=== PATIENT | male | born 1955 | race American Indian/Alaskan Native ===

== ENCOUNTER 2016-07-28 06:54 | Inpatient (IN) | payer OTHER ==
--- NOTE | 2016-07-28 07:51 | PDOC ---
*Physical Exam - Vital Signs Last Vital Signs Temp Pulse Resp BP Pulse Ox 98.5 F 102 H 18 164/105 97 07/28/16 07:16 07/28/16 07:16 07/28/16 07:16 07/28/16 07:16 07/28/16 07:16 ED Treatment Course - LABORATORY CBC & Chemistry Diagram: 07/28/16 08:30 07/28/16 08:00 Medical Decision Making - Critical Care Time Total Critical Care Time (minutes): 35 Critical Care Statement: The care of this patient involved high complexity decision making to prevent further life threatening deterioration of the patient 's condition and/or to evalute & treat vital organ system(s) failure or risk of failure. - Medical Decision Making 07/28/16 07:51 Pt seen by the Advanced Practice Provider under my direct supervision Ancillary studies reviewed I agree with plan as outlined by the Advanced Practice Provider ANA Abad 07/28/16 14:54 Code esposito activated in Nuclear stress lab. Prior to going to the stress lab at 13:48, the patient has had no neuro deficits. Ambulatory, and speaking. At 2:20 pm, code esposito initiated. Pt was noted to have slurred speech, aphasia, R sided facial droop and neglect, RUE and RLE weakness compared to left. Does not follow commands. Clinically, patient appears to have a stroke. CT scan of head demonstrates: acute vs. subacute right sided cerebellum stroke. However, this right sided stroke symptoms do not match up to the patient's CT finding. I suspect that the patient has had a previous subacute stroke (possible blood clot source from heart, as patient is likely with cardiomyopathy). This is likely a new stroke (likely left MCA). Pt is within TPA window. NIHSS: 17. Case discussed with Dr. Ortiz, who is coming in hospital now to evaluate patient. TPA on standby. alerted and will be coming into ED. 07/28/16 15:42 Dr. Ortiz evaluated patient and evaluated scans. Agrees for IV TPA for patient. at bedside consented for TPA. TPA ordered. The plan is to perform CTA of head and neck for large vessel occlusion after completion of TPA. If CTA demonstrates findings for large vessel occlusion, patient needs to be considered for transfer for endovascular therapy. Dr. Ortiz agrees with plan. in agreement with plan. *DC/Admit/Observation/Transfer Diagnosis at time of Disposition: Dyspnea on exertion, Elevated blood pressure reading Lower extremity edema Qualifiers: Laterality: bilateral Qualified Code(s): R60.0 - Localized edema
--- NOTE | 2016-07-28 08:02 | PDOC ---
History of Present Illness - General Chief Complaint: Shortness of Breath Stated Complaint: DIZZINESS/BLOOD PRESSURE PROBLEM Time Seen by Provider: 07/28/16 07:21 History Source: Patient Exam Limitations: No Limitations - History of Present Illness Initial Comments: 07/28/16 07:56 60-year-old male with history of diabetes, hypertension, dyslipidemia and CAD presents with increasing shortness of breath since May associated with continual elevated blood pressure. Patient states went to see his PCP Dr. Cisneros in May where he added Lasix to the patient's regimen and has a follow -up appointment with him on August 17. Patient states was seen by Dr. Bradley 3 years ago where he had an angioplasty but has not followed up with him since and is looking for a new education specialist since he is unhappy with the staff/office of Dr. Bradley's. Patient denies chest pain, headache, dizziness nausea, diaphoresis, orthopnea, or recent illness. Patient does complain of shortness of breath with minimal exertion, lower extremity edema, and a blood pressure ranging anywhere from 150s-106s over 90 -100. Presenting Symptoms: Short of Breath Timing/Duration: reports: intermittent Severity/Quality: reports: mild Prior Chest Pain/Cardiac Workup: reports: Other Aspirin Received prior to arrival (Core Measure): Yes: no aspirin today Associated Symptoms: Yes: Shortness of Breath Past History - Past Medical History Allergies/Adverse Reactions: Allergies Allergy/AdvReac Type Severity Reaction Status Date / Time No Known Allergies Allergy Verified 07/28/16 07:19 Home Medications: Ambulatory Orders Aspirin [ASA -] 81 mg PO DAILY 07/28/16 Furosemide 20 mg PO DAILY 07/28/16 Glipizide 4 mg PO BID 07/28/16 Metformin HCl 500 mg BID 07/28/16 Metoprolol Succinate [Toprol Xl -] 25 mg PO DAILY 07/28/16 Piroxicam 20 mg PO DAILY 07/28/16 Valsartan [Diovan] 160 mg PO DAILY 07/28/16 Cardiac Disorders: Yes Diabetes: Yes HTN: Yes Hypercholesterolemia: Yes - Surgical History Cardiac Surgery: (ANGIOPLASTY) - Psycho/Social/Smoking Cessation Hx Suicidal Ideation: No Smoking History: Never smoked Information on smoking cessation initiated: No Patient Lives Alone: No Lives with/in: spouse/SO Review of Systems - Review of Systems Able to Perform ROS?: Yes Constitutional: No: Symptoms Reported HEENTM: No: Symptoms Reported Respiratory: Yes: SOB with Exertion Cardiac (ROS): No: Symptoms Reported ABD/GI: No: Symptoms Reported : No: Symptoms Reported Musculoskeletal: No: Symptoms Reported Integumentary: No: Symptoms Reported Neurological: No: Symptoms reported Endocrine: No: Symptoms Reported Hematologic/Lymphatic: No: Symptoms Reported *Physical Exam - Vital Signs Last Vital Signs Temp Pulse Resp BP Pulse Ox 98 F 75 16 142/65 96 07/28/16 16:05 07/28/16 18:07 07/28/16 18:07 07/28/16 18:07 07/28/16 18:07 - Physical Exam General Appearance: Yes: Nourished, Appropriately Dressed. No: Apparent Distress HEENT: positive: EOMI, THANH. negative: Pale Conjunctivae Neck: positive: Supple Respiratory/Chest: positive: Lungs Clear, Normal Breath Sounds. negative: Respiratory Distress, Accessory Muscle Use Cardiovascular: positive: Regular Rhythm, Regular Rate (96 on monitor). negative: Murmur Gastrointestinal/Abdominal: positive: Normal Bowel Sounds, Soft, Distended. negative: Tenderness Extremity: positive: Normal Capillary Refill, Pedal Edema (2+ pitting) Integumentary: positive: Normal Color, Warm, Moist Neurologic: positive: Motor Strength 5/5 (ambulatory) Heart Score/ECG Review - ECG Intrepretation Rhythm: Regular Rhythm (sinus rhythm with left atrial enlargement rate 94.) ED Treatment Course - LABORATORY CBC & Chemistry Diagram: 07/28/16 08:30 07/28/16 08:00 - ADDITIONAL ORDERS Additional order review: Laboratory Results 07/28/16 07/28/16 08:00 08:00 Sodium 136 Potassium 4.3 Chloride 100 Carbon Dioxide 26 Anion Gap 10 BUN 17 D Creatinine 1.2 D Creat Clearance w eGFR > 60 Random Glucose 236 H D Calcium 8.5 Total Bilirubin 0.7 D AST 22 D ALT 44 D Alkaline Phosphatase 82 Creatine Kinase 287 Creatine Kinase Index 2.1 CK-MB (CK-2) 6.018 H CK-MB (CK-2) Rel Index Cancelled Troponin I < 0.02 B-Natriuretic Peptide 3390.58 H Total Protein 6.3 L Albumin 3.7 07/28/16 08:30 RBC 4.13 MCV 90.8 MCHC 33.3 RDW 14.6 MPV 7.9 Neutrophils % 74.0 D Lymphocytes % 18.4 D Monocytes % 6.1 Eosinophils % 0.8 Basophils % 0.7 - RADIOLOGY Radiology Studies Ordered: Category Date Time Status CHEST X-RAY PORTABLE* [RAD] Stat Radiology 07/28/16 07:25 Completed - Medications Given in the ED: ED Medications Discontinued Medications Generic Name Dose Route Start Last Admin Trade Name Freq PRN Reason Stop Dose Admin Furosemide 40 mg 07/28/16 12:28 07/28/16 13:01 Lasix Injection - IVPUSH 07/28/16 12:29 40 mg ONCE ONE Administration Labetalol HCl 10 mg 07/28/16 14:48 07/28/16 16:06 Normodyne Injection - IVPUSH 07/28/16 14:49 10 mg ONCE ONE Administration Labetalol HCl 10 mg 07/28/16 15:55 07/28/16 16:06 Normodyne Injection - IVPUSH 07/28/16 15:56 10 mg ONCE ONE Administration Labetalol HCl 10 mg 07/28/16 15:56 07/28/16 16:06 Normodyne Injection - IVPUSH 07/28/16 15:57 10 mg ONCE ONE Administration Lorazepam 1 mg 07/28/16 18:08 07/28/16 18:22 Ativan Injection - IVPUSH 07/28/16 18:09 1 mg ONCE ONE Administration Medical Decision Making - Critical Care Time Total Critical Care Time (minutes): 50 Critical Care Statement: The care of this patient involved high complexity decision making to prevent further life threatening deterioration of the patient 's condition and/or to evalute & treat vital organ system(s) failure or risk of failure. - Medical Decision Making 07/28/16 08:06 Patient with complaints of worsening shortness of breath on exertion, continual elevated blood pressure, and lower extremity edema for the past 2 months. Patient states was placed on Lasix [address] Cisneros which has not seemed to alleviate his symptoms. Patient denies history of CHF and has not seen a education specialist in approximately 3-1/2 years. patient on exam had 2+ pitting edema with no crackles or rales auscultated on exam. Patient ordered for cardiac workup including a BNP. Will contact patient's PCP Dr. Cisneros shortly 07/28/16 10:15 . Chest x-ray negative for acute findings. Case discussed with Dr. Cisneros and would like patient to be admitted to telemetry and have consultation with education specialist, Dr. Barker. Call placed to . 07/28/16 14:52 Patient was seen by education specialist who recommended that he have a stress test and a code esposito was activated while patient with a stress test since he was found to be mumbling and not following commands. Found patient to be aphasic with a left lateral gaze unable to follow commands with decreased right-sided sensation. CT of the head shows 07/28/16 14:55 Laboratory Tests 07/28/16 07/28/16 08:00 08:30 WBC 7.4 Hgb 12.5 Hct 37.5 Neutrophils % 74.0 D Sodium 136 Potassium 4.3 Chloride 100 Carbon Dioxide 26 Anion Gap 10 BUN 17 D Creatinine 1.2 D Random Glucose 236 H D Total Bilirubin 0.7 D AST 22 D ALT 44 D CK-MB (CK-2) 6.018 H Troponin I < 0.02 B-Natriuretic Peptide 3390.58 H 07/28/16 14:55 CT shows a well-developed demarcated had presents nonhemorrhagic acute or subacute infarct seen in the right posterior cerebellar hemisphere measuring up to 21 mm x 15 mm x 19 mm. Case discussed with Dr. Dale here in the ER shortly. also notified and is coming back to the emergency room. Dr. Cisneros also updated on case. Patient is to receive labetalol 10 secondary to elevated BP of 182/112 with a heart rate of 106. Will repeat if BP and pulse remained elevated at 10 mg. 07/28/16 15:17 Dr. Faith neurologist here at bedside. Patient reexamined and CT compared to one from 2014 patient is a candidate for TPA. Patient is still aphasic unable to follow commands. BP 171/90 with a heart rate of 97. Patient will receive second dose of labetalol 10 mg. made aware and consent given over the phone. 07/28/16 16:13 at bedside. Patient has a CTA of the head and neck scheduled in one hour after completion of the TPA. Patient given third dose of labetalol and will start a Cardene drip since pharmacy states we do not have enough medication to start a labetalol drip. 07/28/16 17:44 CTA of the neck shows short segment stenosis is seen involving the postbulbar segment of the right internal carotid artery which is probably 70% allowing for motion artifact. Note however is made of an apparent mild to moderate diffuse luminal narrowing involving the remainder of the right internal carotid artery which may be on the adaptive basis due to the previous described stenosis. There is approximately 30% stenosis at the origin of the left internal carotid artery. Case discussed with Dr. Ortiz neurologist and states wants patient to go for an MRI of the brain. Called MRI and they can take the patient now. Check list will be performed by the nurse at bedside and brought over by him. Dr. Ortiz does not feel that this CTA requires endovascular service since all the major arteries (MCA/RCA) to the brain are open despite the stenosis. 07/28/16 18:51 Case discussed with a neurologist Dr. Ortiz and feels patient may go upstairs and will review the MRI. Case also discussed with consumer analyst Dr. Lang who accepted patient to the floor. Patient's blood pressure 142/86 heart rate 84. Patient hasn't been assigned to room 16. 07/28/16 19:[address] Bright who states the right infarct is again noted but also all left frontal cortical infarct is seen. Attempting to call Dr. Ortiz to discuss findings although she stated patient is not a candidate for transfer and she'll be admitted to the ICU here at [facility]. *DC/Admit/Observation/Transfer Diagnosis at time of Disposition: Dyspnea on exertion, Elevated blood pressure reading Lower extremity edema Qualifiers: Laterality: bilateral Qualified Code(s): R60.0 - Localized edema - Discharge Dispostion Admit: Yes
[2016-07-28 08:52] LABS: ALBUMIN 3.7 g/dl (3.4-5.0); ANION GAP 10 (8-16); CALCIUM 8.5 mg/dL (8.5-10.1); CO2 26 mmol/L (21-32); CREATININE 1.2 mg/dL (0.7-1.3); GLUCOSE,RANDOM 236 mg/dL (74-106); SGPT/ALT 44 U/L (12-78)
[2016-07-28 08:57] LABS: ALK PHOS 82 U/L (45-117); BILIRUBIN,TOTAL 0.7 mg/dL (0.2-1.0); SGOT/AST 22 U/L (15-37); TOT PROT 6.3 g/dl (6.4-8.2); TROPONIN I < 0.02 ng/ml (0.00-0.05)
[2016-07-28 09:18] LABS: WHITE BLOOD COUNT 7.4 K/mm3 (4.0-10.0)
[2016-07-28 09:19] LABS: MCH 30.2 pg (25.7-33.7); MCHC 33.3 g/dl (32.0-35.9); MEAN CELL VOLUME 90.8 fl (80-96); MEAN PLT VOLUME 7.9 fl (7.5-11.1); PLATELET COUNT 205 K/MM3 (134-434); RDW 14.6 % (11.9-15.9)
[2016-07-28 09:20] LABS: BASOPHIL 0.7 % (0-2.0); EOSINOPHIL 0.8 % (0-4.5)
--- NOTE | 2016-07-28 12:27 | CON.CARD ---
Consult Consult Specialty:: Cardiology Referred by:: Dr. Cisneros Reason for Consultation:: Exertional dyspnea - History of Present Illness Chief Complaint: Exertional dyspnea History of Present Illness: 60 yo male with DM type 2, HTN, hyperlipidemia, and reported mild CAD, who presents to ED with ~ 1 month history of exertional dyspnea. Patient reports that he gets SOB walking only down the hallway. He reports undergoing a cardiac catheterization ~ 3 years ago at [facility] and reports only having mild non- obstructive disease at that time. No PCI was performed. He also reports that his BP has not been well controlled with reported SBP 150-160s on his valsartan 160 mg po daily. Patient was previously under the care of Dr. Bradley but due to office personnel reasons he no longer wants to follow with that practice and is requesting care under a new tire fabric impregnating range tender. Denies melena, hematochezia, or hematemesis. He reports having an "normal" echocardiogram at his PMD's office in February 2016. - History Source History Provided By: Patient Limitations to Obtaining History: No Limitations - Past Medical History Cardio/Vascular: Yes: CAD (Mild non-obstructive CAD per reported cath 3 years ago), HTN, Hyperlipdemia Endocrine: Yes: Diabetes Mellitus - Alcohol/Substance Use Hx Alcohol Use: No History of Substance Use: reports: None - Smoking History Smoking history: Never smoked Home Medications - Allergies Allergies/Adverse Reactions: Allergies Allergy/AdvReac Type Severity Reaction Status Date / Time No Known Allergies Allergy Verified 07/28/16 07:19 - Home Medications Home Medications: Ambulatory Orders Aspirin [ASA -] 81 mg PO DAILY 07/28/16 Furosemide 20 mg PO 07/28/16 Glipizide 4 mg PO BID 07/28/16 Metformin HCl 500 mg BID 07/28/16 Metoprolol Succinate/Hctz [Dutoprol 25-12.5 mg Tablet] 25 mg PO 07/28/16 Valsartan [Diovan] 160 mg PO DAILY 07/28/16 Family Disease History - Family Disease History Family History: Denies (premature CAD or sudden cardiac ) Review of Systems - Review of Systems Constitutional: reports: No Symptoms Eyes: reports: No Symptoms HENT: reports: No Symptoms Neck: reports: No Symptoms Cardiovascular: reports: Edema, Shortness of Breath Respiratory: reports: SOB, SOB on Exertion Gastrointestinal: reports: No Symptoms Genitourinary: reports: No Symptoms Musculoskeletal: reports: No Symptoms Neurological: reports: No Symptoms Endocrine: reports: No Symptoms Hematology/Lymphatic: reports: No Symptoms Psychiatric: reports: No Symptoms Vital Signs: Vital Signs Temperature 98.5 F 07/28/16 07:16 Pulse Rate 88 07/28/16 12:06 Respiratory Rate 14 07/28/16 12:06 Blood Pressure 151/81 07/28/16 12:06 O2 Sat by Pulse Oximetry (%) 98 07/28/16 12:06 Constitutional: Yes: Well Nourished, No Distress, Obese Eyes: Yes: Conjunctiva Clear, EOM Intact HENT: Yes: Atraumatic, Normocephalic Respiratory: Yes: CTA Bilaterally Gastrointestinal: Yes: Normal Bowel Sounds, Soft. No: Tenderness Cardiovascular: Yes: Regular Rate and Rhythm JVD: No Carotid Bruit: No Heart Sounds: Yes: S1, S2 Murmur: No: Systolic Murmur Musculoskeletal: Yes: WNL Edema: Yes Edema: LLE: 1+, RLE: 1+ Neurological: Yes: Alert, Oriented, Cran Nerves II-XII Intact ...Motor Strength: WNL Psychiatric: Yes: WNL - Other Data 07/28/16 ECG: Sinus, LVH, LAD, left atrial enlargement, non-specific ST-T abnormalities Imaging - Results Chest X-ray: Image Reviewed (07/28/16: Mild pulmonary vascular congestion) Assessment/Plan 60 yo male with DM type 2, HTN, hyperlipidemia, and reported mild CAD (per cardiac cath ~ 3 months ago), who presents to ED with ~ 1 month history of exertional dyspnea. CXR demonstrates mild vascular congestion per my review. BNP elevated at 3390. Suspicion for CHF either due to underlying ischemic heart disease versus long standing uncontrolled HTN. 1st troponin negative. No ischemic ECG changes, but does demonstrate LVH. RECS: Admit to telemetry. Will perform echocardiogram to assess LV function and structural heart disease. Treadmill nuclear stress test for ischemic evaluation/risk stratification. Hold metoprolol in preparation for stress test. Will increase valsartan as needed for optimal BP control. Will follow. Call with questions.
[2016-07-28] MEDS ORDERED: FUROSEMIDE 40 MG/4 ML INJECTABLE VIAL IVPUSH ONE (12:28)
[2016-07-28] MEDS ORDERED: FUROSEMIDE 40 MG/4 ML INJECTABLE VIAL ONE (12:58)
[2016-07-28] MEDS ORDERED: LABETALOL HCL 5 MG/1 ML (100MG/20 ML VIAL) IVPUSH ONE ×3 (14:48→15:56)
--- NOTE | 2016-07-28 14:51 | PDOC ---
NIH Stroke Scale - Last Known Well Date/Time & Onset Date Last Known Well: 07/28/16 Time Last Known Well: 13:48 - Initial Evaluation Level of consciousness: Not alert, but arousable with minimal stimulation Ask patient the month and their age: Both incorrect Ask patient to open & close eyes; make fist and let go: Both incorrect Best gaze (horizontal eye movement): Partial gaze palsy Visual field testing: No visual field loss Facial paresis (Show teeth/raise eyebrows/close eyes tight): Minor paralysis ( flattened nasolabial fold, asymmetry on smiling) Motor Function: Left Arm: Normal Motor Function: Right Arm: Drift Motor Function: Left Leg: Normal (extends leg 30 degrees for 5 seconds without drift) Motor Function: Right Leg: Drift Limb Ataxia: No ataxia Sensory(Use pinprick test arms,legs,trunk,face/side to side): Severe to total sensory loss Best language (Describe picture, name items, read sentences): Severe aphasia Dysarthria (read several words): Near unintelligible or unable to speak Extinction and Inattention: Profound jesus-inattention or extinction to more than one modality - Total Score NIH Stroke Scale Score: 17
[2016-07-28] MEDS ORDERED: LABETALOL HCL 5 MG/1 ML (200MG/40ML VIAL) IVPB ONE (14:52)
[2016-07-28] MEDS ORDERED: ALTEPLASE 100MG 100 MG IVPB ONE (14:56)
[2016-07-28 15:06] LABS: INR 1.06 (0.82-1.09); PROTHROMBIN TIME (PATIENT) 11.7 SEC (9.98-11.88)
[2016-07-28] MEDS: ALTEPLASE 50 MG VIAL IVPB ONE ×2 (15:20)
--- NOTE | 2016-07-28 15:35 | RAPID ---
Physical Examination Vital Signs: Vital Signs Temperature 98.5 F 07/28/16 07:16 Pulse Rate 88 07/28/16 12:06 Respiratory Rate 14 07/28/16 12:06 Blood Pressure 191/121 07/28/16 14:30 O2 Sat by Pulse Oximetry (%) 98 07/28/16 12:06 Findings/Remarks: Code Qureshi initiated in nuclear cardiology As per tech, pt received radioactive isotope and was placed in the machine and became aphasic and not responding to commands on my arrival pt is mumbling and unable to respond to simple questioning. + facial droop, pronator drift on the R. does not follow commands. spontaneous movement of the LUE and LLE noted but not moving R side. vitals stable. Fingerstick 107. NIHSS 14 pt emergently pushed to CT for head CT and transferred to ER. neurology contacted about initiation of TPA.
[2016-07-28] MEDS ORDERED: LABETALOL HCL INJECTION 1,000 MG in SODIUM CHLORIDE 800 ML IV SCH (16:00)
[2016-07-28 16:19] VITALS: BMI 79.4
[2016-07-28] MEDS: NICARDIPINE 25 MG in DEXTROSE 5%-WATER - 240 ML IVPB SCH (16:45)
--- NOTE | 2016-07-28 17:03 | EKG ---
Test Reason : Blood Pressure : / mmHG Vent. Rate : 094 BPM Atrial Rate : 094 BPM P-R Int : 138 ms QRS Dur : 122 ms QT Int : 390 ms P-R-T Axes : 068 -58 070 degrees QTc Int : 487 ms NORMAL SINUS RHYTHM POSSIBLE LEFT ATRIAL ENLARGEMENT LEFT ANTERIOR FASCICULAR BLOCK LEFT VENTRICULAR HYPERTROPHY WITH QRS WIDENING ABNORMAL ECG NO PREVIOUS ECGS AVAILABLE Confirmed by FRANCA HERRING, VIRIDIANA ([id number]) on 07/28/2016 5:03:33 PM Referred By: Confirmed By:VIRIDIANA SCHULTE MD
--- NOTE | 2016-07-28 17:22 | CON.NEURO ---
Consult Consult Specialty:: NEUROLOGY Reason for Consultation:: sudden right side weakness, aphasia - History of Present Illness History of Present Illness: 60 yo male with pmh.of DM type 2, HTN, hyperlipidemia, CAD, on ASA daily, presented to ED for one month exertional dyspnea. He was talking and walking in ED this morning till 1.38pm. He was admitted for cardiac work up and sent to the stress cardiac lab. In the lab.stress test at 2.20pm. it was noticed then he is not talking anymore and he has right facial droop and righs side weakness. Code esposito- stroke code was activated at 2.20pm. in the cardiac stress lab. LSN at 1.38pm. in ED. Examined the patient in ED at 3.00pm. CT head done , was negative for intracranial bleed. The was consulted over the phone and obtain consent for ivtpa. bolus iv.tpa at 3.21pm. NIHS was 20 points: 2p.not answers questions, 2p. not following commands, 1p left gaze deviation, 1p.RCFP, 3p. RUE, 2p RLE, 1p right sensory loss, 2p. severe aphasia, 2p . severe dysarthria, 1p. extinction - right side neglect. - Past Medical History Cardio/Vascular: Yes: CAD (Mild non-obstructive CAD per reported cath 3 years ago), HTN, Hyperlipdemia Endocrine: Yes: Diabetes Mellitus - Alcohol/Substance Use Hx Alcohol Use: No History of Substance Use: reports: None - Smoking History Smoking history: Never smoked Home Medications - Allergies Allergies/Adverse Reactions: Allergies Allergy/AdvReac Type Severity Reaction Status Date / Time No Known Allergies Allergy Verified 07/28/16 07:19 - Home Medications Home Medications: Ambulatory Orders Aspirin [ASA -] 81 mg PO DAILY 07/28/16 Furosemide 20 mg PO DAILY 07/28/16 Glipizide 4 mg PO BID 07/28/16 Metformin HCl 500 mg BID 07/28/16 Metoprolol Succinate [Toprol Xl -] 25 mg PO DAILY 07/28/16 Piroxicam 20 mg PO DAILY 07/28/16 Valsartan [Diovan] 160 mg PO DAILY 07/28/16 Review of Systems - Review of Systems Constitutional: reports: No Symptoms Eyes: reports: No Symptoms HENT: reports: No Symptoms Neck: reports: No Symptoms Cardiovascular: reports: Edema, Shortness of Breath Respiratory: reports: SOB, SOB on Exertion Gastrointestinal: reports: No Symptoms Genitourinary: reports: No Symptoms Breasts: reports: No Symptoms Reported Musculoskeletal: reports: No Symptoms Integumentary: reports: No Symptoms Neurological: reports: No Symptoms Endocrine: reports: No Symptoms Hematology/Lymphatic: reports: No Symptoms Psychiatric: reports: No Symptoms Physical Exam-Neuro Vital Signs: Vital Signs Temperature 98 F 07/28/16 16:05 Pulse Rate 83 07/28/16 16:05 Respiratory Rate 18 07/28/16 16:05 Blood Pressure 156/88 07/28/16 16:05 O2 Sat by Pulse Oximetry (%) 98 07/28/16 16:05 Constitutional: Yes: Anxious Neck: Yes: Supple, Trachea Midline Cardiovascular: Yes: Regular Rate and Rhythm, S1, S2 Respiratory: Yes: Regular, CTA Bilaterally Gastrointestinal: Yes: Normal Bowel Sounds, Soft Musculoskeletal: Yes: WNL Edema: Yes Edema: LLE: Trace, RLE: Trace Psychiatric: Yes: Alert Labs: INR, PTT INR 1.06 (0.82-1.09) 07/28/16 14:50 - Neuro Exam Eyes: Yes: PERRLA Speech: Global Aphasia Dominant Hand: Right Cranial Nerves II-XII Intact: No Gag: Present DTR's: 1+ Left Bicep, 1+ Right Bicep, 1+ Left Tricep, 1+ Right Tricep, 1+ Left Brachioradialis, 1+ Right Brachioradialis, 1+ Left Achilles, 1+ Right Achilles Babinski: Absent Response to light touch: Abnormal NIH Stroke Scale - Last Known Well Date/Time & Onset Symptom Onset Date: 07/28/16 Symptom Onset Time: 14:20 Date Last Known Well: 07/28/16 Time Last Known Well: 13:40 - Initial Evaluation Level of consciousness: Alert Ask patient the month & their age: Both Incorrect Ask Patient to open & close eyes; make fist and let go.: Both Incorrect Best gaze (horizontal eye movement): Partial Gaze Palsy Visual Field Testing: No Visual Loss Facial Palsy(Show teeth or raise eyebrows & close eyes: Minor Paralysis ( Flattened nasolabial fold, asymmetry on smiling). Motor Function - Right Arm: No effort against gravity Motor Function - Left Leg: No Drift; leg holds 30 degree position for full 5 seconds. Motor Function - Right Leg: Some Effort against gravity Limb Ataxia: Absent (also used for the pt who does not understand or paralyzed) Sensory (arms, legs, trunk, face): Severe to total sensory loss; pt not aware of being touched Best Language: Severe aphasia;all communication is through fragmentary expression Dysarthria/Articulation: speech so slurred as to be unintelligible; or is mute/ anarthric Extinction and Inattention: Inattention or Extinction bilaterally one of the sensory modalities - Total Score NIH Stroke Scale Score: 16 Imaging - Results Cat Scan: Report Reviewed, Image Reviewed Problem List - Problems (1) Acute ischemic left middle cerebral artery (MCA) stroke Code(s): I63.512 - CEREB INFRC D/T UNSP OCCLS OR STENOS OF LEFT MID CEREB ART (2) Aphasia complicating stroke Code(s): I63.9 - CEREBRAL INFARCTION, UNSPECIFIED R47.01 - APHASIA (3) Hemiplegia affecting dominant side Code(s): G81.90 - HEMIPLEGIA, UNSPECIFIED AFFECTING UNSPECIFIED SIDE Assessment/Plan 60 yo male with pmh.of DM type 2, HTN, hyperlipidemia, CAD, on ASA daily, presented to ED for one month exertional dyspnea. He was talking and walking in ED this morning till 1.38pm. He was admitted for cardiac work up and sent to the stress cardiac lab. In the lab.stress test at 2.20pm. it was noticed then he is not talking anymore and he has right facial droop and righs side weakness. Code esposito- stroke code was activated at 2.20pm. in the cardiac stress lab. LSN at 1.38pm. in ED. Examined the patient in ED at 3.00pm. CT head done , was negative for intracranial bleed. The was consulted over the phone and obtain consent for ivtpa. bolus iv.tpa at 3.21pm. NIHS was 20 points: 2p.not answers questions, 2p. not following commands, 1p left gaze deviation, 1p.RCFP, 3p. RUE, 2p RLE, 1p right sensory loss, 2p. severe aphasia, 2p . severe dysarthria, 1p. extinction - right side neglect. Impression: acute ischemic stroke . Plan: - patient was a candidate for ivtpa. he received ivtpa in the hospital. - maintain SBP 100-130mmHG. - labetolol ip. - NPO for now. - admit to ICU. neurocheck q 1h. - check for CTA head and neck if there is a major vessel occlusion . The patient should be transferred to an endovascular center if any intracranial MCA or ICA occlusion. However the patient started to move the RUE after ivtpa infusion. Still aphasic global. - to check with CT head tomorrow at 4pm. if no bleed to be started on ASA and Plavix tomorrow - PT/ST/OT - DVT prophylaxis. - stroke work up : MRI brain, echocardiogram, doppler carotids, lipids profile, HbA1C thank you for this consult. Will follow Critical Care Time Spent in ED 50min.
[2016-07-28] MEDS ORDERED: LORAZEPAM CARPU-JECT 2 MG/ML DISP.SYRIN IVPUSH ONE (18:08)
[2016-07-28] MEDS ORDERED: LORAZEPAM CARPU-JECT 2 MG/ML DISP.SYRIN ONE (18:10)
--- NOTE | 2016-07-28 18:14 | HP ---
Admitting History and Physical - Admission History of Present Illness: 60 yo male with pmh.of DM type 2, HTN, hyperlipidemia, CAD, on ASA daily, presented to ED for one month exertional dyspnea. He was talking and walking in ED this morning till 1.38pm. He was admitted for cardiac work up and sent to the stress cardiac lab. In the lab.stress test at 2.20pm. it was noticed then he is not talking anymore and he has right facial droop and righs side weakness. Code esposito- stroke code was activated at 2.20pm. in the cardiac stress lab. Pt evaluated in er moving extremities awake can say a few words - Past Medical History Cardiovascular: Yes: CAD (Mild non-obstructive CAD per reported cath 3 years ago ), HTN, Hyperlipdemia Endocrine: Yes: Diabetes Mellitus - Smoking History Smoking history: Never smoked - Alcohol/Substance Use Hx Alcohol Use: No History of Substance Use: reports: None Home Medications - Allergies Allergies/Adverse Reactions: Allergies Allergy/AdvReac Type Severity Reaction Status Date / Time No Known Allergies Allergy Verified 07/28/16 07:19 - Home Medications Home Medications: Ambulatory Orders Aspirin [ASA -] 81 mg PO DAILY 07/28/16 Furosemide 20 mg PO DAILY 07/28/16 Glipizide 4 mg PO BID 07/28/16 Metformin HCl 500 mg BID 07/28/16 Metoprolol Succinate [Toprol Xl -] 25 mg PO DAILY 07/28/16 Piroxicam 20 mg PO DAILY 07/28/16 Valsartan [Diovan] 160 mg PO DAILY 07/28/16 Review of Systems - Review of Systems Cardiovascular: reports: Chest Pain, Shortness of Breath. denies: Palpitations Respiratory: reports: SOB, SOB on Exertion Neurological: reports: Change in LOC, Change in Speech, Weakness (rt side) Physical Examination Vital Signs: Vital Signs Temperature 98 F 07/28/16 16:05 Pulse Rate 75 07/28/16 18:07 Respiratory Rate 16 07/28/16 18:07 Blood Pressure 142/65 07/28/16 18:07 O2 Sat by Pulse Oximetry (%) 96 07/28/16 18:07 Cardiovascular: Yes: Murmur, S1, S2 Respiratory: Yes: Regular, CTA Bilaterally Gastrointestinal: Yes: Normal Bowel Sounds, Soft Neurological: Yes: Alert, Aphasia, Weakness (rt side) Problem List - Problems (1) Acute ischemic left middle cerebral artery (MCA) stroke Assessment/Plan: S/P TPA ASA PER NEURO STATIN BP CONTROL Code(s): I63.512 - CEREB INFRC D/T UNSP OCCLS OR STENOS OF LEFT MID CEREB ART (2) Aphasia complicating stroke Assessment/Plan: ABOVE Code(s): I63.9 - CEREBRAL INFARCTION, UNSPECIFIED R47.01 - APHASIA (3) Dyspnea on exertion Assessment/Plan: S/P LASIX MONITOR ECHO NOTED--LV DYSFUNCTION Code(s): R06.09 - OTHER FORMS OF DYSPNEA (4) CAD (coronary artery disease) Assessment/Plan: FOLLOW CE Code(s): I25.10 - ATHSCL HEART DISEASE OF [place] CORONARY ARTERY W/O ANG PCTRS
[2016-07-28 18:54] LABS: TROPONIN I 0.02 ng/ml (0.00-0.05)
--- NOTE | 2016-07-28 20:39 | CONSULT ---
Consult Consult Specialty:: PULM / CCM Referred by:: Dr. Smooth Cisneros Reason for Consultation:: CVA - History of Present Illness Chief Complaint: CVA History of Present Illness: Mr. De Oliveira is a 60 y/o man w/ a Hx/o HTN, DMII, HL, and CAD who presents to the ED today c/o worsening exertional dyspnea X past 3 mos. Pt reports SOB w/ minimal walking. A/p pt report, pt underwent cardiac catheterization ~ 3 years ago at [facility] and reports having only mild non-obstructive disease w/ NO PCI performed @ that time. The pt also reports that his BP has not been well controlled w/ reported SBP 150-160s despite full med compliance (including valsartan X 160 mg PO QD). A/p report, the Pt denied any: prodrome, CP, orthopnea, diaphoresis, DRAPER, Dizzy, or N/V/D. The pt did endorse lower extremity edema. Pt was seen by CARDS in ED and it was decided to perform a nuclear stress test this afternoon. @ 1440Hrs this PM the Pt was noted to have sudden slurred speech, aphasia, stopped following commands, R sided facial droop and neglect, w/ RUE and RLE weakness. A [facility] Code Qureshi - stroke code was activated @ 1440Hrs in the cardiac stress lab. (Pt last seen normal @ 1338Hrs in ED). NIHS = 20: 2p.not answers questions, 2p. not following commands, 1p left gaze deviation, 1p.RCFP, 3p. RUE, 2p RLE, 1p right sensory loss, 2p. severe aphasia, 2p . severe dysarthria, 1p. extinction - right side neglect. NCHCT negative for intracranial bleed. IV TPA Adm @ 1521Hrs w/ marked improvememt in all Signs & symptoms. Pt Transferred to the ICU for close observation, frequent Neuro checks, & tight BP control w/ vasoactive IV medication gtts. MRI Nikita shows acute non-hemorrhagic L frontal cortical infarction. - History Source History Provided By: Significant Other, Medical Record Limitations to Obtaining History: Clinical Condition - Past Medical History Cardio/Vascular: Yes: CAD (Mild non-obstructive CAD per reported cath 3 years ago), HTN, Hyperlipdemia Endocrine: Yes: Diabetes Mellitus - Alcohol/Substance Use Hx Alcohol Use: No History of Substance Use: reports: None - Smoking History Smoking history: Never smoked - Social History Usual Living Arrangement: With Spouse ADL: Independent Occupation: [employer] History of Recent Travel: No Home Medications - Allergies Allergies/Adverse Reactions: Allergies Allergy/AdvReac Type Severity Reaction Status Date / Time No Known Allergies Allergy Verified 07/28/16 07:19 - Home Medications Home Medications: Ambulatory Orders Aspirin [ASA -] 81 mg PO DAILY 07/28/16 Furosemide 20 mg PO DAILY 07/28/16 Glipizide 4 mg PO BID 07/28/16 Metformin HCl 500 mg BID 07/28/16 Metoprolol Succinate [Toprol Xl -] 25 mg PO DAILY 07/28/16 Piroxicam 20 mg PO DAILY 07/28/16 Valsartan [Diovan] 160 mg PO DAILY 07/28/16 Family Disease History - Family Disease History Family History: Unable to Obtain (Aphasic) Review of Systems Unable to obtain ROS, reason: Aphasic Physical Exam Vital Signs: Vital Signs Temperature 98 F 07/28/16 16:05 Pulse Rate 75 07/28/16 18:07 Respiratory Rate 16 07/28/16 18:07 Blood Pressure 142/65 07/28/16 18:07 O2 Sat by Pulse Oximetry (%) 96 07/28/16 18:07 Constitutional: Yes: Well Nourished, No Distress, Calm Eyes: Yes: WNL, Conjunctiva Clear, EOM Intact HENT: Yes: WNL, Atraumatic, Normocephalic Neck: Yes: WNL, Supple, Trachea Midline Cardiovascular: Yes: WNL, Regular Rate and Rhythm, Murmur Respiratory: Yes: WNL, Regular, CTA Bilaterally Gastrointestinal: Yes: WNL, Normal Bowel Sounds, Soft, Abdomen, Obese ...Rectal Exam: Yes: Deferred Renal/: Yes: WNL Breast(s): Yes: WNL Musculoskeletal: Yes: WNL Extremities: Yes: WNL Edema: No Peripheral Pulses WNL: Yes ...Motor Strength: WNL Psychiatric: Yes: WNL, Alert Labs: CBC, BMP 07/28/16 08:30 07/28/16 08:00 Troponin, BNP 07/28/16 07/28/16 08:00 17:00 Troponin I < 0.02 0.02 B-Natriuretic Peptide 3390.58 H Imaging - Results Chest X-ray: Image Reviewed (07/28: Cardiomegaly. Mild vascular congestion otherwise clear (My Read).) Cat Scan: Report Reviewed (CTA HEAD & NECK 07/28: A short segment stenosis ( estimated @ ~ 70%) is identified involving the proximal R internal carotid artery and there is also associated adaptive luminal narrowing of the more distal R internal carotid artery.), Image Reviewed (NCHCT 07/28: NO ACUTE INTRACRANIAL HEMORRHAGE) MRI: Report Reviewed (07/28: Acute L Frontal Cortical infarction.) EKG: Image Reviewed (07/28: RSR in the 90's w/o ect, LVH w/ no ischemic changes, QTc = 487ms (My Read).) Problem List - Problems (1) Acute ischemic left middle cerebral artery (MCA) stroke Code(s): I63.512 - CEREB INFRC D/T UNSP OCCLS OR STENOS OF LEFT MID CEREB ART (2) Aphasia complicating stroke Code(s): I63.9 - CEREBRAL INFARCTION, UNSPECIFIED R47.01 - APHASIA (3) CAD (coronary artery disease) Code(s): I25.10 - ATHSCL HEART DISEASE OF [place] CORONARY ARTERY W/O ANG PCTRS (4) Elevated blood pressure reading Code(s): R03.0 - ELEVATED BLOOD-PRESSURE READING, W/O DIAGNOSIS OF HTN (5) Hyperlipidemia Code(s): E78.5 - HYPERLIPIDEMIA, UNSPECIFIED (6) Diabetes Code(s): E11.9 - TYPE 2 DIABETES MELLITUS WITHOUT COMPLICATIONS Assessment/Plan ASSESS: This is a 60 y/o man w/ HTN, DMII, HL, & CAD who presents to ED c/o SOB , developed an acute non-hemorrhagic CVA while in ED (m/l 2/2 major cardiomyopathy), now s/p TPA recovering well. PLAN: -NPO -HOB > 30 -Asp Precautions -FiO2 for an SpO2 > 92% -Neuro checks q 1hr -No Valsartan in the ICU -Nicardipine gtt for BP conrol Goal SBP 100 - 130 -LE Duplex -Carotid Dopplers -Lipid Profile -NEURO Consult -TTE -Troponin X 3 -check urine VMAs -check serum aldosterone -Check TSH / FreeT4 -am/pm cortisol level -CARDS Consult --> NEW CHF (BNP > 3,000) -FSs -Insulin prn -HgbA1C -SCDs -SQH a/p TPA protocol -PT/OT -Consider transfering this pt to an endovascular center for R internal carotid artery stenosis -Transfer pt to [address] [place] [address] Stroke Unit in the AM. This patient has multiple comorbidities including but NOT limited to HTN, HL, DMII, & CAD. From a clinical and treatment plan perspective, considering this pt s comorbidities as well as his new CVA, this pt has a high mortality rate and satisfies the definition of critical condition. Thus, this pt requires inpatient admit to the ICU and based on these facts I do certify that this pt is expected to receive hospital services for at least 2 midnights.
[2016-07-28 21:23] LABS: TROPONIN I 0.02 ng/ml (0.00-0.05)
[2016-07-28] MEDS: CHLORHEXIDINE GLUCONATE 4% CLEANSER FOR DECOLONIZATION TP SCH (21:30)
[2016-07-28] MEDS ORDERED: MUPIROCIN 2% TOPICAL OINTMENT FOR DECOLONIZATION NS SCH ×2 (22:00)
[2016-07-28] MEDS ORDERED: CHLORHEXIDINE GLUCONATE 4% CLEANSER FOR DECOLONIZATION TP SCH ×2 (22:00)
[2016-07-28] MEDS: ATORVASTATIN CA 80 MG TABLET (FP) PO SCH (22:32)
[2016-07-28] MEDS: MUPIROCIN 2% TOPICAL OINTMENT FOR DECOLONIZATION NS SCH (22:40)
[2016-07-28] MEDS ORDERED: niCARdipine HCL 25 MG/10 ML AMPUL IVPB ONE (23:38)
[2016-07-28] MEDS: INSULIN SLIDING SCALE (NOVOLOG) 1 VIAL SQ SCH (23:41)
--- NOTE | 2016-07-29 01:34 | CONSULT ---
Consult Consult Specialty:: endocrine Referred by:: dr.annabi lopez Reason for Consultation:: hypertensive crisis - History of Present Illness Chief Complaint: weakness and facial droop History of Present Illness: 60yo male with pmh.of DM type 2, HTN, hyperlipidemia, CAD, on ASA daily, presented to ED for one month exertional dyspnea. He was talking and walking in ED t61his morning till 1.38pm. He was admitted for cardiac work up and sent to the stress cardiac lab. In the lab.stress test at 2.20pm. it was noticed then he is not talking anymore and he has right facial droop and righs side weakness.his dad had a stroke.he denies history of thyroid disease. - History Source History Provided By: Patient - Past Medical History Cardio/Vascular: Yes: CAD (Mild non-obstructive CAD per reported cath 3 years ago), HTN, Hyperlipdemia Endocrine: Yes: Diabetes Mellitus - Alcohol/Substance Use Hx Alcohol Use: No History of Substance Use: reports: None - Smoking History Smoking history: Never smoked - Social History Usual Living Arrangement: With Spouse ADL: Independent Occupation: [employer] History of Recent Travel: No Home Medications - Allergies Allergies/Adverse Reactions: Allergies Allergy/AdvReac Type Severity Reaction Status Date / Time No Known Allergies Allergy Verified 07/28/16 07:19 - Home Medications Home Medications: Ambulatory Orders Aspirin [ASA -] 81 mg PO DAILY 07/28/16 Furosemide 20 mg PO DAILY 07/28/16 Glipizide 4 mg PO BID 07/28/16 Metformin HCl 500 mg BID 07/28/16 Metoprolol Succinate [Toprol Xl -] 25 mg PO DAILY 07/28/16 Piroxicam 20 mg PO DAILY 07/28/16 Valsartan [Diovan] 160 mg PO DAILY 07/28/16 Review of Systems Unable to obtain ROS, reason: slurred speech Physical Exam Vital Signs: Vital Signs Temperature 97.1 F L 07/28/16 22:00 Pulse Rate 78 07/29/16 00:00 Respiratory Rate 26 H 07/29/16 00:00 Blood Pressure 123/69 07/29/16 00:00 O2 Sat by Pulse Oximetry (%) 97 07/28/16 19:30 Constitutional: Yes: Calm Eyes: Yes: EOM Intact HENT: Yes: Normocephalic Neck: Yes: Trachea Midline Cardiovascular: Yes: Regular Rate and Rhythm Respiratory: Yes: CTA Bilaterally Gastrointestinal: Yes: Normal Bowel Sounds ...Rectal Exam: Yes: Deferred Renal/: Yes: WNL Breast(s): Yes: WNL Musculoskeletal: Yes: WNL Extremities: Yes: Other (r upper and lower extremity weakness) Edema: No Peripheral Pulses WNL: Yes Neurological: Yes: Alert, Babinski positive, Numbness, Weakness Psychiatric: Yes: Alert Problem List - Problems (1) Acute ischemic left middle cerebral artery (MCA) stroke Code(s): I63.512 - CEREB INFRC D/T UNSP OCCLS OR STENOS OF LEFT MID CEREB ART (2) Aphasia complicating stroke Code(s): I63.9 - CEREBRAL INFARCTION, UNSPECIFIED R47.01 - APHASIA (3) Elevated blood pressure reading Code(s): R03.0 - ELEVATED BLOOD-PRESSURE READING, W/O DIAGNOSIS OF HTN (4) Hemiplegia affecting dominant side Code(s): G81.90 - HEMIPLEGIA, UNSPECIFIED AFFECTING UNSPECIFIED SIDE Assessment/Plan Current Active Problems Acute ischemic left middle cerebral artery (MCA) stroke (Acute) Aphasia complicating stroke (Acute) CAD (coronary artery disease) (Acute) Dyspnea on exertion (Acute) Elevated blood pressure reading (Acute) Hemiplegia affecting dominant side (Acute) Lower extremity edema (Acute) niddm insulin resistant/morbid obesity Abnormal Lab Results 07/28/16 08:00 Random Glucose 236 H D CK-MB (CK-2) 6.018 H B-Natriuretic Peptide 3390.58 H Total Protein 6.3 L Laboratory Results - last 24 hr 07/28/16 07/28/16 07/28/16 08:00 08:00 08:30 WBC 7.4 RBC 4.13 Hgb 12.5 Hct 37.5 MCV 90.8 MCHC 33.3 RDW 14.6 Plt Count 205 MPV 7.9 Neutrophils % 74.0 D Lymphocytes % 18.4 D Monocytes % 6.1 Eosinophils % 0.8 Basophils % 0.7 INR Sodium 136 Potassium 4.3 Chloride 100 Carbon Dioxide 26 Anion Gap 10 BUN 17 D Creatinine 1.2 D Creat Clearance w eGFR > 60 POC Glucometer Random Glucose 236 H D Calcium 8.5 Total Bilirubin 0.7 D AST 22 D ALT 44 D Alkaline Phosphatase 82 Creatine Kinase 287 Creatine Kinase Index 2.1 CK-MB (CK-2) 6.018 H CK-MB (CK-2) Rel Index Cancelled Troponin I < 0.02 B-Natriuretic Peptide 3390.58 H Total Protein 6.3 L Albumin 3.7 07/28/16 07/28/16 07/28/16 14:21 14:50 17:00 WBC RBC Hgb Hct MCV MCHC RDW Plt Count MPV Neutrophils % Lymphocytes % Monocytes % Eosinophils % Basophils % INR 1.06 Sodium Potassium Chloride Carbon Dioxide Anion Gap BUN Creatinine Creat Clearance w eGFR POC Glucometer 107 Random Glucose Calcium Total Bilirubin AST ALT Alkaline Phosphatase Creatine Kinase 229 D Creatine Kinase Index CK-MB (CK-2) CK-MB (CK-2) Rel Index Troponin I 0.02 B-Natriuretic Peptide Total Protein Albumin 07/28/16 07/28/16 07/28/16 17:00 20:30 20:30 WBC RBC Hgb Hct MCV MCHC RDW Plt Count MPV Neutrophils % Lymphocytes % Monocytes % Eosinophils % Basophils % INR Sodium Potassium Chloride Carbon Dioxide Anion Gap BUN Creatinine Creat Clearance w eGFR POC Glucometer Random Glucose Calcium Total Bilirubin AST ALT Alkaline Phosphatase Creatine Kinase 204 Creatine Kinase Index CK-MB (CK-2) CK-MB (CK-2) Rel Index Cancelled Cancelled Troponin I 0.02 B-Natriuretic Peptide Total Protein Albumin plan: check vma urine check serum aldosterone \tsh free t4 am/pm cortisol level
[2016-07-29] MEDS ORDERED: FUROSEMIDE INJECTION 100 MG in SODIUM CHLORIDE 90 ML IVPB SCH (03:00)
[2016-07-29] MEDS ORDERED: FUROSEMIDE 100 MG/10 ML INJECTABLE VIAL ONE (03:17)
[2016-07-29] MEDS ORDERED: HEMOQUE TEST 1 EACH EACH ONE (05:16)
[2016-07-29 05:48] LABS: BASOPHIL 0.6 % (0-2.0); EOSINOPHIL 0.4 % (0-4.5); MCH 29.8 pg (25.7-33.7); MCHC 33.4 g/dl (32.0-35.9); MEAN CELL VOLUME 89.4 fl (80-96); MEAN PLT VOLUME 7.9 fl (7.5-11.1); NEUTROPHILS 75.4 % (42.8-82.8); PLATELET COUNT 232 K/MM3 (134-434); RDW 15.1 % (11.9-15.9); WHITE BLOOD COUNT 8.8 K/mm3 (4.0-10.0)
[2016-07-29 06:00] LABS: INR 1.18 (0.82-1.09)
[2016-07-29 06:03] LABS: ACTIVATED PTT 25.9 SECONDS (26.9-34.4)
[2016-07-29 06:29] LABS: ALBUMIN 3.6 g/dl (3.4-5.0); ANION GAP 10 (8-16); CALCIUM 8.5 mg/dL (8.5-10.1); CO2 28 mmol/L (21-32); GLUCOSE,RANDOM 122 mg/dL (74-106); MAGNESIUM 2.2 mg/dL (1.8-2.4)
[2016-07-29 06:32] LABS: TROPONIN I 0.02 ng/ml (0.00-0.05)
[2016-07-29 06:34] LABS: ALK PHOS 65 U/L (45-117); BILIRUBIN,TOTAL 1.1 mg/dL (0.2-1.0); PHOSPHOROUS 3.1 mg/dL (2.5-4.9); SGOT/AST 16 U/L (15-37); SGPT/ALT 34 U/L (12-78); TOT PROT 6.2 g/dl (6.4-8.2)
[2016-07-29] MEDS: INSULIN SLIDING SCALE (NOVOLOG) 1 VIAL SQ SCH ×4 (07:10→21:28)
--- NOTE | 2016-07-29 07:58 | PN ---
Progress Note, Physician History of Present Illness: PT FEELS BETTER MOVING ALL EXTREMITIES FOLLOWING COMMAND EXPRESSIVE APHASIA - Current Medication List Current Medications: Active Medications Atorvastatin Calcium (Lipitor -) 80 mg PO HS BASIL Last Admin: 07/28/16 22:32 Dose: Not Given Chlorhexidine Gluconate (Hibiclens For Decolonization -) 1 applic TP HS BASIL Last Admin: 07/28/16 21:30 Dose: 1 applic Nicardipine HCl 25 mg/ (Dextrose) 250 mls @ 25 mls/hr IVPB TITR BASIL; 2.5 MG/HR PRN Reason: Protocol Last Admin: 07/28/16 16:45 Dose: 25 mls/hr Insulin Aspart (Novolog Vial Sliding Scale -) 1 vial SQ ACHS BASIL PRN Reason: Protocol Last Admin: 07/29/16 07:10 Dose: Not Given Mupirocin (Bactroban Ointment (For Decolonization) -) 1 applic NS BID BASIL Stop: 08/02/16 21:59 Last Admin: 07/28/16 22:40 Dose: 1 applic - Objective Vital Signs: Vital Signs Temperature 97.2 F L 07/29/16 02:00 Pulse Rate 86 07/29/16 07:20 Respiratory Rate 22 07/29/16 07:20 Blood Pressure 135/70 07/29/16 07:20 O2 Sat by Pulse Oximetry (%) 100 07/29/16 07:23 Cardiovascular: Yes: Regular Rate and Rhythm, Murmur Respiratory: Yes: Regular, CTA Bilaterally Gastrointestinal: Yes: Normal Bowel Sounds, Soft Edema: No Neurological: Yes: Alert, Aphasia (EXPRESSIVE) Labs: CBC, BMP 07/29/16 05:10 07/29/16 05:10 INR, PTT INR 1.18 (0.82-1.09) H 07/29/16 05:10 - ....Imaging Cat Scan: Report Reviewed MRI: Report Reviewed Problem List - Problems (1) Acute ischemic left middle cerebral artery (MCA) stroke Assessment/Plan: S/P TPA F/U CT Code(s): I63.512 - CEREB INFRC D/T UNSP OCCLS OR STENOS OF LEFT MID CEREB ART (2) Aphasia complicating stroke Assessment/Plan: ABOVE Code(s): I63.9 - CEREBRAL INFARCTION, UNSPECIFIED R47.01 - APHASIA (3) Dyspnea on exertion Assessment/Plan: S/P LASIX MONITOR ECHO NOTED--LV DYSFUNCTION Code(s): R06.09 - OTHER FORMS OF DYSPNEA (4) CAD (coronary artery disease) Assessment/Plan: FOLLOW CE Code(s): I25.10 - ATHSCL HEART DISEASE OF [place] CORONARY ARTERY W/O ANG PCTRS
--- NOTE | 2016-07-29 08:49 | PN ---
Physical Exam: SUBJECTIVE: Patient seen and examined in ICU. significant improvement in Right side strength 5/5, follows commands, answers questions with yes and no, answers when asked how you doing says "doing good", difficulty finding words. global aphasia improved to expressive aphasia able to hold pen with Right hand write name , location, but not year. AAox2. His of resent syncope episode 1 to 2 day ago, possible the sub acute occipital CVA, no clear history of visual symptoms. denies sob, cp,fevers, chills, DRAPER, neck stiffness, dizziness ,no blurred or double vision vision, N/V/D, no signs of bleeding. OBJECTIVE: Vital Signs Period Temp Pulse Resp BP Sys/Candelario Pulse Ox Last 24 Hr 97.1 F-98.9 F 75-86 16-26 120-142/47-70 96-100 GENERAL: The patient is awake, alert, and oriented to name and place not time, in no acute distress. Calm HEAD: Normal with no signs of trauma. EYES: PERRL, extraocular movements intact, sclera anicteric, conjunctiva clear. No ptosis. ENT: Ears normal, nares patent, oropharynx clear without exudates, moist mucous membranes. NECK: Trachea midline, full range of motion, supple. LUNGS: Breath sounds equal, clear to auscultation bilaterally, no wheezes, no crackles, no accessory muscle use. HEART: Regular rate and rhythm, S1, S2 without murmur, rub or gallop. ABDOMEN: Soft, nontender, nondistended, normoactive bowel sounds, no guarding, no rebound, no hepatosplenomegaly, no masses. EXTREMITIES: 2+ pulses, warm, well-perfused, +1 BL LE edema. NEUROLOGICAL: expressive Aphasia, Dysarthria, able to right with his name and place with right hand, some fine motor deficit in right hand, able to hold pen and right, right lower quadrian face weekness and droop, flat nasal labial folds gait not observed. Babinski negative SKIN: Warm, dry, normal turgor, no rashes or lesions noted Labs: Laboratory Results - last 24 hr 07/28/16 07/28/16 07/29/16 20:30 20:30 05:10 WBC 8.8 RBC 3.93 L Hgb 11.7 Hct 35.1 L MCV 89.4 MCHC 33.4 RDW 15.1 Plt Count 232 MPV 7.9 Neutrophils % 75.4 Lymphocytes % 16.3 Monocytes % 7.3 Eosinophils % 0.4 Basophils % 0.6 INR PTT (Actin FS) Sodium Potassium Chloride Carbon Dioxide Anion Gap BUN Creatinine Creat Clearance w eGFR POC Glucometer Random Glucose Calcium Phosphorus Magnesium Total Bilirubin AST ALT Alkaline Phosphatase Creatine Kinase 204 CK-MB (CK-2) Rel Index Cancelled Troponin I 0.02 B-Natriuretic Peptide Total Protein Albumin 07/29/16 07/29/16 07/29/16 05:10 05:10 05:10 WBC RBC Hgb Hct MCV MCHC RDW Plt Count MPV Neutrophils % Lymphocytes % Monocytes % Eosinophils % Basophils % INR 1.18 H PTT (Actin FS) 25.9 L Sodium 139 Potassium 4.3 Chloride 101 Carbon Dioxide 28 Anion Gap 10 BUN 14 Creatinine 1.0 Creat Clearance w eGFR > 60 POC Glucometer Random Glucose 122 H D Calcium 8.5 Phosphorus 3.1 Magnesium 2.2 Total Bilirubin 1.1 H D AST 16 D ALT 34 D Alkaline Phosphatase 65 D Creatine Kinase 197 CK-MB (CK-2) Rel Index Troponin I 0.02 B-Natriuretic Peptide 2179.37 H Total Protein 6.2 L Albumin 3.6 07/29/16 07/29/16 05:10 05:18 WBC RBC Hgb Hct MCV MCHC RDW Plt Count MPV Neutrophils % Lymphocytes % Monocytes % Eosinophils % Basophils % INR PTT (Actin FS) Sodium Potassium Chloride Carbon Dioxide Anion Gap BUN Creatinine Creat Clearance w eGFR POC Glucometer [id number] Random Glucose Calcium Phosphorus Magnesium Total Bilirubin AST ALT Alkaline Phosphatase Creatine Kinase CK-MB (CK-2) Rel Index Cancelled Troponin I B-Natriuretic Peptide Total Protein Albumin Active Medications Generic Name Dose Route Start Last Admin Trade Name Freq PRN Reason Stop Dose Admin Atorvastatin Calcium 80 mg 07/28/16 22:00 07/28/16 22:32 Lipitor - PO Not Given HS BASIL Chlorhexidine Gluconate 1 applic 07/28/16 22:00 07/28/16 21:30 Hibiclens For Decolonization - TP 1 applic HS BASIL Administration Nicardipine HCl 25 mg/ 250 mls @ 25 mls/hr 07/28/16 16:15 07/29/16 16:37 Dextrose IVPB 12.5 mls/hr TITR BASIL Administration Protocol 2.5 MG/HR Insulin Aspart 1 vial 07/28/16 22:00 07/29/16 11:35 Novolog Vial Sliding Scale - SQ Not Given ACHS BASIL Protocol Lorazepam 0.5 mg 07/29/16 16:51 07/29/16 16:57 Ativan Injection - IVPUSH 07/29/16 16:52 0.5 mg ONCE ONE Administration Losartan Potassium 25 mg 07/29/16 15:00 07/29/16 15:11 Cozaar - PO 25 mg DAILY BASIL Administration Metoprolol Succinate 25 mg 07/29/16 12:15 07/29/16 12:48 Toprol Xl - PO 25 mg DAILY BASIL Administration Mupirocin 1 applic 07/28/16 22:00 07/29/16 11:36 Bactroban Ointment (For Decolonization) - NS 08/02/16 21:59 1 applic BID BASIL Administration Chest X-ray: Report Reviewed, Image Reviewed (Cardiomegaly. Improvement of vascular congestion) MRI: Report Reviewed EKG: Report Reviewed, Image Reviewed Echocardiogram: Severely decreased LVEF (25-30%). Severe LVD with global hypokinesis. Mod RVD with moderately decreased RV function. Mod bi-atrial enlargement. Trace MRVicky) ASSESSMENT/PLAN: Mr. De Oliveira is a 60 y/o man w/ a Hx/o HTN, DMII, HL, and CAD who presents to the ED today c/o worsening exertional dyspnea X past 3 mos. Pt reports SOB w/ minimal walking. during stress test patient developed Hemiplegia and global aphasia found to have CVA two ischemic strokes on DWI/ADC. Given TPA within 45 minutes. CVA s/p TPA: Acute cute Hemiplegia affecting dominant side resolved, global aphasia resolving to Expressive Aphasia . -IV tpa given ~24 hours ago -NIHS is 15points today per neurology, -MRI brain: two ischemic strokes on DWI/ADC. -awaiting carotid Doppler -neuro check q2h -Blood pressure- keep systolic bp less than 180, diastolic less than 110 -Dysphagia -Speech and Swallow eval-done: no impairment- start home oral Medications - on MRI brain yesterday , done after tpa there is no bleed on GRE. Repeat Ct head at 5pm. - If repeat CT negative for bleed to be started on ASA 81mg and Plavix 75mg today, heparin 5, 000 units tid. - PT/ST/OT -VS check Q4H: any change in mental status, sudden onset DRAPER, focal neurlogical deficit will warrant emergent CT and neuro surgery consulted. Anxiety agitation with repeat repeat Ct 5pm - gave 0.5 mg lorazapam CAD (coronary artery disease) (Acute) -to have KIKO monday - he had two strokes in two vascular circulations -deferred to cardiology to manage his heart failure- EF 25% on echocardiogram , very high BNP -Speech and swallow eval-done: no impairment Dilated cardiomyopathy: Dyspnea on exertion, Acute Lower extremity edema: Unclear etiology. Possible related to chronic HTN. Unclear if ischemic vs. non- ischemic etiology secondary to CHF - Adequate perfusion. Improvement of volume status. -Severely decreased LVEF (25-30%). Severe LVD with global hypokinesis. Mod RVD with moderately decreased RV function. Mod bi-atrial enlargement. Trace MR. -resume home BB and [id number] -Awaiting LE Doppler to r/o dvt -Consider KIKO on Monday -Patient requires CV work up for iscehmic and non-ischemic etiologies once stable. -Continue cardiac monitoring. -Strick I & O. CAD History non-obstructive CAD in the past cardiac cath with no stenting two years ago. Negative cardiac markers x 4 will re start asa and plavix once repeat CT is negative for bleed at 5pm. DM: -hga1c 8.1 -ISS after 5pm HTN: -titrated down to stop Nicardipine GTT -Losartan Potassium 25 mg -Metoprolol Succinate 25 mg -Blood pressure- keep systolic bp less than 180, diastolic less than 110 Elevated blood pressure reading -Metoprolol Succinate 25 mg Hyperlipidemia: LDL 131- -cont atorvastatin 80 mg daily Carotid stenosis: CTA - Right ICA stenosis is 70%. Left ICA stenosis of 30%, Left frontal stroke. - R Cerebellum CVA supplied by posterior circulation no carotid. - Stoke probably came from heart, since left ICA stenosis is only 30% - to be started on ASA and [id number]. - today, statin 80mg po daily - No need for surgery per vascular surgery. -KIKO on Monday. DVT prophylaxis - start heparin sq. once repeat CT negative for bleed. Bed rest for now- PT/OT eval FEN- Speech and swallow eval-done: no impairment - Recommendations Diet Consistency: Dysphagia Whole Medication Administration: Crushed with applesauce (or place medication that can not be crushed in applesauce, followed by water.) Liquids: Thin Liquids Replete electrolytes as needed Dispo: continue ICU monitoring, KIKO Monday. Verbally and written communicated handoff to ICU resident and instructed to start Asa, plavix, heparin sq TIB if repeat CT Negative for bleed. Visit type - Emergency Visit Emergency Visit: Yes ED Registration Date: 07/28/16 Care time: The patient presented to the Emergency Department on the above date and was hospitalized for further evaluation of their emergent condition. - New Patient This patient is new to me today: Yes Date on this admission: 07/28/16 - Critical Care Critical Care patient: Yes Total Critical Care Time (in minutes): 47 Critical Care Statement: The care of this patient involved high complexity decision making to prevent further life threatening deterioration of the patient 's condition and/or to evalute & treat vital organ system(s) failure or risk of failure.
--- NOTE | 2016-07-29 09:54 | EKG ---
Test Reason : Blood Pressure : / mmHG Vent. Rate : 086 BPM Atrial Rate : 086 BPM P-R Int : 140 ms QRS Dur : 142 ms QT Int : 446 ms P-R-T Axes : 058 -75 057 degrees QTc Int : 533 ms NORMAL SINUS RHYTHM POSSIBLE LEFT ATRIAL ENLARGEMENT RIGHT BUNDLE BRANCH BLOCK LEFT ANTERIOR FASCICULAR BLOCK BIFASCICULAR BLOCK NONSPECIFIC ST ABNORMALITY Confirmed by LIZETTE GARCIA MD ([id number]) on 07/29/2016 9:53:34 AM Referred By: Confirmed By:LIZETTE GARCIA MD
--- NOTE | 2016-07-29 09:54 | CONSULT ---
Admitting History and Physical - Primary Care Physician PCP: Smooth Cisneros - Admission History of Present Illness: Per EMR: "Admission History of Present Illness: 60 yo male with pmh.of DM type 2, HTN, hyperlipidemia, CAD, on ASA daily, presented to ED for one month exertional dyspnea. He was talking and walking in ED this morning till 1.38pm. He was admitted for cardiac work up and sent to the stress cardiac lab. In the lab.stress test at 2.20pm. it was noticed then he is not talking anymore and he has right facial droop and righs side weakness. Code esposito- stroke code was activated at 2.20pm. in the cardiac stress lab." History Source: Medical Record Limitations to Obtaining History: Other (Severe expressive/Moderate (?) receptive Aphasia and Moderate oromotor Apraxia) - Past Medical History Cardiovascular: Yes: CAD (Mild non-obstructive CAD per reported cath 3 years ago ), HTN, Hyperlipdemia Endocrine: Yes: Diabetes Mellitus - Smoking History Smoking history: Never smoked - Alcohol/Substance Use Hx Alcohol Use: No History of Substance Use: reports: None - Social History ADL: Independent Occupation: [employer] History of Recent Travel: No History - Admission Reason For Visit: DYSPNEA ON EXERT,ELEVATED BP - Diagnostics X-ray: Report Reviewed CT Scan: Report Reviewed MRI: Report Reviewed (acute left nonhem frontal and acute/subacute right cereballar infact) - General Mental Status: Awake and Alert, Flat Affect (No frustration exhibited. Limited awareness of moderate to severe functional communication deficits.) Attention: Distractible, Mild Impairment Ability to Follow Directions: Poor (Follows 1 stage whole body commands occassionally. However, moderate to severe oromotor/limb apraxia adversely affects accuracy of response. eg unable to blow a candle, throw a kiss but understood it, using hand to "throw" from his mouth.) Head/Neck Control: WFL - Hearing Hearing: Normal Hearing Aide: No Speech Evaluation - Communication Primary Language: GEORGIAN Communication: Yes: Aphasia Oral Expression Ability: Yes: Severe Impairment - Speech Production Apraxia: Yes Able to Make Needs Known: Yes: Severely Impaired (occasional social, spontaneous responses eg "thats ok". Unable to respond to simple questions eg his name,occupation, object naming. Able to repeat simple words, and some social phrases. Can count in unison, and independently with cues.) Intelligibility: Yes: Mildly Impaired - Speech Characteristics Voice Loudness: Mildly Soft/Quiet Voice Pitch: Yes: Normal Voice Phonatory-based Quality: Yes: Normal Speech Pattern: Impaired Speech Clarity: < 25% Nasal Resonance: Normal - Language/Auditory Comprehension Observation: Able to respond to yes/no queries: No, Yes/No Confusion: Yes ( INCONNSISTENT AND UNRELIABLE 50% accuracy), Comprehends Conversational Speech: Yes (simple social speech), Benefits from Slow Speech: Yes (keep sentences short ), Benefits from Repetiton: Yes, Benefits from Increased Volume of Speech: Yes - Language/Verbal Expression Aphasia: Yes: Fluent, Anomia, Apraxia Able to Respond to Simple Queries: Yes: Moderately Impaired, Severely Impaired Able to Communicate Wants and Needs: Yes: Moderately Impaired, Severely Impaired Functional Communication Status: Yes: Moderately Impaired, Severely Impaired Aware of Errors: No Attempts to Correct Errors: No - Swallow Evaluation/Bedside Assessment Current Nutritional Intake: NPO Oral Secretions: Yes: WFL Dentition: Yes: Adequate Facial Symmetry at Rest: Symmetrical Facial Symmetry on Retraction: Facial Droop Right Against Resistance Opening: Normal Against Resistance Closing: Normal Pucker Lips: Normal (not weak but unable due to apraxia) Smile: Normal (not weak but unable due to apraxia) Lingual Movement: Symmetric, Other (apraxia) Lingual Speed of Movement: Normal Lingual Movement Strgth Against Opposition: Normal Lingual Movement Characteristics: Normal Velopharyngeal Movement: Normal Laryngeal Elevation: WFL Laryngeal Movement: Labored,delay initiation (intermittently) Rate of Intake: Impulsive (potential. also potential limb apraxia with difficulty with self feeding although UE strong.Supervise with solids.) Labial Seal: WFL Chewing: Impaired (mild dyscoordination) Oral Prep Time: Increased Timing of Swallow: Delayed Coughing/Throat Clear: No Change in Voice: No Recommendations - Speech Evaluation, Impression/Plan Impression: Severe expressive/Moderate (?) receptive Aphasia and Moderate oromotor Apraxia. Excellent prognosis for improvement. Potential oral dyscoordination with masytication, which should continue to improve. - [facility]position [facility] (Excellent candidate for intensive speech therapy) - Dysphagia Impressions/Plan Dysphagia Impressions: Mild Impairment *Silent aspiration: cannot be R/O at bedside Dysphagia Treatment Plan: Clear Pocket Food, 1/2 tsp. at a time, Elevate HOB during feed, OOB for 1 h. after meals Recommendations: Other (assist with meals.) - Recommendations Diet Consistency: Dysphagia Whole Medication Administration: Crushed with applesauce (or place medication that can not be crushed in applesauce, followed by water.) Liquids: Thin Liquids
--- NOTE | 2016-07-29 10:50 | PN ---
Progress Note, Physician Chief Complaint: Dilate CMP - HF Acute ischemic stroke History of Present Illness: 60 yo male with DM type 2, HTN, hyperlipidemia, and reported mild CAD (No record available), who presents to ED with 1 month history of exertional dyspnea. Mild pulmonary congestion and elevated BMP. Stress test was recommended. However patient had neurological symptoms during initial part of the test c/w acute stroke. Code was activated s/p tPA. Patient admitted to ICU due to acute left frontal cortical stroke s/p tPA with clinical improvement. No overnight events. Hemodynamically stable. Today with Severe apraxia and aphasia. Telemetry: NSR. No events. - Current Medication List Current Medications: Active Medications Atorvastatin Calcium (Lipitor -) 80 mg PO HS BASIL Last Admin: 07/28/16 22:32 Dose: Not Given Chlorhexidine Gluconate (Hibiclens For Decolonization -) 1 applic TP HS BASIL Last Admin: 07/28/16 21:30 Dose: 1 applic Nicardipine HCl 25 mg/ (Dextrose) 250 mls @ 25 mls/hr IVPB TITR BASIL; 2.5 MG/HR PRN Reason: Protocol Last Admin: 07/28/16 16:45 Dose: 25 mls/hr Insulin Aspart (Novolog Vial Sliding Scale -) 1 vial SQ ACHS BASIL PRN Reason: Protocol Last Admin: 07/29/16 07:10 Dose: Not Given Mupirocin (Bactroban Ointment (For Decolonization) -) 1 applic NS BID BASIL Stop: 08/02/16 21:59 Last Admin: 07/28/16 22:40 Dose: 1 applic - Objective Vital Signs: Vital Signs Temperature 98.3 F 07/29/16 10:08 Pulse Rate 90 07/29/16 10:08 Respiratory Rate 22 07/29/16 10:08 Blood Pressure 147/75 07/29/16 10:08 O2 Sat by Pulse Oximetry (%) 100 07/29/16 07:23 Constitutional: Yes: Well Nourished, No Distress, Calm Neck: Yes: Supple Cardiovascular: Yes: Regular Rate and Rhythm (Normal S1-S2). No: JVD, Gallop, Murmur, S3, S4 Respiratory: Yes: WNL, CTA Bilaterally Gastrointestinal: Yes: WNL, Normal Bowel Sounds Extremities: Yes: WNL (Warm extremities.) Edema: Yes (Bilateral LE edema 1+) Neurological: Yes: Aphasia Labs: CBC, BMP 07/29/16 05:10 07/29/16 05:10 INR, PTT INR 1.18 (0.82-1.09) H 07/29/16 05:10 - ....Imaging Chest X-ray: Report Reviewed, Image Reviewed (Cardiomegaly. Improvement of vascular congestion) MRI: Report Reviewed EKG: Report Reviewed, Image Reviewed Other: Other (Echocardiogram report reviwed. Severely decreased LVEF (25-30%). Severe LVD with global hypokinesis. Mod RVD with moderately decreased RV function. Mod bi-atrial enlargement. Trace MR.) Problem List - Problems (1) Acute ischemic left middle cerebral artery (MCA) stroke Code(s): I63.512 - CEREB INFRC D/T UNSP OCCLS OR STENOS OF LEFT MID CEREB ART (2) CAD (coronary artery disease) Code(s): I25.10 - ATHSCL HEART DISEASE OF [place] CORONARY ARTERY W/O ANG PCTRS (3) Dyspnea on exertion Code(s): R06.09 - OTHER FORMS OF DYSPNEA (4) Dilated cardiomyopathy Code(s): I42.0 - DILATED CARDIOMYOPATHY Assessment/Plan 60 yo male with DM type 2, HTN, hyperlipidemia, and reported mild CAD (No record available) admitted due to ICU after acute CVA (Frontal, cerebellar) Acute Stroke Continue ICU care. Please follow Neurology recommendations. On Nicardipine drip. Please consider switching it to Labetalol drip for BP control if no able to take po medications. KIKO on Monday for evaluation of embolic source. Please keep patient NPO after Monday Midnight. Dilated CMP. Unclear etiology. Possible related to chronic HTN. Unclear if ischemic vs. non- ischemic etiology Adequate perfusion. Improvement of volume status. Patient was on Beta-blockers (Metoprolol succinate) and ARBs at home. Please reassume them once clinical status and acute neurological event allow it. Recommend gentle diuresis for volume control. Patient requires CV work up for ischemic and non-ischemic etiologies once stable. Continue cardiac monitoring. Please keep lytes within the normal limits. Strick I & O. CAD Possible non-obstructive CAD in the past. Negative cardiac markers. Restart antiplatelet therapy once Neurology agrees. Ischemic evaluation deferred for now (due to acute CVA) Please get old medical records (Cath report, prior ECGs, echos) Will follow with you. Thank you
[2016-07-29] MEDS: MUPIROCIN 2% TOPICAL OINTMENT FOR DECOLONIZATION NS SCH ×2 (11:36→21:28)
[2016-07-29] MEDS: METOPROLOL SUCCINATE 25 MG TAB.SR.24H (FP) PO SCH (12:48)
[2016-07-29 13:13] LABS: CHOLESTEROL 173 mg/dL (50-200); LDL CHOLESTEROL (ONLY SJRH) 131 mg/dL (5-100)
--- NOTE | 2016-07-29 15:04 | PN ---
[id number], presented to ED for one month exertional dyspnea. He was talking and walking in ED this morning till 1.38pm. He was admitted for cardiac work up and sent to the stress cardiac lab. In the lab.stress test at 2.20pm. it was noticed then he is not talking anymore and he has right facial droop and righs side weakness. Code esposito- stroke code was activated at 2.20pm. in the cardiac stress lab. LSN at 1.38pm. in ED. Examined the patient in ED at 3.00pm. CT head done , was negative for intracranial bleed. The was consulted over the phone and obtain consent for ivtpa. bolus iv.tpa at 3.21pm. NIHS was 20 points: 2p.not answers questions, 2p. not following commands, 1p left gaze deviation, 1p.RCFP, 3p. RUE, 2p RLE, 1p right sensory loss, 2p. severe aphasia, 2p . severe dysarthria, 1p. extinction - right side neglect. - Current Medication List Current Medications: Active Medications Atorvastatin Calcium (Lipitor -) 80 mg PO HS [facility] Last Admin: 07/28/16 22:32 Dose: Not Given Chlorhexidine Gluconate (Hibiclens For Decolonization -) 1 applic TP HS [facility] Last Admin: 07/28/16 21:30 Dose: 1 applic Nicardipine HCl 25 mg/ (Dextrose) 250 mls @ 25 mls/hr IVPB TITR [facility]; 2.5 MG/HR PRN Reason: Protocol Last Titration: 07/29/16 11:33 Dose: 1.25 mg/hr Insulin Aspart (Novolog Vial Sliding Scale -) 1 vial SQ ACHS [facility] PRN Reason: Protocol Last Admin: 07/29/16 11:35 Dose: Not Given Losartan Potassium (Cozaar -) 25 mg PO DAILY [facility] Metoprolol Succinate (Toprol Xl -) 25 mg PO DAILY [facility] Last Admin: 07/29/16 12:48 Dose: 25 mg Mupirocin (Bactroban Ointment (For Decolonization) -) 1 applic NS BID [facility] Stop: 08/02/16 21:59 Last Admin: 07/29/16 11:36 Dose: 1 applic - Objective Vital Signs: Vital Signs Temperature 98.3 F 07/29/16 10:08 Pulse Rate 78 07/29/16 13:58 Respiratory Rate 18 07/29/16 13:58 Blood Pressure 134/70 07/29/16 13:58 O2 Sat by Pulse Oximetry (%) 100 07/29/16 07:23 Constitutional: Yes: No Distress, Calm Eyes: Yes: Conjunctiva Clear, EOM Intact HENT: Yes: Atraumatic, Normocephalic Neck: Yes: Supple, Trachea Midline Cardiovascular: Yes: Regular Rate and Rhythm, S1, S2 Respiratory: Yes: Regular, CTA Bilaterally Gastrointestinal: Yes: Normal Bowel Sounds, Soft Genitourinary: Yes: WNL Breast(s): Yes: WNL Edema: Yes Edema: LLE: 1+, RLE: 1+ Peripheral Pulses WNL: Yes Peripheral Pulses: Left Radial: 1+, Right Radial: 1+ Neurological: Yes: Alert, Aphasia, Babinski negative, Dysarthria, Loss of Sensation, Unsteady Gait, Weakness (RUE drift, RLE drift, apraxia. global aphasia, " yes" , "tove' , " tove" right side hemineglect, + dysarthria, follow one step commands intermittent,) Labs: CBC, BMP 07/29/16 05:10 07/29/16 05:10 INR, PTT INR 1.18 (0.82-1.09) H 07/29/16 05:10 - ....Imaging Ultrasound: Report Reviewed, Image Reviewed MRI: Report Reviewed, Image Reviewed Other: Report Reviewed, Image Reviewed Problem List - Problems (1) Acute ischemic left middle cerebral artery (MCA) stroke Code(s): I63.512 - CEREB INFRC D/T UNSP OCCLS OR STENOS OF LEFT MID CEREB ART (2) Aphasia complicating stroke Code(s): I63.9 - CEREBRAL INFARCTION, UNSPECIFIED R47.01 - APHASIA (3) Hemiplegia affecting dominant side Code(s): G81.90 - HEMIPLEGIA, UNSPECIFIED AFFECTING UNSPECIFIED SIDE (4) Carotid stenosis, bilateral Code(s): I65.23 - OCCLUSION AND STENOSIS OF BILATERAL CAROTID ARTERIES (5) Carotid stenosis, symptomatic, with infarction Code(s): I63.239 - CEREB INFRC DUE TO UNSP OCCLS OR STENOS OF UNSP CAROTID ART (6) Carotid artery stenosis Code(s): I65.29 - OCCLUSION AND STENOSIS OF UNSPECIFIED CAROTID ARTERY Qualifiers: Laterality: bilateral Qualified Code(s): I65.23 - Occlusion and stenosis of bilateral carotid arteries Assessment/Plan 60 yo male with pmh.of DM type 2, HTN, hyperlipidemia, CAD, on ASA daily, presented to ED for one month exertional dyspnea. He was talking and walking in ED this morning till 1.38pm. He was admitted for cardiac work up and sent to the stress cardiac lab. In the lab.stress test at 2.20pm. it was noticed then he is not talking anymore and he has right facial droop and righs side weakness. Code esposito- stroke code was activated at 2.20pm. in the cardiac stress lab. LSN at 1.38pm. in ED. Examined the patient in ED at 3.00pm. CT head done , was negative for intracranial bleed. The was consulted over the phone and obtain consent for ivtpa. bolus iv.tpa at 3.21pm. NIHS is 15points today, the right side weakness improved, still severe global aphasia, apraxia.: 2p.not answers questions, 1p. not follows one command, 1p.RCFP, 3p., 2p RLE weakness , 1p right sensory loss, 2p. severe aphasia, 2p . severe dysarthria, 1p. extinction - right side neglect. MRI brain: two ischemic strokes on DWI/ADC : left frontal temporal and another one right cerebellar , which seems a little older than the left one. CTA head and neck shows 70% VEE stenosis and 30% LICA stenosis. The family remembers today that two days ago the patient had a syncopal event, which could be the right cerebellar ctroke as on T2 FLAIR the cerebellar stroke seems older than the left frontal. Plan: - patient received ivtpa in the hospital. - maintain SBP 100-130mmHG. - labetolol drip. - dysphagia - speech and swallow consult appreciated - to be started on ASA and [id number]. today, statin 80mg. po daily - no need for another CT head today- on MRI brain yesterday , done after tpa there is no bleed on GRE. - tappered down the drip cardene: restart home medication the betablockers, furosemid and valsartan. - deferred to cardiology to manage his heart failure- EF 25% on echocardiogram, very high BNP - to have KIKO monday - he had two strokes in two vascular circulations - vascular consult for his bilateral carotid stenosis. - PT/ST/OT - DVT prophylaxis - start heparin sq. - stroke work up : MRI brain, echocardiogram, doppler carotids, lipids profile, HbA1C thank you for this consult. Will follow Critical Care Time Spent in ICU 40min.
[2016-07-29] MEDS: LOSARTAN POTASSIUM 25 MG TABLET PO SCH (15:11)
--- NOTE | 2016-07-29 15:45 | PN ---
Teaching Attending Note Name of Resident: Ana Barrios ATTENDING PHYSICIAN STATEMENT I saw and evaluated the patient. I reviewed the resident's note and discussed the case with the resident. I agree with the resident's findings and plan as documented. SUBJECTIVE: Patient seen and examined in the ICU. Awake and responsive. Some expressive aphasia. Intake & Output 07/26/16 07/27/16 07/28/16 07/29/16 23:59 23:59 23:59 23:59 Intake Total 125 175 Balance 125 175 Weight 601 lb 13.791 oz 257 lb 2 oz Last Vital Signs Temp Pulse Resp BP Pulse Ox 98.8 F 84 20 151/75 100 07/29/16 15:00 07/29/16 15:00 07/29/16 15:00 07/29/16 15:00 07/29/16 07:23 Active Medications Atorvastatin Calcium (Lipitor -) 80 mg PO HS [facility] Last Admin: 07/28/16 22:32 Dose: Not Given Chlorhexidine Gluconate (Hibiclens For Decolonization -) 1 applic TP HS [facility] Last Admin: 07/28/16 21:30 Dose: 1 applic Nicardipine HCl 25 mg/ (Dextrose) 250 mls @ 25 mls/hr IVPB TITR [facility]; 2.5 MG/HR PRN Reason: Protocol Last Titration: 07/29/16 11:33 Dose: 1.25 mg/hr Insulin Aspart (Novolog Vial Sliding Scale -) 1 vial SQ ACHS [facility] PRN Reason: Protocol Last Admin: 07/29/16 11:35 Dose: Not Given Losartan Potassium (Cozaar -) 25 mg PO DAILY [facility] Last Admin: 07/29/16 15:11 Dose: 25 mg Metoprolol Succinate (Toprol Xl -) 25 mg PO DAILY [facility] Last Admin: 07/29/16 12:48 Dose: 25 mg Mupirocin (Bactroban Ointment (For Decolonization) -) 1 applic NS BID [facility] Stop: 08/02/16 21:59 Last Admin: 07/29/16 11:36 Dose: 1 applic Constitutional: Yes: Well Nourished, No Distress, Calm Eyes: Yes: WNL, Conjunctiva Clear, EOM Intact HENT: Yes: WNL, Atraumatic, Normocephalic Neck: Yes: WNL, Supple, Trachea Midline Cardiovascular: Yes: WNL, Regular Rate and Rhythm, Murmur Respiratory: Yes: WNL, Clear Gastrointestinal: Yes: WNL, Normal Bowel Sounds, Soft, Abdomen, Obese ...Rectal Exam: Yes: Deferred Renal/: Yes: WNL Breast(s): Yes: WNL Musculoskeletal: Yes: WNL Extremities: Yes: WNL Edema: No Peripheral Pulses WNL: Yes ...Motor Strength: WNL Psychiatric: Yes: WNL, Alert Labs: Laboratory Results - last 24 hr 07/28/16 07/28/16 07/28/16 17:00 17:00 20:30 WBC RBC Hgb Hct MCV MCHC RDW Plt Count MPV Neutrophils % Lymphocytes % Monocytes % Eosinophils % Basophils % INR PTT (Actin FS) Sodium Potassium Chloride Carbon Dioxide Anion Gap BUN Creatinine Creat Clearance w eGFR POC Glucometer Random Glucose Hemoglobin A1c % Calcium Phosphorus Magnesium Total Bilirubin AST ALT Alkaline Phosphatase Creatine Kinase 229 D 204 Creatine Kinase Index CK-MB (CK-2) CK-MB (CK-2) Rel Index Cancelled Troponin I 0.02 0.02 B-Natriuretic Peptide Total Protein Albumin Triglycerides Cholesterol Total LDL Cholesterol HDL Cholesterol 07/28/16 07/29/16 07/29/16 20:30 05:10 05:10 WBC 8.8 RBC 3.93 L Hgb 11.7 Hct 35.1 L MCV 89.4 MCHC 33.4 RDW 15.1 Plt Count 232 MPV 7.9 Neutrophils % 75.4 Lymphocytes % 16.3 Monocytes % 7.3 Eosinophils % 0.4 Basophils % 0.6 INR 1.18 H PTT (Actin FS) 25.9 L Sodium Potassium Chloride Carbon Dioxide Anion Gap BUN Creatinine Creat Clearance w eGFR POC Glucometer Random Glucose Hemoglobin A1c % Calcium Phosphorus Magnesium Total Bilirubin AST ALT Alkaline Phosphatase Creatine Kinase Creatine Kinase Index CK-MB (CK-2) CK-MB (CK-2) Rel Index Cancelled Troponin I B-Natriuretic Peptide Total Protein Albumin Triglycerides Cholesterol Total LDL Cholesterol HDL Cholesterol 07/29/16 07/29/16 07/29/16 05:10 05:10 05:10 WBC RBC Hgb Hct MCV MCHC RDW Plt Count MPV Neutrophils % Lymphocytes % Monocytes % Eosinophils % Basophils % INR PTT (Actin FS) Sodium 139 Potassium 4.3 Chloride 101 Carbon Dioxide 28 Anion Gap 10 BUN 14 Creatinine 1.0 Creat Clearance w eGFR > 60 POC Glucometer Random Glucose 122 H D Hemoglobin A1c % 8.1 H Calcium 8.5 Phosphorus 3.1 Magnesium 2.2 Total Bilirubin 1.1 H D AST 16 D ALT 34 D Alkaline Phosphatase 65 D Creatine Kinase 197 Creatine Kinase Index 0.7 CK-MB (CK-2) 1.4 CK-MB (CK-2) Rel Index Troponin I 0.02 B-Natriuretic Peptide 2179.37 H Total Protein 6.2 L Albumin 3.6 Triglycerides 114 Cholesterol 173 Total LDL Cholesterol 131 H D HDL Cholesterol 44 D 07/29/16 07/29/16 07/29/16 05:10 05:15 05:18 WBC RBC Hgb Hct MCV MCHC RDW Plt Count MPV Neutrophils % Lymphocytes % Monocytes % Eosinophils % Basophils % INR PTT (Actin FS) Sodium Potassium Chloride Carbon Dioxide Anion Gap BUN Creatinine Creat Clearance w eGFR POC Glucometer [id number] Random Glucose Hemoglobin A1c % Calcium Phosphorus Magnesium Total Bilirubin AST ALT Alkaline Phosphatase Creatine Kinase Creatine Kinase Index CK-MB (CK-2) CK-MB (CK-2) Rel Index Cancelled Troponin I B-Natriuretic Peptide Total Protein Albumin Triglycerides Cancelled Cholesterol Cancelled Total LDL Cholesterol Cancelled HDL Cholesterol Cancelled Problem List - Problems (1) Acute ischemic left middle cerebral artery (MCA) stroke Code(s): I63.512 - CEREB INFRC D/T UNSP OCCLS OR STENOS OF LEFT MID CEREB ART (2) Aphasia complicating stroke Code(s): I63.9 - CEREBRAL INFARCTION, UNSPECIFIED R47.01 - APHASIA (3) CAD (coronary artery disease) Code(s): I25.10 - ATHSCL HEART DISEASE OF [place] CORONARY ARTERY W/O ANG PCTRS (4) Elevated blood pressure reading Code(s): R03.0 - ELEVATED BLOOD-PRESSURE READING, W/O DIAGNOSIS OF HTN (5) Hyperlipidemia Code(s): E78.5 - HYPERLIPIDEMIA, UNSPECIFIED (6) Diabetes Code(s): E11.9 - TYPE 2 DIABETES MELLITUS WITHOUT COMPLICATIONS Assessment/Plan Acute non-hemorrhagic CVA S/P TPA Aspiration precautions O2 as needed Titrate BP meds Vascular evaluation for MRA/CTA Lipid Profile Cardiology evaluation noted Lipitor ICU monitoring Dr Bonilla CCTime 35"
[2016-07-29] MEDS: NICARDIPINE 25 MG in DEXTROSE 5%-WATER - 240 ML IVPB SCH (16:37)
--- NOTE | 2016-07-29 16:39 | PN ---
Progress Note (short form) - Note Progress Note: Vascular Surgery Pt seen and examined. Left frontal stroke. CTA reviewed -- Right ICA stenosis is 70%. Left ICA stenosis of 30% Medical management. No need for surgery. Stoke probably came from heart, since left ICA stenosis is only 30% Son Galicia DO
[2016-07-29] MEDS ORDERED: LORAZEPAM CARPU-JECT 2 MG/ML DISP.SYRIN IVPUSH ONE ×2 (16:51)
[2016-07-29] MEDS: CLOPIDOGREL BISULFATE 75 MG TABLET (FP) PO SCH (18:54)
[2016-07-29] MEDS: ASPIRIN 81 MG CHEWABLE TABLETS PO SCH (18:54)
[2016-07-29] MEDS: ALTEPLASE 50 MG VIAL IVPB ONE ×2 (19:47)
[2016-07-29] MEDS ORDERED: HEPARIN NA (PORCINE) 5,000 UNITS/ML 1ML VIAL ONE (20:59)
[2016-07-29 21:20] LABS: MCH 30.1 pg (25.7-33.7); MCHC 33.8 g/dl (32.0-35.9); MEAN CELL VOLUME 89.2 fl (80-96); MEAN PLT VOLUME 7.6 fl (7.5-11.1); PLATELET COUNT 211 K/MM3 (134-434); WHITE BLOOD COUNT 8.2 K/mm3 (4.0-10.0)
[2016-07-29] MEDS: CHLORHEXIDINE GLUCONATE 4% CLEANSER FOR DECOLONIZATION TP SCH (21:28)
[2016-07-29] MEDS: ATORVASTATIN CA 80 MG TABLET (FP) PO SCH (21:28)
[2016-07-29] MEDS: HEPARIN NA (PORCINE) 5,000 UNITS/ML 1ML VIAL SQ SCH (21:28)
[2016-07-30] MEDS: HEPARIN NA (PORCINE) 5,000 UNITS/ML 1ML VIAL SQ SCH ×3 (05:02→21:04)
[2016-07-30] MEDS ORDERED: HEMOQUE TEST 1 EACH EACH ONE (05:13)
[2016-07-30] MEDS: INSULIN SLIDING SCALE (NOVOLOG) 1 VIAL SQ SCH ×4 (06:13→22:34)
[2016-07-30 06:29] LABS: THYROID STIMULATING HORMONE 0.72 uIU/ml (0.358-3.74)
[2016-07-30 07:43] LABS: FREE T4 1.23 ng/dl (0.76-1.16)
[2016-07-30 08:31] LABS: ALBUMIN 3.7 g/dl (3.4-5.0); ANION GAP 11 (8-16); CALCIUM 8.3 mg/dL (8.5-10.1); CO2 24 mmol/L (21-32); GLUCOSE,RANDOM 104 mg/dL (74-106)
[2016-07-30 08:35] LABS: ALK PHOS 66 U/L (45-117); BILIRUBIN,TOTAL 1.2 mg/dL (0.2-1.0); SGOT/AST 21 U/L (15-37); SGPT/ALT 32 U/L (12-78); TOT PROT 6.5 g/dl (6.4-8.2)
[2016-07-30 08:38] LABS: MCH 29.6 pg (25.7-33.7); MCHC 32.9 g/dl (32.0-35.9); MEAN CELL VOLUME 90.1 fl (80-96); MEAN PLT VOLUME 7.8 fl (7.5-11.1); PLATELET COUNT 217 K/MM3 (134-434); RDW 15.1 % (11.9-15.9); WHITE BLOOD COUNT 9.1 K/mm3 (4.0-10.0)
--- NOTE | 2016-07-30 09:59 | PN ---
Progress Note (short form) - Note Progress Note: SUBJECTIVE: Patient seen and examined in the ICU. Awake and responsive, mild confusion overnight developed L flank bruising but H/h stable asa and plavix started as per cards, ok per Neuro Aspirin (Asa -) 81 mg PO DAILY [facility] Last Admin: 07/29/16 18:54 Dose: 81 mg Atorvastatin Calcium (Lipitor -) 80 mg PO HS [facility] Last Admin: 07/29/16 21:28 Dose: 80 mg Chlorhexidine Gluconate (Hibiclens For Decolonization -) 1 applic TP HS [facility] Last Admin: 07/29/16 21:28 Dose: 1 applic Clopidogrel Bisulfate (Plavix -) 75 mg PO DAILY [facility] Last Admin: 07/29/16 18:54 Dose: 75 mg Heparin Sodium (Porcine) (Heparin -) 5,000 unit SQ TID [facility] Last Admin: 07/30/16 05:02 Dose: 5,000 unit Nicardipine HCl 25 mg/ (Dextrose) 250 mls @ 25 mls/hr IVPB TITR [facility]; 2.5 MG/HR PRN Reason: Protocol Last Admin: 07/29/16 16:37 Dose: 12.5 mls/hr Insulin Aspart (Novolog Vial Sliding Scale -) 1 vial SQ ACHS [facility] PRN Reason: Protocol Last Admin: 07/30/16 06:13 Dose: Not Given Losartan Potassium (Cozaar -) 25 mg PO DAILY [facility] Last Admin: 07/29/16 15:11 Dose: 25 mg Metoprolol Succinate (Toprol Xl -) 25 mg PO DAILY [facility] Last Admin: 07/29/16 12:48 Dose: 25 mg Mupirocin (Bactroban Ointment (For Decolonization) -) 1 applic NS BID [facility] Stop: 08/02/16 21:59 Last Admin: 07/29/16 21:28 Dose: 1 applic Vital Signs Temp 99.3 F 07/30/16 06:00 Pulse 86 07/30/16 08:40 Resp 20 07/30/16 08:00 BP 136/77 07/30/16 08:00 Pulse Ox 99 07/30/16 08:40 Intake & Output 07/29/16 07/29/16 07/30/16 11:59 23:59 11:59 Intake Total 175 62.5 87.5 Balance 175 62.5 87.5 Weight 116.63 kg 116.715 kg Intake: IV 175 62.5 87.5 Cardene - 25 mg In D5w - 175 62.5 87.5 240 ml @ 2.5 MG/HR 25 mls /hr IVPB TITR [facility] Rx#: [id number] Other: Voiding Method Diaper Diaper # Unmeasured Voids Void 2 1 3 Weight Measurement Method Built in [facility] Built in [facility] Constitutional: Yes: Well Nourished, No Distress, Calm Eyes: Yes: WNL, Conjunctiva Clear, EOM Intact HENT: Yes: WNL, Atraumatic, Normocephalic Neck: Yes: WNL, Supple, Trachea Midline Cardiovascular: Yes: WNL, Regular Rate and Rhythm, Murmur Respiratory: Yes: WNL, Clear Gastrointestinal: Yes: WNL, Normal Bowel Sounds, Soft, Abdomen, Obese ...Rectal Exam: Yes: Deferred Renal/: Yes: WNL Breast(s): Yes: WNL Musculoskeletal: Yes: WNL Extremities: Yes: WNL Edema: No Peripheral Pulses WNL: Yes ...Motor Strength: WNL, non focal, equal strength, no drift Psychiatric: Yes: WNL, Alert Labs: CBC, BMP 07/30/16 05:30 07/30/16 05:30 Problem List - Problems (1) Acute ischemic left middle cerebral artery (MCA) stroke Code(s): I63.512 - CEREB INFRC D/T UNSP OCCLS OR STENOS OF LEFT MID CEREB ART (2) Aphasia complicating stroke Code(s): I63.9 - CEREBRAL INFARCTION, UNSPECIFIED R47.01 - APHASIA (3) CAD (coronary artery disease) Code(s): I25.10 - ATHSCL HEART DISEASE OF [place] CORONARY ARTERY W/O ANG PCTRS (4) Elevated blood pressure reading Code(s): R03.0 - ELEVATED BLOOD-PRESSURE READING, W/O DIAGNOSIS OF HTN (5) Hyperlipidemia Code(s): E78.5 - HYPERLIPIDEMIA, UNSPECIFIED (6) Diabetes Code(s): E11.9 - TYPE 2 DIABETES MELLITUS WITHOUT COMPLICATIONS Assessment/Plan Acute non-hemorrhagic CVA S/P TPA Aspiration precautions O2 as needed Titrate BP meds Seen by vascular, no indication for endovascular intervention for carotids Lipid Profile Cardiology following, asa and plavix started Lipitor ok for floor -stat reimaging for AMS Nikhil Putnam ACNP [id number]
[2016-07-30] MEDS: ASPIRIN 81 MG CHEWABLE TABLETS PO SCH (10:00)
[2016-07-30] MEDS: LOSARTAN POTASSIUM 25 MG TABLET PO SCH (10:00)
[2016-07-30] MEDS: METOPROLOL SUCCINATE 25 MG TAB.SR.24H (FP) PO SCH (10:00)
[2016-07-30] MEDS: MUPIROCIN 2% TOPICAL OINTMENT FOR DECOLONIZATION NS SCH ×2 (10:00→21:05)
[2016-07-30] MEDS: CLOPIDOGREL BISULFATE 75 MG TABLET (FP) PO SCH (10:00)
--- NOTE | 2016-07-30 11:55 | PN ---
Progress Note, Physician History of Present Illness: No new complaints. Better at bedside - Current Medication List Current Medications: Active Medications Aspirin (Asa -) 81 mg PO DAILY [facility] Last Admin: 07/29/16 18:54 Dose: 81 mg Atorvastatin Calcium (Lipitor -) 80 mg PO HS [facility] Last Admin: 07/29/16 21:28 Dose: 80 mg Chlorhexidine Gluconate (Hibiclens For Decolonization -) 1 applic TP HS [facility] Last Admin: 07/29/16 21:28 Dose: 1 applic Clopidogrel Bisulfate (Plavix -) 75 mg PO DAILY [facility] Last Admin: 07/29/16 18:54 Dose: 75 mg Heparin Sodium (Porcine) (Heparin -) 5,000 unit SQ TID [facility] Last Admin: 07/30/16 05:02 Dose: 5,000 unit Nicardipine HCl 25 mg/ (Dextrose) 250 mls @ 25 mls/hr IVPB TITR [facility]; 2.5 MG/HR PRN Reason: Protocol Last Admin: 07/29/16 16:37 Dose: 12.5 mls/hr Insulin Aspart (Novolog Vial Sliding Scale -) 1 vial SQ ACHS [facility] PRN Reason: Protocol Last Admin: 07/30/16 06:13 Dose: Not Given Losartan Potassium (Cozaar -) 25 mg PO DAILY [facility] Last Admin: 07/29/16 15:11 Dose: 25 mg Metoprolol Succinate (Toprol Xl -) 25 mg PO DAILY [facility] Last Admin: 07/29/16 12:48 Dose: 25 mg Mupirocin (Bactroban Ointment (For Decolonization) -) 1 applic NS BID [facility] Stop: 08/02/16 21:59 Last Admin: 07/29/16 21:28 Dose: 1 applic - Objective Vital Signs: Vital Signs Temperature 99.3 F 07/30/16 06:00 Pulse Rate 86 07/30/16 08:40 Respiratory Rate 20 07/30/16 08:00 Blood Pressure 136/77 07/30/16 08:00 O2 Sat by Pulse Oximetry (%) 99 07/30/16 08:40 Constitutional: Yes: No Distress Eyes: Yes: Conjunctiva Clear HENT: Yes: Atraumatic Neck: Yes: Supple Cardiovascular: Yes: Regular Rate and Rhythm Respiratory: No: Rales, Wheezes Gastrointestinal: Yes: Normal Bowel Sounds, Soft, Abdomen, Obese Edema: No Peripheral Pulses WNL: Yes Neurological: Yes: Alert, Oriented Psychiatric: Yes: Alert, Oriented Labs: CBC, BMP 07/30/16 05:30 07/30/16 05:30 INR, PTT INR 1.18 (0.82-1.09) H 07/29/16 05:10 - ....Imaging Other: Other (tele -. SR) Assessment/Plan 60 yo male with DM type 2, HTN, hyperlipidemia, and reported mild CAD (No record available) admitted due to ICU after acute CVA (Frontal, cerebellar) Acute Stroke Continue ICU care. Please follow Neurology recommendations. On Nicardipine drip. Please consider switching it to Labetalol drip for BP control if no able to take po medications. KIKO on Monday for evaluation of embolic source. Please keep patient NPO after Monday Midnight. Dilated CMP. Unclear etiology. Possible related to chronic HTN. Unclear if ischemic vs. non- ischemic etiology Possible non-obstructive CAD in the past. Negative cardiac markers. Ischemic evaluation deferred for now (due to acute CVA) HD stable today Back on BB Seebn by vascular -. no surgical intervention for the carotid dz Rec: Same management Cont torprol and cozaar -. titrate prn Titrate nicardipine drip to off Per neuro/IM KIKO on Monday
[2016-07-30] MEDS: NICARDIPINE 25 MG in DEXTROSE 5%-WATER - 240 ML IVPB SCH (13:00)
--- NOTE | 2016-07-30 14:02 | PN ---
Progress Note, Physician Chief Complaint: CALM NO COMPLAINTS FAMILY & HOSP STAFF PRESENT - Current Medication List Current Medications: Active Medications Aspirin (Asa -) 81 mg PO DAILY [facility] Last Admin: 07/29/16 18:54 Dose: 81 mg Atorvastatin Calcium (Lipitor -) 80 mg PO HS [facility] Last Admin: 07/29/16 21:28 Dose: 80 mg Chlorhexidine Gluconate (Hibiclens For Decolonization -) 1 applic TP HS [facility] Last Admin: 07/29/16 21:28 Dose: 1 applic Clopidogrel Bisulfate (Plavix -) 75 mg PO DAILY [facility] Last Admin: 07/29/16 18:54 Dose: 75 mg Heparin Sodium (Porcine) (Heparin -) 5,000 unit SQ TID [facility] Last Admin: 07/30/16 05:02 Dose: 5,000 unit Nicardipine HCl 25 mg/ (Dextrose) 250 mls @ 25 mls/hr IVPB TITR [facility]; 2.5 MG/HR PRN Reason: Protocol Last Admin: 07/29/16 16:37 Dose: 12.5 mls/hr Insulin Aspart (Novolog Vial Sliding Scale -) 1 vial SQ ACHS [facility] PRN Reason: Protocol Last Admin: 07/30/16 06:13 Dose: Not Given Losartan Potassium (Cozaar -) 25 mg PO DAILY [facility] Last Admin: 07/29/16 15:11 Dose: 25 mg Metoprolol Succinate (Toprol Xl -) 25 mg PO DAILY [facility] Last Admin: 07/29/16 12:48 Dose: 25 mg Mupirocin (Bactroban Ointment (For Decolonization) -) 1 applic NS BID [facility] Stop: 08/02/16 21:59 Last Admin: 07/29/16 21:28 Dose: 1 applic - Objective Vital Signs: Vital Signs Temperature 99.3 F 07/30/16 06:00 Pulse Rate 86 07/30/16 08:40 Respiratory Rate 20 07/30/16 08:00 Blood Pressure 136/77 07/30/16 08:00 O2 Sat by Pulse Oximetry (%) 97 07/30/16 09:00 Constitutional: Yes: Calm Neck: Yes: WNL Cardiovascular: Yes: WNL Respiratory: Yes: WNL Gastrointestinal: Yes: WNL Edema: No Labs: CBC, BMP 07/30/16 05:30 07/30/16 05:30 INR, PTT INR 1.18 (0.82-1.09) H 07/29/16 05:10 Problem List - Problems (1) Acute ischemic left middle cerebral artery (MCA) stroke Code(s): I63.512 - CEREB INFRC D/T UNSP OCCLS OR STENOS OF LEFT MID CEREB ART (2) CAD (coronary artery disease) Code(s): I25.10 - ATHSCL HEART DISEASE OF [place] CORONARY ARTERY W/O ANG PCTRS (3) Diabetes Code(s): E11.9 - TYPE 2 DIABETES MELLITUS WITHOUT COMPLICATIONS Assessment/Plan (1) Acute ischemic left middle cerebral artery (MCA) stroke Assessment/Plan: S/P TPA F/U CT Code(s): I63.512 - CEREB INFRC D/T UNSP OCCLS OR STENOS OF LEFT MID CEREB ART (2) Aphasia complicating stroke Assessment/Plan: ABOVE Code(s): I63.9 - CEREBRAL INFARCTION, UNSPECIFIED R47.01 - APHASIA (3) Dyspnea on exertion Assessment/Plan: S/P LASIX MONITOR ECHO NOTED--LV DYSFUNCTION Code(s): R06.09 - OTHER FORMS OF DYSPNEA (4) CAD (coronary artery disease) Assessment/Plan: FOLLOW CE -> NEG Code(s): I25.10 - ATHSCL HEART DISEASE OF [place] CORONARY ARTERY W/O ANG PCTRS TRANSFER TO [facility]? PASTOR [place]AUDHARY
--- NOTE | 2016-07-30 19:40 | PN ---
Progress Note (short form) - Note Progress Note: NEUROLOGY COVERAGE FOLLOW-UP: Events reviewed and discussed with Dr. Ortiz. This 60 yo RH, m, man with a plethora of cardiovascular risk factors had cardiac cath 3 years ago. Came to ER on with SOB. Echocardiogram showed severe Left ventriclar hypokinesis with EF approx 30%. During persantin stress test he developed Right sided weakness, facial droop and speech dysfunction. Given t-PA in ED. Now on plavix and ASA MRI of brain (reviewed): New Left frontotemporal CVA (cortical infarct) and right cerebellar infarct (age indeterminate). Carotid duplex/carotid MRA: Mod (70%) right and mild (30%) left carotid stenosis. Family feels speecha nd strength are much better today. EXAM: Follows most commands. Non-fluent aphasia with severe impairment of repetitions and naming. Mild Right facial. Gag OK. Full ta to threat Mild Right drift with slight decreased MARISELA's. Leg strength normal. Toes downgoing. IMP: S/P t-PA for Left frontal CVA Still with Broca's-type (nonfluent) aphasia. Radiographic appearance of both strokes suggests embolism. SUGGEST: The degree of ventricular hypo/ dyskinesis may well be the embolic source, even in the absence of paroxysmal AFib. Continue telemetry for arrhythmia. Consider anticoagulation for (multiple) cardiogenic emboli. Thank you very much, Norbert Grover MD
[2016-07-30] MEDS: ATORVASTATIN CA 80 MG TABLET (FP) PO SCH (21:04)
[2016-07-30] MEDS: CHLORHEXIDINE GLUCONATE 4% CLEANSER FOR DECOLONIZATION TP SCH (21:05)
[2016-07-31] MEDS: HEPARIN NA (PORCINE) 5,000 UNITS/ML 1ML VIAL SQ SCH ×3 (05:30→21:13)
[2016-07-31] MEDS: INSULIN SLIDING SCALE (NOVOLOG) 1 VIAL SQ SCH ×4 (06:01→21:33)
[2016-07-31 06:16] LABS: BASOPHIL 0.7 % (0-2.0); EOSINOPHIL 0.9 % (0-4.5); MCH 30.5 pg (25.7-33.7); MCHC 33.9 g/dl (32.0-35.9); NEUTROPHILS 70.9 % (42.8-82.8); PLATELET COUNT 260 K/MM3 (134-434); RDW 14.9 % (11.9-15.9); WHITE BLOOD COUNT 9.9 K/mm3 (4.0-10.0)
[2016-07-31 06:45] LABS: ALBUMIN 3.5 g/dl (3.4-5.0); ALK PHOS 64 U/L (45-117); ANION GAP 11 (8-16); BILIRUBIN,TOTAL 1.2 mg/dL (0.2-1.0); CALCIUM 8.4 mg/dL (8.5-10.1); CO2 27 mmol/L (21-32); GLUCOSE,RANDOM 131 mg/dL (74-106); SGOT/AST 16 U/L (15-37); SGPT/ALT 27 U/L (12-78); TOT PROT 6.4 g/dl (6.4-8.2)
--- NOTE | 2016-07-31 08:21 | PN ---
Progress Note (short form) - Note Progress Note: Seen and examined in the ICU Mental status better, still with slurred speech OOB to chair, able to stand Cont on CCB gtt Denies: DRAPER/n/blurry vision/parasthesia Current Medications Aspirin (Asa -) 81 mg PO DAILY [facility] Last Admin: 07/30/16 10:00 Dose: 81 mg Atorvastatin Calcium (Lipitor -) 80 mg PO HS [facility] Last Admin: 07/30/16 21:04 Dose: 80 mg Chlorhexidine Gluconate (Hibiclens For Decolonization -) 1 applic TP HS [facility] Last Admin: 07/30/16 21:05 Dose: 1 applic Clopidogrel Bisulfate (Plavix -) 75 mg PO DAILY [facility] Last Admin: 07/30/16 10:00 Dose: 75 mg Heparin Sodium (Porcine) (Heparin -) 5,000 unit SQ TID [facility] Last Admin: 07/31/16 05:30 Dose: 5,000 unit Nicardipine HCl 25 mg/ (Dextrose) 250 mls @ 25 mls/hr IVPB TITR [facility]; 2.5 MG/HR PRN Reason: Protocol Last Admin: 07/30/16 13:00 Dose: 14 mls/hr Insulin Aspart (Novolog Vial Sliding Scale -) 1 vial SQ ACHS [facility] PRN Reason: Protocol Last Admin: 07/31/16 06:01 Dose: Not Given Losartan Potassium (Cozaar -) 50 mg PO DAILY [facility] Metoprolol Succinate (Toprol Xl -) 50 mg PO DAILY [facility] Mupirocin (Bactroban Ointment (For Decolonization) -) 1 applic NS BID [facility] Stop: 08/02/16 21:59 Last Admin: 07/30/16 21:05 Dose: 1 applic Exam: General: awake, alert, cooperative HEENT: PERRL CV: NSR Pulm: CTA Ext: WWP, no edema Neuro: AOx3, CORDERO 5/5, right facial drop stable CBCD WBC 9.9 K/mm3 (4.0-10.0) 07/31/16 05:20 RBC 4.11 M/mm3 (4.00-5.60) 07/31/16 05:20 Hgb 12.5 GM/dL (11.7-16.9) 07/31/16 05:20 Hct 36.9 % (35.4-49) 07/31/16 05:20 MCV 90.0 fl (80-96) 07/31/16 05:20 MCHC 33.9 g/dl (32.0-35.9) 07/31/16 05:20 RDW 14.9 % (11.9-15.9) 07/31/16 05:20 Plt Count 260 K/MM3 (134-434) 07/31/16 05:20 MPV 8.0 fl (7.5-11.1) 07/31/16 05:20 CMP Sodium 138 mmol/L (136-145) 07/31/16 05:20 Potassium 4.6 mmol/L (3.5-5.1) 07/31/16 05:20 Chloride 100 mmol/L (98-107) 07/31/16 05:20 Carbon Dioxide 27 mmol/L (21-32) 07/31/16 05:20 Anion Gap 11 (8-16) 07/31/16 05:20 BUN 19 mg/dL (7-18) H D 07/31/16 05:20 Creatinine 1.0 mg/dL (0.7-1.3) 07/31/16 05:20 Creat Clearance w eGFR > 60 (>60) 07/31/16 05:20 Random Glucose 131 mg/dL (74-106) H D 07/31/16 05:20 Calcium 8.4 mg/dL (8.5-10.1) L 07/31/16 05:20 Total Bilirubin 1.2 mg/dL (0.2-1.0) H 07/31/16 05:20 AST 16 U/L (15-37) D 07/31/16 05:20 ALT 27 U/L (12-78) 07/31/16 05:20 Alkaline Phosphatase 64 U/L (45-117) 07/31/16 05:20 Total Protein 6.4 g/dl (6.4-8.2) 07/31/16 05:20 Albumin 3.5 g/dl (3.4-5.0) 07/31/16 05:20 CARDIAC ENZYMES Creatine Kinase 197 IU/L (39-308) 07/29/16 05:10 Troponin I 0.02 ng/ml (0.00-0.05) 07/29/16 05:10 Problem List - Problems (1) Acute ischemic left middle cerebral artery (MCA) stroke Code(s): I63.512 - CEREB INFRC D/T UNSP OCCLS OR STENOS OF LEFT MID CEREB ART (2) Aphasia complicating stroke Code(s): I63.9 - CEREBRAL INFARCTION, UNSPECIFIED R47.01 - APHASIA (3) CAD (coronary artery disease) Code(s): I25.10 - ATHSCL HEART DISEASE OF [place] CORONARY ARTERY W/O ANG PCTRS (4) Elevated blood pressure reading Code(s): R03.0 - ELEVATED BLOOD-PRESSURE READING, W/O DIAGNOSIS OF HTN (5) Hyperlipidemia Code(s): E78.5 - HYPERLIPIDEMIA, UNSPECIFIED (6) Diabetes Code(s): E11.9 - TYPE 2 DIABETES MELLITUS WITHOUT COMPLICATIONS Assessment/Plan Acute non-hemorrhagic CVA S/P TPA Aspiration precautions O2 as needed, currently on RA Incentive spirometer Early PT/OT Titrate BP meds up today will goal of coming off CCB gtt Seen by vascular, no indication for endovascular intervention for carotids Cardiology following, asa and plavix plan for KIKO monday consider heparin drip per neurology, must confirm with cardiology prior to starting Lipitor -stat reimaging for AMS DVT prophylaxis ok for floor once off CCB gtt Bert ACNP Pulm/CCM CCT: 35m
[2016-07-31] MEDS: METOPROLOL SUCCINATE 50 MG TAB.SR.24H (FP) PO SCH ×2 (08:34→10:24)
[2016-07-31] MEDS: LOSARTAN POTASSIUM 50 MG TABLET (FP) PO SCH ×2 (08:34→10:24)
[2016-07-31] MEDS: MUPIROCIN 2% TOPICAL OINTMENT FOR DECOLONIZATION NS SCH ×2 (10:24→21:13)
[2016-07-31] MEDS: ASPIRIN 81 MG CHEWABLE TABLETS PO SCH (10:24)
[2016-07-31] MEDS: CLOPIDOGREL BISULFATE 75 MG TABLET (FP) PO SCH (10:24)
--- NOTE | 2016-07-31 11:21 | PN ---
Progress Note, Physician History of Present Illness: no new complaints - Current Medication List Current Medications: Active Medications Aspirin (Asa -) 81 mg PO DAILY [facility] Last Admin: 07/31/16 10:24 Dose: 81 mg Atorvastatin Calcium (Lipitor -) 80 mg PO HS [facility] Last Admin: 07/30/16 21:04 Dose: 80 mg Chlorhexidine Gluconate (Hibiclens For Decolonization -) 1 applic TP HS [facility] Last Admin: 07/30/16 21:05 Dose: 1 applic Clopidogrel Bisulfate (Plavix -) 75 mg PO DAILY [facility] Last Admin: 07/31/16 10:24 Dose: 75 mg Heparin Sodium (Porcine) (Heparin -) 5,000 unit SQ TID [facility] Last Admin: 07/31/16 05:30 Dose: 5,000 unit Hydralazine HCl (Apresoline Injection -) 10 mg IVPUSH Q8H [facility] Nicardipine HCl 25 mg/ (Dextrose) 250 mls @ 25 mls/hr IVPB TITR [facility]; 2.5 MG/HR PRN Reason: Protocol Last Admin: 07/30/16 13:00 Dose: 14 mls/hr Insulin Aspart (Novolog Vial Sliding Scale -) 1 vial SQ ACHS [facility] PRN Reason: Protocol Last Admin: 07/31/16 06:01 Dose: Not Given Losartan Potassium (Cozaar -) 50 mg PO DAILY [facility] Last Admin: 07/31/16 10:24 Dose: Not Given Losartan Potassium (Cozaar -) 50 mg PO ONCE ONE Stop: 07/31/16 11:18 Metoprolol Succinate (Toprol Xl -) 50 mg PO DAILY [facility] Last Admin: 07/31/16 10:24 Dose: Not Given Mupirocin (Bactroban Ointment (For Decolonization) -) 1 applic NS BID [facility] Stop: 08/02/16 21:59 Last Admin: 07/31/16 10:24 Dose: 1 applic - Objective Vital Signs: Vital Signs Temperature 97.9 F 07/31/16 05:51 Pulse Rate 89 07/31/16 05:51 Respiratory Rate 22 07/31/16 05:51 Blood Pressure 143/76 07/31/16 05:51 O2 Sat by Pulse Oximetry (%) 100 07/30/16 21:00 Constitutional: Yes: No Distress Eyes: Yes: Conjunctiva Clear HENT: Yes: Atraumatic Cardiovascular: Yes: Regular Rate and Rhythm Respiratory: Yes: CTA Bilaterally Gastrointestinal: Yes: Normal Bowel Sounds, Soft, Abdomen, Obese Edema: No Peripheral Pulses WNL: Yes Neurological: Yes: Alert, Oriented Psychiatric: Yes: Alert, Oriented Labs: CBC, BMP 07/31/16 05:20 07/31/16 05:20 INR, PTT INR 1.18 (0.82-1.09) H 07/29/16 05:10 - ....Imaging Other: Other (tele -. sr) Assessment/Plan 60 yo male with DM type 2, HTN, hyperlipidemia, and reported mild CAD (No record available) admitted due to ICU after acute CVA (Frontal, cerebellar) Acute Stroke Continue ICU care. Please follow Neurology recommendations. On Nicardipine drip. Please consider switching it to Labetalol drip for BP control if no able to take po medications. KIKO on Monday for evaluation of embolic source. Please keep patient NPO after Monday Midnight. Dilated CMP. Unclear etiology. Possible related to chronic HTN. Unclear if ischemic vs. non- ischemic etiology Possible non-obstructive CAD in the past. Negative cardiac markers. Ischemic evaluation deferred for now (due to acute CVA) HD stable =. IV cardene being tapered to off AM cozaar and toprol increased -. still on drip though lower Seen by vascular -. no surgical intervention for the carotid dz Rec: Give cozaar 50 now -. take drip off Cont toprol at 50 Increase cozaar to 100 in AM Per neuro/IM KIKO on Monday -. NPO migdalia D/W ALICIA
[2016-07-31] MEDS ORDERED: LOSARTAN POTASSIUM 50 MG TABLET (FP) PO ONE (11:30)
[2016-07-31] MEDS ORDERED: INSULIN (NOVOLOG) ASPART 100 UNITS/ML 10ML VIAL ONE (12:00)
--- NOTE | 2016-07-31 12:43 | PN ---
Progress Note, Physician Chief Complaint: HAD D/W PATIENT & FAMILY PATIENT ANXIOUS TO BE TRANSFERRED OUT OF ICU SPEECH IMPROVED - Current Medication List Current Medications: Active Medications Aspirin (Asa -) 81 mg PO DAILY [facility] Last Admin: 07/31/16 10:24 Dose: 81 mg Atorvastatin Calcium (Lipitor -) 80 mg PO HS [facility]S [facility] Last Admin: 07/30/16 21:04 Dose: 80 mg Chlorhexidine Gluconate (Hibiclens For Decolonization -) 1 applic TP HS [facility] Last Admin: 07/30/16 21:05 Dose: 1 applic Clopidogrel Bisulfate (Plavix -) 75 mg PO DAILY [facility] Last Admin: 07/31/16 10:24 Dose: 75 mg Heparin Sodium (Porcine) (Heparin -) 5,000 unit SQ TID [facility] Last Admin: 07/31/16 05:30 Dose: 5,000 unit Hydralazine HCl (Apresoline Injection -) 10 mg IVPUSH TID [facility] 234 [facility]S AT [facility] Nicardipine HCl 25 mg/ (Dextrose) 250 mls @ 25 mls/hr IVPB TITR [facility]; 2.5 MG/HR PRN Reason: Protocol Last Admin: 07/30/16 13:00 Dose: 14 mls/hr Insulin Aspart (Novolog Vial Sliding Scale -) 1 vial SQ ACHS [facility] 234 [facility]S AT [facility] PRN Reason: Protocol Last Admin: 07/31/16 06:01 Dose: Not Given Losartan Potassium (Cozaar -) 100 mg PO DAILY [facility] 234 [facility]S AT [facility] Metoprolol Succinate (Toprol Xl -) 50 mg PO DAILY [facility] Last Admin: 07/31/16 10:24 Dose: Not Given Mupirocin (Bactroban Ointment (For Decolonization) -) 1 applic NS BID [facility]S [facility] Stop: 08/02/16 21:59 Last Admin: 07/31/16 10:24 Dose: 1 applic - Objective Vital Signs: Vital Signs Temperature 98.8 F 07/31/16 12:00 Pulse Rate 86 07/31/16 12:05 Respiratory Rate 24 07/31/16 12:00 Blood Pressure 136/71 07/31/16 12:00 O2 Sat by Pulse Oximetry (%) 98 07/31/16 12:05 Constitutional: Yes: Calm Neck: Yes: WNL Cardiovascular: Yes: WNL Respiratory: Yes: WNL Gastrointestinal: Yes: WNL Edema: No Labs: CBC, BMP 07/31/16 05:20 07/31/16 05:20 INR, PTT INR 1.18 (0.82-1.09) H 07/29/16 05:10 Problem List - Problems (1) Acute ischemic left middle cerebral artery (MCA) stroke Code(s): I63.512 - CEREB INFRC D/T UNSP OCCLS OR STENOS OF LEFT MID CEREB ART (2) CAD (coronary artery disease) Code(s): I25.10 - ATHSCL HEART DISEASE OF [place] CORONARY ARTERY W/O ANG PCTRS (3) Diabetes Code(s): E11.9 - TYPE 2 DIABETES MELLITUS WITHOUT COMPLICATIONS Assessment/Plan (1) Acute ischemic left middle cerebral artery (MCA) stroke Assessment/Plan: S/P TPA F/U CT FOR KIKO IV BP Rx DAPT Code(s): I63.512 - CEREB INFRC D/T UNSP OCCLS OR STENOS OF LEFT MID CEREB ART (2) Aphasia complicating stroke Assessment/Plan: ABOVE Code(s): I63.9 - CEREBRAL INFARCTION, UNSPECIFIED R47.01 - APHASIA (3) Dyspnea on exertion Assessment/Plan: S/P LASIX MONITOR ECHO NOTED--LV DYSFUNCTION Code(s): R06.09 - OTHER FORMS OF DYSPNEA (4) CAD (coronary artery disease) Assessment/Plan: FOLLOW CE -> NEG Code(s): I25.10 - ATHSCL HEART DISEASE OF [place] CORONARY ARTERY W/O ANG PCTRS TRANSFER TO [facility]? PASTOR CHAUDHARY
[2016-07-31] MEDS: hydrALAZINE HCL 20 MG/ML VIAL IVPUSH SCH ×3 (13:05→21:13)
[2016-07-31] MEDS: NICARDIPINE 25 MG in DEXTROSE 5%-WATER - 240 ML IVPB SCH (20:00)
[2016-07-31] MEDS: ATORVASTATIN CA 80 MG TABLET (FP) PO SCH (21:13)
[2016-07-31] MEDS: CHLORHEXIDINE GLUCONATE 4% CLEANSER FOR DECOLONIZATION TP SCH (21:13)
--- NOTE | 2016-07-31 22:37 | EKG ---
Test Reason : Blood Pressure : / mmHG Vent. Rate : 112 BPM Atrial Rate : 112 BPM P-R Int : 152 ms QRS Dur : 144 ms QT Int : 388 ms P-R-T Axes : 070 -72 061 degrees QTc Int : 529 ms SINUS TACHYCARDIA WITH FUSION COMPLEXES POSSIBLE LEFT ATRIAL ENLARGEMENT RIGHT BUNDLE BRANCH BLOCK LEFT ANTERIOR FASCICULAR BLOCK BIFASCICULAR BLOCK ABNORMAL ECG WHEN COMPARED WITH ECG OF 28-JUL-2016 07:43, FUSION COMPLEXES ARE NOW PRESENT RIGHT BUNDLE BRANCH BLOCK IS NOW PRESENT Confirmed by DANAE PENA MD ([id number]) on 07/31/2016 10:37:01 PM Referred By: Confirmed By:DANAE PENA MD
[2016-08-01] MEDS: hydrALAZINE HCL 20 MG/ML VIAL IVPUSH SCH ×3 (05:58→22:35)
[2016-08-01] MEDS: HEPARIN NA (PORCINE) 5,000 UNITS/ML 1ML VIAL SQ SCH ×3 (05:58→22:40)
[2016-08-01 06:03] LABS: BASOPHIL 0.6 % (0-2.0); EOSINOPHIL 0.4 % (0-4.5); MCH 30.3 pg (25.7-33.7); MEAN PLT VOLUME 7.6 fl (7.5-11.1); NEUTROPHILS 76.3 % (42.8-82.8); PLATELET COUNT 268 K/MM3 (134-434); WHITE BLOOD COUNT 14.1 K/mm3 (4.0-10.0)
[2016-08-01 06:31] LABS: ALBUMIN 3.4 g/dl (3.4-5.0); ANION GAP 10 (8-16); CALCIUM 8.6 mg/dL (8.5-10.1); CO2 26 mmol/L (21-32); GLUCOSE,RANDOM 171 mg/dL (74-106); MAGNESIUM 2.3 mg/dL (1.8-2.4); PHOSPHOROUS 3.4 mg/dL (2.5-4.9); SGOT/AST 14 U/L (15-37)
[2016-08-01 06:33] LABS: ALK PHOS 65 U/L (45-117); BILIRUBIN,TOTAL 1.8 mg/dL (0.2-1.0); CREATININE 1.1 mg/dL (0.7-1.3); SGPT/ALT 27 U/L (12-78); TOT PROT 6.4 g/dl (6.4-8.2)
[2016-08-01] MEDS: INSULIN SLIDING SCALE (NOVOLOG) 1 VIAL SQ SCH ×4 (07:12→22:39)
--- NOTE | 2016-08-01 07:36 | PN ---
Progress Note, Physician History of Present Illness: PT FEELS BETTER MOVING ALL EXTREMITIES FOLLOWING COMMAND EXPRESSIVE APHASIA--MUCH IMPROVED - Current Medication List Current Medications: Active Medications Aspirin (Asa -) 81 mg PO DAILY [facility] Last Admin: 07/31/16 10:24 Dose: 81 mg Atorvastatin Calcium (Lipitor -) 80 mg PO HS [facility] Last Admin: 07/31/16 21:13 Dose: 80 mg Chlorhexidine Gluconate (Hibiclens For Decolonization -) 1 applic TP HS [facility] Last Admin: 07/31/16 21:13 Dose: 1 applic Clopidogrel Bisulfate (Plavix -) 75 mg PO DAILY [facility] Last Admin: 07/31/16 10:24 Dose: 75 mg Heparin Sodium (Porcine) (Heparin -) 5,000 unit SQ TID [facility] Last Admin: 08/01/16 05:58 Dose: 5,000 unit Hydralazine HCl (Apresoline Injection -) 10 mg IVPUSH TID [facility] Last Admin: 08/01/16 05:58 Dose: Not Given Nicardipine HCl 25 mg/ (Dextrose) 250 mls @ 25 mls/hr IVPB TITR [facility]; 2.5 MG/HR PRN Reason: Protocol Last Admin: 07/31/16 20:00 Dose: Not Given Insulin Aspart (Novolog Vial Sliding Scale -) 1 vial SQ ACHS [facility] PRN Reason: Protocol Last Admin: 08/01/16 07:12 Dose: Not Given Losartan Potassium (Cozaar -) 100 mg PO DAILY [facility] Metoprolol Succinate (Toprol Xl -) 50 mg PO DAILY [facility] Last Admin: 07/31/16 10:24 Dose: Not Given Mupirocin (Bactroban Ointment (For Decolonization) -) 1 applic NS BID [facility] Stop: 08/02/16 21:59 Last Admin: 07/31/16 21:13 Dose: 1 applic - Objective Vital Signs: Vital Signs Temperature 98.4 F 08/01/16 06:00 Pulse Rate 90 08/01/16 06:00 Respiratory Rate 20 08/01/16 06:00 Blood Pressure 121/74 08/01/16 06:00 O2 Sat by Pulse Oximetry (%) 97 07/31/16 20:06 Cardiovascular: Yes: Regular Rate and Rhythm Respiratory: Yes: Regular, CTA Bilaterally Gastrointestinal: Yes: Normal Bowel Sounds, Soft Neurological: Yes: Alert, Oriented, Dysarthria Labs: CBC, BMP 08/01/16 05:05 08/01/16 05:05 INR, PTT INR 1.18 (0.82-1.09) H 07/29/16 05:10 Problem List - Problems (1) Acute ischemic left middle cerebral artery (MCA) stroke Assessment/Plan: S/P TPA F/U CT IMPROVING PT EVAL KIKO TO ASSES FOR EMBOLI SOURCE Code(s): I63.512 - CEREB INFRC D/T UNSP OCCLS OR STENOS OF LEFT MID CEREB ART (2) Aphasia complicating stroke Assessment/Plan: ABOVE IMPROVING Code(s): I63.9 - CEREBRAL INFARCTION, UNSPECIFIED R47.01 - APHASIA (3) Dyspnea on exertion Assessment/Plan: S/P LASIX MONITOR ECHO NOTED--LV DYSFUNCTION Code(s): R06.09 - OTHER FORMS OF DYSPNEA (4) CAD (coronary artery disease) Assessment/Plan: FOLLOW CE Code(s): I25.10 - ATHSCL HEART DISEASE OF [place] CORONARY ARTERY W/O ANG PCTRS
--- NOTE | 2016-08-01 09:08 | PN ---
Addendum entered and electronically signed by Mara Barriosmariah, LUIS 08/01/16 16:13 : Given patients overall picture with low EF, patient may benefit from Ruben-I and Spirolactone. Original Note: Physical Exam: SUBJECTIVE: Patient seen and examined in ICU sitting up in chair. patient reports feeling well. No current complaints. expressive aphasia improving, trouble finding names/words, much more flaunt and longer sentences. still mild Right lower facial droop. right hand fine motor strength improving, gross motor strength resolved. Denies CP, SOB, N/V/D, fevers, chills, DRAPER, dizziness, no new focal neurological weakness. For KIKO today. OBJECTIVE: Vital Signs Period Temp Pulse Resp BP Sys/Candelario Pulse Ox Last 24 Hr 98.2 F-99.2 F 82-94 13- 119-141/66-79 97-98 GENERAL: The patient is awake, alert, and oriented to name and place not time, in no acute distress. Calm HEAD: Normal with no signs of trauma. EYES: PERRL, extraocular movements intact, sclera anicteric, conjunctiva clear. No ptosis. horizontal nestagmus ENT: Ears normal, nares patent, oropharynx clear without exudates, moist mucous membranes. NECK: Trachea midline, full range of motion, supple. LUNGS: Breath sounds equal, clear to auscultation bilaterally, no wheezes, no crackles, no accessory muscle use. HEART: Regular rate and rhythm, S1, S2 without murmur, rub or gallop. ABDOMEN: Soft, nontender, nondistended, normoactive bowel sounds, no guarding, no rebound, no hepatosplenomegaly, no masses. EXTREMITIES: 2+ pulses, warm, well-perfused, +1 BL LE edema. NEUROLOGICAL: expressive Aphasia much improved, words have expanded, more fluant , difficulty finding names. able to right with his name and place with right hand, some fine motor deficit in right hand, able to hold pen and right improved , right lower quadrian face weekness and droop, flat nasal labial folds gait not observed. Babinski negative. SKIN: Warm, dry, normal turgor, no rashes or lesions noted Laboratory Results - last 24 hr 07/31/16 07/31/16 07/31/16 05:10 11:34 16:56 WBC RBC Hgb Hct MCV MCHC RDW Plt Count MPV Neutrophils % Lymphocytes % Monocytes % Eosinophils % Basophils % Sodium Potassium Chloride Carbon Dioxide Anion Gap BUN Creatinine Creat Clearance w eGFR POC Glucometer [phone] 162.49736 Random Glucose Calcium Phosphorus Magnesium Total Bilirubin AST ALT Alkaline Phosphatase Total Protein Albumin 07/31/16 08/01/16 08/01/16 21:32 05:05 05:05 WBC 14.1 H D RBC 4.00 Hgb 12.1 Hct 35.6 MCV 89.0 MCHC 34.0 RDW 15.0 Plt Count 268 MPV 7.6 Neutrophils % 76.3 Lymphocytes % 14.5 D Monocytes % 8.2 Eosinophils % 0.4 Basophils % 0.6 Sodium 136 Potassium 4.6 Chloride 100 Carbon Dioxide 26 Anion Gap 10 BUN 27 H D Creatinine 1.1 Creat Clearance w eGFR > 60 POC Glucometer [phone] Random Glucose 171 H D Calcium 8.6 Phosphorus 3.4 Magnesium 2.3 Total Bilirubin 1.8 H D AST 14 L ALT 27 Alkaline Phosphatase 65 Total Protein 6.4 Albumin 3.4 Active Medications Generic Name Dose Route Start Last Admin Trade Name Freq PRN Reason Stop Dose Admin Aspirin 81 mg 07/29/16 18:30 07/31/16 10:24 Asa - PO 81 mg DAILY [facility] Administration Atorvastatin Calcium 80 mg 07/28/16 22:00 07/31/16 21:13 Lipitor - PO 80 mg HS [facility] Administration Chlorhexidine Gluconate 1 applic 07/28/16 22:00 07/31/16 21:13 Hibiclens For Decolonization - TP 1 applic HS [facility] Administration Clopidogrel Bisulfate 75 mg 07/29/16 18:45 07/31/16 10:24 Plavix - PO 75 mg DAILY [facility] Administration Heparin Sodium (Porcine) 5,000 unit 07/29/16 22:00 08/01/16 05:58 Heparin - SQ 5,000 unit TID [facility] Administration Hydralazine HCl 10 mg 07/31/16 11:15 08/01/16 05:58 Apresoline Injection - IVPUSH Not Given TID [facility] Nicardipine HCl 25 mg/ 250 mls @ 25 mls/hr 07/28/16 16:15 07/31/16 20:00 Dextrose IVPB Not Given TITR [facility] Protocol 2.5 MG/HR Insulin Aspart 1 vial 07/28/16 22:00 08/01/16 07:12 Novolog Vial Sliding Scale - SQ Not Given ACHS [facility] Protocol Losartan Potassium 100 mg 08/01/16 08:30 Cozaar - PO DAILY [facility] Metoprolol Succinate 50 mg 07/31/16 08:30 07/31/16 10:24 Toprol Xl - PO Not Given DAILY [facility] Mupirocin 1 applic 07/28/16 22:00 07/31/16 21:13 Bactroban Ointment (For Decolonization) - NS 08/02/16 21:59 1 applic BID [facility] Administration ASSESSMENT/PLAN: 60 y/o man w/ a Hx/o HTN, DMII, HL, and CAD who presents to the ED today c/o worsening exertional dyspnea X past 3 mos. Pt reports SOB w/ minimal walking. during stress test patient developed Hemiplegia and global aphasia found to have CVA two ischemic strokes on DWI/ADC. Given TPA within 45 minutes. CVA s/p TPA: Acute cute Hemiplegia affecting dominant side resolved, global aphasia resolved, Expressive Aphasia improving. -NIHSS 5 -MRI brain: two ischemic strokes on DWI/ADC. -Neuro check q2h -On MRI brain yesterday , done after tpa there is no bleed on GRE. Repeat Ct head at 5pm. -Cont ASA 81mg and Plavix 75mg today, heparin 5, 000 units tid. - PT/ST/OT -VS check Q4H: any change in mental status, sudden onset DRAPER, focal neurlogical deficit will warrant emergent CT and neuro surgery consulted. CAD (coronary artery disease)- History non-obstructive CAD in the past cardiac cath with no stenting two years ago. Negative cardiac markers x 4 -S/p KIKO -. no intracardiac thrombus or shunt, mod global LF dysfunction -Cont cozaar 100 and toprol at 50 -Cont lipitor, ASA, plavix -AC warranted given no documented clot or afib so far will re start asa and plavix once repeat CT is negative for bleed at 5pm. Dilated cardiomyopathy: Dyspnea on exertion, Acute Lower extremity edema: Unclear etiology. Possible related to chronic HTN. Unclear if ischemic vs. non- ischemic etiology secondary to CHF -Doppler U/S neg for DVT -Adequate perfusion. Improvement of volume status. -Severely decreased LVEF (25-30%). Severe LVD with global hypokinesis. Mod RVD with moderately decreased RV function. Mod bi-atrial enlargement. Trace MR. -Patient requires CV work up for iscehmic and non-ischemic etiologies once stable. -Continue cardiac monitoring. -Strick I & O. DM: -hga1c 8.1 -ISS HTN: -Losartan Potassium 100 mg -Metoprolol Succinate 50 mg Hyperlipidemia: LDL 131- -cont atorvastatin 80 mg daily Carotid stenosis: CTA - Right ICA stenosis is 70%. Left ICA stenosis of 30%, Left frontal stroke. - R Cerebellum CVA supplied by posterior circulation no carotid. - Stoke probably came from heart, since left ICA stenosis is only 30% - cont ASA and [id number]. - statin 80mg po daily - No need for surgery per vascular surgery. -KIKO on Monday. DVT prophylaxis - start heparin sq. once repeat CT negative for bleed. Bed rest for now- PT/OT eval FEN- Speech and swallow eval-done: no impairment - Recommendations Diet Consistency: Dysphagia Whole Medication Administration: Crushed with applesauce (or place medication that can not be crushed in applesauce, followed by water.) Liquids: Thin Liquids Replete electrolytes as needed Despo: Ok to transfer out to tele Visit type - Emergency Visit Emergency Visit: Yes ED Registration Date: 07/28/16 Care time: The patient presented to the Emergency Department on the above date and was hospitalized for further evaluation of their emergent condition. - New Patient This patient is new to me today: No - Critical Care Critical Care patient: Yes Total Critical Care Time (in minutes): 44 Critical Care Statement: The care of this patient involved high complexity decision making to prevent further life threatening deterioration of the patient 's condition and/or to evalute & treat vital organ system(s) failure or risk of failure.
[2016-08-01] MEDS: LOSARTAN POTASSIUM 50 MG TABLET (FP) PO SCH ×2 (10:00→10:53)
[2016-08-01] MEDS: MUPIROCIN 2% TOPICAL OINTMENT FOR DECOLONIZATION NS SCH (10:52)
[2016-08-01] MEDS: CLOPIDOGREL BISULFATE 75 MG TABLET (FP) PO SCH (10:52)
[2016-08-01] MEDS: ASPIRIN 81 MG CHEWABLE TABLETS PO SCH (10:52)
[2016-08-01] MEDS: METOPROLOL SUCCINATE 50 MG TAB.SR.24H (FP) PO SCH (10:53)
--- NOTE | 2016-08-01 11:09 | PN ---
Progress Note, Physician Chief Complaint: Stroke History of Present Illness: 60 year old man with history of vascular risk factors including diabetes, hypertension, hyperlipidemia, CAD, presented to ED with exertional dyspnea. On July 28 developed right hemiparesis and aphasia, NIHSS 15, status post IV-TPA MRI brain non hemorrhagic left frontal and right cerebellar infarcts MRA head and neck- 70% L ICA stenosis, 30% R ICA stenosis - vascular surgery recommends medical management Echo- LV function severely reduced, mod dilated LA Currently on aspirin and plavix Has noted improvement in speech and right side weakness. Plan for KIKO today. - Current Medication List Current Medications: Active Medications Aspirin (Asa -) 81 mg PO DAILY [facility] Last Admin: 08/01/16 10:52 Dose: 81 mg Atorvastatin Calcium (Lipitor -) 80 mg PO HS [facility] Last Admin: 07/31/16 21:13 Dose: 80 mg Chlorhexidine Gluconate (Hibiclens For Decolonization -) 1 applic TP HS [facility] Last Admin: 07/31/16 21:13 Dose: 1 applic Clopidogrel Bisulfate (Plavix -) 75 mg PO DAILY [facility] Last Admin: 08/01/16 10:52 Dose: 75 mg Heparin Sodium (Porcine) (Heparin -) 5,000 unit SQ TID [facility] Last Admin: 08/01/16 05:58 Dose: 5,000 unit Hydralazine HCl (Apresoline Injection -) 10 mg IVPUSH TID [facility] Last Admin: 08/01/16 05:58 Dose: Not Given Nicardipine HCl 25 mg/ (Dextrose) 250 mls @ 25 mls/hr IVPB TITR [facility]; 2.5 MG/HR PRN Reason: Protocol Last Admin: 07/31/16 20:00 Dose: Not Given Insulin Aspart (Novolog Vial Sliding Scale -) 1 vial SQ ACHS [facility] PRN Reason: Protocol Last Admin: 08/01/16 07:12 Dose: Not Given Losartan Potassium (Cozaar -) 100 mg PO DAILY [facility] Last Admin: 08/01/16 10:53 Dose: Not Given Metoprolol Succinate (Toprol Xl -) 50 mg PO DAILY [facility] Last Admin: 08/01/16 10:53 Dose: 50 mg Mupirocin (Bactroban Ointment (For Decolonization) -) 1 applic NS BID [facility] Stop: 08/02/16 21:59 Last Admin: 08/01/16 10:52 Dose: 1 applic - Objective Vital Signs: Vital Signs Temperature 98.1 F 08/01/16 10:00 Pulse Rate 93 H 08/01/16 10:00 Respiratory Rate 20 08/01/16 10:00 Blood Pressure 124/80 08/01/16 10:00 O2 Sat by Pulse Oximetry (%) 98 08/01/16 08:00 Constitutional: Yes: No Distress, Calm Eyes: Yes: Conjunctiva Clear, EOM Intact HENT: Yes: Atraumatic, Normocephalic Cardiovascular: Yes: S1, S2 Respiratory: Yes: Regular Neurological: Yes: Alert, Oriented (+left facial weakness, diminished fluency. Able to name and repeat Mild right hemiparesis) Labs: CBC, BMP 08/01/16 05:05 08/01/16 05:05 INR, PTT INR 1.18 (0.82-1.09) H 07/29/16 05:10 Assessment/Plan 60 year old man with history of vascular risk factors including diabetes, hypertension, hyperlipidemia, CAD, presented to ED with exertional dyspnea. On July 28 developed right hemiparesis and aphasia, NIHSS 15, status post IV- TPA. Has noted improvement in speech and right side weakness. Plan for KIKO today. Left frontal and right cerebellar stroke S/p IV TPA 07/28/16 NIHSS 5 MRI brain non hemorrhagic left frontal and right cerebellar infarcts MRA head and neck- 70% L ICA stenosis, 30% R ICA stenosis - vascular surgery recommends medical management Echo- LV function severely reduced, mod dilated LA Currently on aspirin and plavix Plan for KIKO today Multiple bilateral strokes, possible embolic etiology, if PAF confirmed, will eventually require AC Will follow
--- NOTE | 2016-08-01 11:15 | PN ---
Progress Note (short form) - Note Progress Note: ID Consult dictated 60 y/o male admitted to ICU s/p acute CVA Hospital day #4 Now with leukocytosis Source of elevated WBC not clear Afebrile No localizing signs/ symptoms Obtain cultures Observe off antibiotics Discussed with family Critical care time 35min
--- NOTE | 2016-08-01 12:17 | CONS ---
INFECTIOUS DISEASE CONSULTATION DATE OF CONSULTATION: DATE OF DICTATION: 08/01/2016 The patient is a 60-year-old male evaluated for leukocytosis. He was admitted to the hospital on July 28, 2016 with a several-weeks history of worsening dyspnea and dizziness. He also apparently had a syncopal episode prior to admission. He was noted to have an elevated blood pressure. The patient was sent for a stress test. However, during the procedure, he developed an acute onset of dysarthria, right facial droop and right hemiparesis. A code esposito was called. CAT scan of the head showed a right posterior cerebellar infarct, which was likely old. He received PPA. MRI subsequently showed a left frontal infarct. Patient has been in the intensive care unit where his neurological condition has been improving. He has been afebrile; however, today was noted to have a white blood cell count of 14,000. The patient is out of bed to chair. He is awake and alert. He is conversant. However, he is somewhat dysarthric. He offers no focal complaint. He has been afebrile. He denies any shaking chills. No complaints of chest pain, shortness of breath, cough or sputum production. No complaints of abdominal pain, vomiting or diarrhea. Denies dysuria or hematuria. Patient has been constipated. Has had no diarrhea. He has not received corticosteroids during his admission. PAST MEDICAL HISTORY: Positive for diabetes mellitus, hypertension, hyperlipidemia, coronary artery disease. ALLERGIES: No known allergies. MEDICATIONS: Cozaar, heparin, Toprol, hydralazine, Lipitor, NovoLog, aspirin, Plavix. SOCIAL HISTORY: He lives at home with family members. A nonsmoker, nondrinker. SYSTEMS REVIEW: Neurologic: As per HPI. Cardiac: Negative chest pain or palpitations. Respiratory: As per HPI. Gastrointestinal: Negative vomiting or diarrhea. Genitourinary: Negative for urinary tract infection. LABORATORY DATA: White count 14.1, 76 neutrophils, 14 lymphocytes, 8 monocytes, hematocrit 35.6, platelet count 268. BUN 27, creatinine 1.1. Blood cultures are pending. Urinalysis and urine culture are pending. Chest x-ray negative for acute infiltrate. PHYSICAL EXAM: General: He is out of bed to chair, in no acute distress. He is awake, alert, conversant but dysarthric. Vital signs: Temperature 98.1, blood pressure 124/80, pulse 93/regular, respirations 20 per minute. HEENT: Sclera anicteric. No conjunctival hemorrhages. Oropharynx negative. Neck supple, no palpable nodes. Heart sounds: S1, S2. No murmur. Lungs: Clear. No rhonchi, rales or wheezing. Abdomen: Soft, no tenderness elicited. No mass, rebound or rigidity. Extremities: 1+ edema. IMPRESSION: 60-year-old male admitted to ICU status post acute CVA, now with elevated white blood cell count, hospital day number 4. Source of elevated white blood cell count not clear. He is presently afebrile with no localizing signs or symptoms of infection. PLAN: 1. Will obtain cultures. 2. At the present, observe off antibiotic therapy. Should patient develop fever, worsening leukocytosis or identifiable source of infection, will start empiric antibiotic therapy. For now, will observe off. 3. Will follow. Critical care time: 35 minutes. Case was discussed with family members present at the time of the examination. Thank you for the kind referral. LIZETTE GARAY M.D. [id number]
--- NOTE | 2016-08-01 12:31 | EKG ---
Test Reason : Blood Pressure : / mmHG Vent. Rate : 084 BPM Atrial Rate : 084 BPM P-R Int : 142 ms QRS Dur : 122 ms QT Int : 418 ms P-R-T Axes : 059 -60 065 degrees QTc Int : 493 ms SINUS RHYTHM WITH OCCASIONAL PREMATURE VENTRICULAR COMPLEXES LEFT ANTERIOR FASCICULAR BLOCK LEFT VENTRICULAR HYPERTROPHY WITH QRS WIDENING ABNORMAL ECG WHEN COMPARED WITH ECG OF 29-JUL-2016 08:53, PREMATURE VENTRICULAR COMPLEXES ARE NOW PRESENT RIGHT BUNDLE BRANCH BLOCK IS NO LONGER PRESENT Confirmed by CHANTEL GARCIA MD ([id number]) on 08/01/2016 12:31:09 PM Referred By: RUMA PAL Confirmed By:CHANTEL GARCIA MD
[2016-08-01] MEDS ORDERED: LIDOCAINE VISCOUS 2% ORAL/TOP 100 ML BOTTLE MM ONE (12:33)
--- NOTE | 2016-08-01 13:24 | PN ---
Progress Note, Physician History of Present Illness: No new events - Current Medication List Current Medications: Active Medications Aspirin (Asa -) 81 mg PO DAILY [facility] Last Admin: 08/01/16 10:52 Dose: 81 mg Atorvastatin Calcium (Lipitor -) 80 mg PO HS [facility] Last Admin: 07/31/16 21:13 Dose: 80 mg Chlorhexidine Gluconate (Hibiclens For Decolonization -) 1 applic TP HS [facility] Last Admin: 07/31/16 21:13 Dose: 1 applic Clopidogrel Bisulfate (Plavix -) 75 mg PO DAILY [facility] Last Admin: 08/01/16 10:52 Dose: 75 mg Heparin Sodium (Porcine) (Heparin -) 5,000 unit SQ TID [facility] Last Admin: 08/01/16 05:58 Dose: 5,000 unit Hydralazine HCl (Apresoline Injection -) 10 mg IVPUSH TID [facility] Last Admin: 08/01/16 05:58 Dose: Not Given Nicardipine HCl 25 mg/ (Dextrose) 250 mls @ 25 mls/hr IVPB TITR [facility]; 2.5 MG/HR PRN Reason: Protocol Last Admin: 07/31/16 20:00 Dose: Not Given Insulin Aspart (Novolog Vial Sliding Scale -) 1 vial SQ ACHS [facility] PRN Reason: Protocol Last Admin: 08/01/16 11:00 Dose: Not Given Losartan Potassium (Cozaar -) 100 mg PO DAILY [facility] Last Admin: 08/01/16 10:53 Dose: Not Given Metoprolol Succinate (Toprol Xl -) 50 mg PO DAILY [facility] Last Admin: 08/01/16 10:53 Dose: 50 mg Mupirocin (Bactroban Ointment (For Decolonization) -) 1 applic NS BID [facility] Stop: 08/02/16 21:59 Last Admin: 08/01/16 10:52 Dose: 1 applic - Objective Vital Signs: Vital Signs Temperature 98.0 F 08/01/16 12:00 Pulse Rate 90 08/01/16 12:00 Respiratory Rate 20 08/01/16 12:00 Blood Pressure 136/73 08/01/16 12:00 O2 Sat by Pulse Oximetry (%) 98 08/01/16 08:00 Constitutional: Yes: No Distress Eyes: Yes: Conjunctiva Clear HENT: Yes: Atraumatic Neck: Yes: Supple Cardiovascular: Yes: Regular Rate and Rhythm Respiratory: Yes: CTA Bilaterally Gastrointestinal: Yes: Normal Bowel Sounds, Soft, Abdomen, Obese. No: Tenderness Edema: No Peripheral Pulses WNL: Yes Neurological: Yes: Alert, Oriented Psychiatric: Yes: Alert, Oriented Labs: CBC, BMP 08/01/16 05:05 08/01/16 05:05 INR, PTT INR 1.18 (0.82-1.09) H 07/29/16 05:10 - ....Imaging Other: Other (tele -. SR KIKO -. prelim: No intracardiac thrombus or shunt) Assessment/Plan 60 yo male with DM type 2, HTN, hyperlipidemia, and reported mild CAD (No record available) admitted due to ICU after acute CVA (Frontal, cerebellar) Acute Stroke Continue ICU care. Please follow Neurology recommendations. On Nicardipine drip. Please consider switching it to Labetalol drip for BP control if no able to take po medications. KIKO on Monday for evaluation of embolic source. Please keep patient NPO after Monday Midnight. Dilated CMP. Unclear etiology. Possible related to chronic HTN. Unclear if ischemic vs. non- ischemic etiology Possible non-obstructive CAD in the past. Negative cardiac markers. Ischemic evaluation deferred for now (due to acute CVA) Seen by vascular -. no surgical intervention warranted for the carotid dz HD stable -> IV cardene tapered to off Cozaar and toprol increased yesterday BP controlled now Leukocyosis -. ? source S/p KIKO -. no intracardiac thrombus or shunt, mod global LF dysfunction Rec: Cont cozaar 100 and toprol at 50 Cont lipitor, ASA, plavix I discussed findings of KIKO with neuro, Dr Ag -. doesn't think AC warranted given no documented clot or afib so far -. we did talk about ILR as an option to cont assessing for afib Ok to transfer out to tele Per neuro/IM D/W family at bedside and Dr Little
--- NOTE | 2016-08-01 14:34 | CONSULT ---
Consult Consult Specialty:: PM&R Reason for Consultation:: weakness - History of Present Illness Chief Complaint: "I'm okay" History of Present Illness: This is a 60 year old man with a medical history of HTN, HLD, CAD, DMT2, who presented to the ED 07/27/16 with OLVERA x1 month. He was admitted for cardiac work- up. 07/28/16 while at cardiac stress test, developed sudden- onset R weakness and R face droop. Stroke code was called; CT head showed acute to subacute R cerebellar CVA, and MRI brain showed acute nonhemorrhagic L frontal lobe CVA. MRA showed 70% L ICA stenosis and 30% R ICA stenosis. He received tPa. He was admitted for further monitoring to the ICU. Endocrinology was consulted for hypertensive crisis. He was also seen by Neurology and Cardiology. 07/29/16 BLE doppler US was negative for DVT, and 07/29/16 carotid US showed no hemodynamically significant stenosis- Vascular consult felt no surgical intervention was warranted. ST found mild dysphagia. ID was consulted 08/01/16 for asymptomatic leukocytosis, who recommended blood cultures and monitoring off abx. He underwent KIKO 08/01/16, with prelim report showing no intracardiac thrombus or shunt with moderate global LV dysfunction.He was not been seen by PT. Physiatry is being consulted for further rehabilitation and medical management. - History Source History Provided By: Patient, Family Member, Medical Record - Past Medical History Cardio/Vascular: Yes: CAD (Mild non-obstructive CAD per reported cath 3 years ago), HTN, Hyperlipdemia Endocrine: Yes: Diabetes Mellitus - Alcohol/Substance Use Hx Alcohol Use: No History of Substance Use: reports: None - Smoking History Smoking history: Never smoked - Social History Usual Living Arrangement: With Spouse (lives with and son in apartment with 2 steps to enter) ADL: Independent (in ADLs/ IADLs without Assistive Device) Occupation: [employer] History of Recent Travel: No Home Medications - Allergies Allergies/Adverse Reactions: Allergies Allergy/AdvReac Type Severity Reaction Status Date / Time No Known Allergies Allergy Verified 07/28/16 07:19 - Home Medications Home Medications: Ambulatory Orders Aspirin [ASA -] 81 mg PO DAILY 07/28/16 Furosemide 20 mg PO DAILY 07/28/16 Glipizide 4 mg PO BID 07/28/16 Metformin HCl 500 mg BID 07/28/16 Metoprolol Succinate [Toprol Xl -] 25 mg PO DAILY 07/28/16 Piroxicam 20 mg PO DAILY 07/28/16 Valsartan [Diovan] 160 mg PO DAILY 07/28/16 Review of Systems Findings/Remarks: denies fevers, chills, changes in vision/ hearing/ mood, CP, SOB, abdominal pain , nausea, vomiting, constipation, diarrhea, dysuria, muscle/ joint pain, numbness/ tingling. He reports speech and weakness much improved. Physical Exam Vital Signs: Vital Signs Temperature 97.9 F 08/01/16 14:00 Pulse Rate 79 08/01/16 14:00 Respiratory Rate 20 08/01/16 14:00 Blood Pressure 125/75 08/01/16 14:00 O2 Sat by Pulse Oximetry (%) 98 08/01/16 08:00 Musculoskeletal: Yes: Other (General: calm M sitting in bed NAD, AAO x2 (date is 06/02/16) HEENT: NCAT EOMI OP clear N/M: +R face droop with L tongue deviation otherwise CN II- XII grossly Intact; B shoulder flexion to 120 degrees,) Labs: CBC, BMP 08/01/16 05:05 08/01/16 05:05 Imaging - Results Cat Scan: Report Reviewed (as per HPI) Ultrasound: Report Reviewed (as per HPI) MRI: Report Reviewed (as per HPI) Other: Report Reviewed (as per HPI) Assessment/Plan Impression: 1) Deficits mobility/ ADLs 2) Deconditioning 3) Acute nonhemorrhagic L frontal lobe CVA and acute to subacute R cerebellar CVA s/p 07/28/16 tPa 4) B carotid stenosis 5) Mild dysphagia 6) Leukocytosis with blood cx pending 7) hx HTN, HLD, CAD with dilated CMP 8) hx DMT2 9) Prerenal azotemia 10) Aphasia improving 11) Obesity 12) Up to date flu/ pneumovax Recommendations: 1) PT for stretching strengthening ROM bed mobility transfers balance stairs, balance 2) Falls, safety precautions 3) Cardiac, diabetic precautions 4) Appreciate ST consult 5) DVT ppx: on hep sc 6) Denies constipation on current bowel regimen 7) Skin protection: float heels, frequent turning 8) Monitor BMP given renal function 9) Continue Neurology/ medical plan 10) Discharge planning: d/w family and pt re: possible need for acute inpatient rehabilitation for aphasia, fine motor skills and ambulation. Family prefers that pt be discharged to home with home services but would consider inpatient rehabilitation if imperative. Will order PT evaluation and determine discharge plan as he progress. Thank you for this referral.
--- NOTE | 2016-08-01 15:23 | PN ---
Progress Note, SERVICE BAR CASHIER - Note Progress Note: Patient seen at bedside for swallowing follow up and speech therapy. Able to tolerate thin liquids without signs of aspiration. Requires increased time to masticate solids. Rx: continue dysphagia whole diet with thin liquids. Able to answer "wh-" questions @ 80% with increased time to respond. Follows 1 step commands @ 90% Performs confrontation naming of ADL objects @ 70% spontaneously; mild paraphasias and apraxic errors are present. Naming improves to 90% with initial phonemic cues. SERVICE BAR CASHIER provided education for patient, spouse and son regarding allowing patient increased response time, and to offer descriptive or initial phonemic cueing to facilitate word retrieval. Patient waiting to speak with MD; will either go to STR or receive outpt PT/OT/ ST services.
--- NOTE | 2016-08-01 16:10 | PN ---
Teaching Attending Note Name of Resident: Ana Barrios ATTENDING PHYSICIAN STATEMENT I saw and evaluated the patient. I reviewed the resident's note and discussed the case with the resident. I agree with the resident's findings and plan as documented. SUBJECTIVE: Patient seen and examined in the ICU. Awake and alert. Overall Neuro status has improved. KIKO : No thrombus. Intake & Output 07/29/16 07/30/16 07/31/16 08/01/16 23:59 23:59 23:59 23:59 Intake Total 237.5 350.0 962.5 900 Balance 237.5 350.0 962.5 900 Weight 257 lb 2 oz 257 lb 5 oz 259 lb 258 lb 6 oz Last Vital Signs Temp Pulse Resp BP Pulse Ox 97.9 F 79 20 125/75 98 08/01/16 14:00 08/01/16 14:00 08/01/16 14:00 08/01/16 14:00 08/01/16 08:00 Active Medications Aspirin (Asa -) 81 mg PO DAILY [facility] Atorvastatin Calcium (Lipitor -) 80 mg PO HS [facility] Clopidogrel Bisulfate (Plavix -) 75 mg PO DAILY [facility] Heparin Sodium (Porcine) (Heparin -) 5,000 unit SQ TID [facility] Hydralazine HCl (Apresoline Injection -) 10 mg IVPUSH TID [facility] Insulin Aspart (Novolog Vial Sliding Scale -) 1 vial SQ ACHS [facility] PRN Reason: Protocol Losartan Potassium (Cozaar -) 100 mg PO DAILY [facility] Metoprolol Succinate (Toprol Xl -) 50 mg PO DAILY [facility] Exam: General: awake, alert, NAD HEENT: PERRL CV: NSR Pulm: Clear Ext: WWP, no edema Neuro: AOx3, CORDERO 5/5, right facial drop stable Laboratory Results - last 24 hr 07/31/16 07/31/16 07/31/16 05:10 11:34 16:56 WBC RBC Hgb Hct MCV MCHC RDW Plt Count MPV Neutrophils % Lymphocytes % Monocytes % Eosinophils % Basophils % Sodium Potassium Chloride Carbon Dioxide Anion Gap BUN Creatinine Creat Clearance w eGFR POC Glucometer [phone] [phone] Random Glucose Calcium Phosphorus Magnesium Total Bilirubin AST ALT Alkaline Phosphatase Total Protein Albumin 07/31/16 08/01/16 08/01/16 21:32 05:05 05:05 WBC 14.1 H D RBC 4.00 Hgb 12.1 Hct 35.6 MCV 89.0 MCHC 34.0 RDW 15.0 Plt Count 268 MPV 7.6 Neutrophils % 76.3 Lymphocytes % 14.5 D Monocytes % 8.2 Eosinophils % 0.4 Basophils % 0.6 Sodium 136 Potassium 4.6 Chloride 100 Carbon Dioxide 26 Anion Gap 10 BUN 27 H D Creatinine 1.1 Creat Clearance w eGFR > 60 POC Glucometer 198.75356 Random Glucose 171 H D Calcium 8.6 Phosphorus 3.4 Magnesium 2.3 Total Bilirubin 1.8 H D AST 14 L ALT 27 Alkaline Phosphatase 65 Total Protein 6.4 Albumin 3.4 08/01/16 06:13 WBC RBC Hgb Hct MCV MCHC RDW Plt Count MPV Neutrophils % Lymphocytes % Monocytes % Eosinophils % Basophils % Sodium Potassium Chloride Carbon Dioxide Anion Gap BUN Creatinine Creat Clearance w eGFR POC Glucometer [phone] Random Glucose Calcium Phosphorus Magnesium Total Bilirubin AST ALT Alkaline Phosphatase Total Protein Albumin Problem List - Problems (1) Acute ischemic left middle cerebral artery (MCA) stroke Code(s): I63.512 - CEREB INFRC D/T UNSP OCCLS OR STENOS OF LEFT MID CEREB ART (2) Aphasia complicating stroke Code(s): I63.9 - CEREBRAL INFARCTION, UNSPECIFIED R47.01 - APHASIA (3) CAD (coronary artery disease) Code(s): I25.10 - ATHSCL HEART DISEASE OF [place] CORONARY ARTERY W/O ANG PCTRS (4) Elevated blood pressure reading Code(s): R03.0 - ELEVATED BLOOD-PRESSURE READING, W/O DIAGNOSIS OF HTN (5) Hyperlipidemia Code(s): E78.5 - HYPERLIPIDEMIA, UNSPECIFIED (6) Diabetes Code(s): E11.9 - TYPE 2 DIABETES MELLITUS WITHOUT COMPLICATIONS Assessment/Plan Acute non-hemorrhagic CVA S/P TPA Aspiration precautions O2 as needed Incentive spirometer Early PT/OT Titrate BP meds as needed (? Add Spironolactone) ASA and plavix Lipitor Stroke unit monitoring Dr Bonilla CCTime 35"
[2016-08-01 18:32] LABS: URINE APPEARANCE CLEAR; URINE BILIRUBIN NEGATIVE (NEGATIVE); URINE BLOOD NEGATIVE (NEGATIVE); URINE COLOR YELLOW; URINE GLUCOSE (UA) 1+ (NEGATIVE); URINE KETONE NEGATIVE (NEGATIVE); URINE NITRITE NEGATIVE (NEGATIVE); URINE PROTEIN NEGATIVE (NEGATIVE); URINE UROBILINOGEN NEGATIVE E.U./dl (0.2-1.0)
[2016-08-01 18:37] LABS: URINE LEUK ESTERASE 1+ (NEGATIVE)
[2016-08-01 18:41] LABS: URINE MUCUS RARE; URINE RBC <1 /hpf (0-3); URINE WBC 69 /hpf (3-5)
[2016-08-01] MEDS ORDERED: CHLORHEXIDINE GLUCONATE 4% CLEANSER FOR DECOLONIZATION TP SCH (22:00)
[2016-08-01] MEDS: ATORVASTATIN CA 80 MG TABLET (FP) PO SCH (22:40)
[2016-08-02] MEDS: hydrALAZINE HCL 20 MG/ML VIAL IVPUSH SCH (05:54)
[2016-08-02] MEDS: HEPARIN NA (PORCINE) 5,000 UNITS/ML 1ML VIAL SQ SCH ×3 (06:02→22:17)
[2016-08-02] MEDS: INSULIN SLIDING SCALE (NOVOLOG) 1 VIAL SQ SCH ×4 (06:02→22:18)
[2016-08-02 08:11] LABS: BASOPHIL 0.6 % (0-2.0); EOSINOPHIL 1.1 % (0-4.5); MCHC 33.1 g/dl (32.0-35.9); MEAN CELL VOLUME 90.6 fl (80-96); MEAN PLT VOLUME 8.1 fl (7.5-11.1); NEUTROPHILS 76.3 % (42.8-82.8); PLATELET COUNT 283 K/MM3 (134-434); RDW 15.3 % (11.9-15.9); WHITE BLOOD COUNT 11.8 K/mm3 (4.0-10.0)
--- NOTE | 2016-08-02 08:32 | PN ---
Progress Note, Physician History of Present Illness: PT FEELS BETTER MOVING ALL EXTREMITIES FOLLOWING COMMAND EXPRESSIVE APHASIA--MUCH IMPROVED - Current Medication List Current Medications: Active Medications Aspirin (Asa -) 81 mg PO DAILY [facility] Atorvastatin Calcium (Lipitor -) 80 mg PO HS [facility] Last Admin: 08/01/16 22:40 Dose: 80 mg Clopidogrel Bisulfate (Plavix -) 75 mg PO DAILY [facility] Heparin Sodium (Porcine) (Heparin -) 5,000 unit SQ TID [facility] Last Admin: 08/02/16 06:02 Dose: 5,000 unit Hydralazine HCl (Apresoline -) 25 mg PO TID [facility] Insulin Aspart (Novolog Vial Sliding Scale -) 1 vial SQ ACHS [facility] PRN Reason: Protocol Last Admin: 08/02/16 06:02 Dose: 2 units Losartan Potassium (Cozaar -) 100 mg PO DAILY [facility] Metformin HCl (Glucophage -) 500 mg PO BID@0700,1630 [facility] Metoprolol Succinate (Toprol Xl -) 50 mg PO DAILY [facility] - Objective Vital Signs: Vital Signs Temperature 98.2 F 08/02/16 02:05 Pulse Rate 79 08/02/16 02:05 Respiratory Rate 18 08/02/16 02:05 Blood Pressure 132/73 08/02/16 02:05 O2 Sat by Pulse Oximetry (%) 96 08/01/16 20:57 Cardiovascular: Yes: Regular Rate and Rhythm, Murmur Respiratory: Yes: Regular, CTA Bilaterally Gastrointestinal: Yes: Normal Bowel Sounds, Soft Edema: No Neurological: Yes: Alert, Oriented, Facial Droop, Pre-Existing Deficit Labs: CBC, BMP 08/01/16 05:05 INR, PTT INR 1.18 (0.82-1.09) H 07/29/16 05:10 Problem List - Problems (1) Acute ischemic left middle cerebral artery (MCA) stroke Assessment/Plan: S/P TPA IMPROVING PT EVAL KIKO DONE NO EMBOLI SOURCE ASA Code(s): I63.512 - CEREB INFRC D/T UNSP OCCLS OR STENOS OF LEFT MID CEREB ART (2) Aphasia complicating stroke Code(s): I63.9 - CEREBRAL INFARCTION, UNSPECIFIED R47.01 - APHASIA (3) Dyspnea on exertion Assessment/Plan: S/P LASIX MONITOR ECHO NOTED--LV DYSFUNCTION Code(s): R06.09 - OTHER FORMS OF DYSPNEA (4) CAD (coronary artery disease) Assessment/Plan: FOLLOW CE Code(s): I25.10 - ATHSCL HEART DISEASE OF [place] CORONARY ARTERY W/O ANG PCTRS (5) Diabetes Assessment/Plan: BGM START METFORMIN Code(s): E11.9 - TYPE 2 DIABETES MELLITUS WITHOUT COMPLICATIONS (6) HTN (hypertension) Assessment/Plan: CHANGE HYDRALAZINE TO 25 TID MONITOR BP Code(s): I10 - ESSENTIAL (PRIMARY) HYPERTENSION
[2016-08-02] MEDS: LOSARTAN POTASSIUM 50 MG TABLET (FP) PO SCH (09:24)
[2016-08-02] MEDS: CLOPIDOGREL BISULFATE 75 MG TABLET (FP) PO SCH (09:24)
[2016-08-02] MEDS: METOPROLOL SUCCINATE 50 MG TAB.SR.24H (FP) PO SCH (09:25)
[2016-08-02] MEDS: ASPIRIN 81 MG CHEWABLE TABLETS PO SCH (09:25)
[2016-08-02 11:41] LABS: ERYTHROCYTE SEDIMENTATION RATE 45 mm/hr (0-20)
--- NOTE | 2016-08-02 11:57 | PN ---
Progress Note (short form) - Note Progress Note: Chief Complaint: Stroke History of Present Illness: 60 year old man with history of vascular risk factors including diabetes, hypertension, hyperlipidemia, CAD, presented to ED with exertional dyspnea. On July 28 developed right hemiparesis and aphasia, NIHSS 15, status post IV-TPA MRI brain non hemorrhagic left frontal and right cerebellar infarcts MRA head and neck- 70% L ICA stenosis, 30% R ICA stenosis - vascular surgery recommends medical management Echo- LV function severely reduced, mod dilated LA Currently on aspirin and plavix Has noted improvement in speech and right side weakness. Underwent KIKO yesterday - no clot seen. Discussed with cardiology. Patient refusing exam. As per nursing, not cooperating with nursing staff and refusing to wear monitoring coordinator. - Current Medication List Current Medications: Active Medications Aspirin (Asa -) 81 mg PO DAILY [facility] Last Admin: 08/01/16 10:52 Dose: 81 mg Atorvastatin Calcium (Lipitor -) 80 mg PO HS [facility] Last Admin: 07/31/16 21:13 Dose: 80 mg Chlorhexidine Gluconate (Hibiclens For Decolonization -) 1 applic TP HS [facility] Last Admin: 07/31/16 21:13 Dose: 1 applic Clopidogrel Bisulfate (Plavix -) 75 mg PO DAILY [facility] Last Admin: 08/01/16 10:52 Dose: 75 mg Heparin Sodium (Porcine) (Heparin -) 5,000 unit SQ TID [facility] Last Admin: 08/01/16 05:58 Dose: 5,000 unit Hydralazine HCl (Apresoline Injection -) 10 mg IVPUSH TID [facility] Last Admin: 08/01/16 05:58 Dose: Not Given Nicardipine HCl 25 mg/ (Dextrose) 250 mls @ 25 mls/hr IVPB TITR BASIL; 2.5 MG/HR PRN Reason: Protocol Last Admin: 07/31/16 20:00 Dose: Not Given Insulin Aspart (Novolog Vial Sliding Scale -) 1 vial SQ ACHS [facility] PRN Reason: Protocol Last Admin: 08/01/16 07:12 Dose: Not Given Losartan Potassium (Cozaar -) 100 mg PO DAILY [facility] Last Admin: 08/01/16 10:53 Dose: Not Given Metoprolol Succinate (Toprol Xl -) 50 mg PO DAILY [facility] Last Admin: 08/01/16 10:53 Dose: 50 mg Mupirocin (Bactroban Ointment (For Decolonization) -) 1 applic NS BID BASIL Stop: 08/02/16 21:59 Last Admin: 08/01/16 10:52 Dose: 1 applic - Objective Constitutional: Yes: No Distress, Calm Eyes: Yes: Conjunctiva Clear, EOM Intact HENT: Yes: Atraumatic, Normocephalic Patient refusing examination Assessment/Plan 60 year old man with history of vascular risk factors including diabetes, hypertension, hyperlipidemia, CAD, presented to ED with exertional dyspnea. On July 28 developed right hemiparesis and aphasia, NIHSS 15, status post IV- TPA. Has noted improvement in speech and right side weakness. Left frontal and right cerebellar stroke S/p IV TPA 07/28/16 MRI brain non hemorrhagic left frontal and right cerebellar infarcts MRA head and neck- 70% L ICA stenosis, 30% R ICA stenosis - vascular surgery recommends medical management Echo- LV function severely reduced, mod dilated LA Currently on aspirin and plavix Multiple bilateral strokes, possible embolic etiology, if PAF confirmed, will require AC Underwent KIKO yesterday- no clot seen- discussed with cardiology need for loop recorder given strokes are possibly embolic. Attempted to discuss this with patient and he is refusing exam, states he does not want follow up or further cardiac testing.
--- NOTE | 2016-08-02 13:14 | PN ---
Progress Note, Physician History of Present Illness: OOB in chair Dysarthric No c/o fever/ chills No c/o chest pain/ dyspnea/ cough No dysuria/ hematuria No diarrhea WBC improved BC (-) KIKO no vegetations - Current Medication List Current Medications: Active Medications Aspirin (Asa -) 81 mg PO DAILY [facility] Last Admin: 08/02/16 09:25 Dose: 81 mg Atorvastatin Calcium (Lipitor -) 80 mg PO HS [facility] Last Admin: 08/01/16 22:40 Dose: 80 mg Clopidogrel Bisulfate (Plavix -) 75 mg PO DAILY [facility] Last Admin: 08/02/16 09:24 Dose: 75 mg Heparin Sodium (Porcine) (Heparin -) 5,000 unit SQ TID [facility] Last Admin: 08/02/16 06:02 Dose: 5,000 unit Hydralazine HCl (Apresoline -) 25 mg PO TID [facility] Insulin Aspart (Novolog Vial Sliding Scale -) 1 vial SQ ACHS [facility] PRN Reason: Protocol Last Admin: 08/02/16 12:20 Dose: Not Given Losartan Potassium (Cozaar -) 100 mg PO DAILY [facility] Last Admin: 08/02/16 09:24 Dose: 100 mg Metformin HCl (Glucophage -) 500 mg PO BID@0700,1630 [facility] Metoprolol Succinate (Toprol Xl -) 50 mg PO DAILY [facility] Last Admin: 08/02/16 09:25 Dose: 50 mg - Objective Vital Signs: Vital Signs Temperature 98.2 F 08/02/16 02:05 Pulse Rate 87 08/02/16 10:08 Respiratory Rate 18 08/02/16 02:05 Blood Pressure 132/73 08/02/16 02:05 O2 Sat by Pulse Oximetry (%) 99 08/02/16 10:08 Constitutional: Yes: No Distress Eyes: Yes: Conjunctiva Clear Cardiovascular: Yes: Regular Rate and Rhythm, S1, S2 Respiratory: Yes: CTA Bilaterally Gastrointestinal: Yes: Normal Bowel Sounds, Soft. No: Tenderness Labs: CBC, BMP 08/02/16 06:55 08/01/16 05:05 INR, PTT INR 1.18 (0.82-1.09) H 07/29/16 05:10 Assessment/Plan Leukocytsis-improved S/P CVA No clear source for leukocytosis Afebrile Cultures negative Observe off antibiotics
--- NOTE | 2016-08-02 14:40 | PN ---
Progress Note, Physician History of Present Illness: No palpitations, chest pain, edema, or dyspnea. - Current Medication List Current Medications: Active Medications Aspirin (Asa -) 81 mg PO DAILY [facility] Last Admin: 08/02/16 09:25 Dose: 81 mg Atorvastatin Calcium (Lipitor -) 80 mg PO HS [facility] Last Admin: 08/01/16 22:40 Dose: 80 mg Clopidogrel Bisulfate (Plavix -) 75 mg PO DAILY [facility] Last Admin: 08/02/16 09:24 Dose: 75 mg Heparin Sodium (Porcine) (Heparin -) 5,000 unit SQ TID [facility] Last Admin: 08/02/16 06:02 Dose: 5,000 unit Hydralazine HCl (Apresoline -) 25 mg PO TID [facility] Insulin Aspart (Novolog Vial Sliding Scale -) 1 vial SQ ACHS [facility] PRN Reason: Protocol Last Admin: 08/02/16 12:20 Dose: Not Given Losartan Potassium (Cozaar -) 100 mg PO DAILY [facility] Last Admin: 08/02/16 09:24 Dose: 100 mg Metformin HCl (Glucophage -) 500 mg PO BID@0700,1630 [facility] Metoprolol Succinate (Toprol Xl -) 50 mg PO DAILY [facility] Last Admin: 08/02/16 09:25 Dose: 50 mg - Objective Vital Signs: Vital Signs Temperature 98.4 F 08/02/16 10:00 Pulse Rate 87 08/02/16 10:08 Respiratory Rate 18 08/02/16 10:00 Blood Pressure 121/66 08/02/16 10:00 O2 Sat by Pulse Oximetry (%) 99 08/02/16 10:08 Constitutional: Yes: No Distress Eyes: Yes: Conjunctiva Clear, EOM Intact HENT: Yes: Atraumatic, Normocephalic Respiratory: Yes: CTA Bilaterally Gastrointestinal: Yes: Normal Bowel Sounds, Soft. No: Tenderness Edema: No Peripheral Pulses WNL: No Neurological: Yes: Alert, Oriented, Facial Droop (Mild left facial droop) ...Motor Strength: WNL Psychiatric: Yes: WNL Labs: CBC, BMP 08/02/16 06:55 08/01/16 05:05 INR, PTT INR 1.18 (0.82-1.09) H 07/29/16 05:10 Assessment/Plan 60 yo male with DM type 2, HTN, hyperlipidemia, reported mild CAD (No record available), newly diagnosed dilated cardiomyopathy, and acute CVA (frontal, cerebellar). Ischemic evaluation deferred for now (due to acute CVA). Seen by vascular surgery regarding carotid disease, who recommended medical management for now. BP currently controlled. 07/28/16 Echocardiogram: Severe global hypokinesis with LVEF 25-30% and moderately reduced RV systolic function, biatrial enlargement, and only trace MR /TR. No LV thrombus was appreciated. 08/01/16 KIKO: No intracardiac thrombus or shunt, mod global LV dysfunction RECS: Continue losartan 100 mg po daily and metoprolol succinate 50 mg po daily Continue aspirin, clopidogrel, and atorvastatin. No indicaton for anticoagulation at this time given no documented afib/flutter. Possible outpatient loop recorder to evaluate for occult afib/flutter. If patient remains clinically stable, patient may be discharged from cardiac standpoint with outpatient follow-up to arrange for outpatient stress test versus cardiac catheterization for further evaluation of dilated cardiomyopathy. At follow-up, can readdress topic of implantable loop recorder if patient is agreeable. Currently does not want to have any further procedures at this time.
[2016-08-02] MEDS: hydrALAZINE HCL 25 MG TABLET (FP) PO SCH ×2 (15:03→22:17)
[2016-08-02] MEDS: metFORMIN HCL 500 MG TABLET (FP) PO SCH (17:23)
[2016-08-02] MEDS: ATORVASTATIN CA 80 MG TABLET (FP) PO SCH (22:17)
[2016-08-03] MEDS: INSULIN SLIDING SCALE (NOVOLOG) 1 VIAL SQ SCH ×2 (06:09→11:56)
[2016-08-03] MEDS: hydrALAZINE HCL 25 MG TABLET (FP) PO SCH ×2 (06:09→14:19)
[2016-08-03] MEDS: metFORMIN HCL 500 MG TABLET (FP) PO SCH (06:09)
[2016-08-03] MEDS: HEPARIN NA (PORCINE) 5,000 UNITS/ML 1ML VIAL SQ SCH ×2 (06:10→14:19)
[2016-08-03 09:19] LABS: ALBUMIN 3.5 g/dl (3.4-5.0); ANION GAP 10 (8-16); BILIRUBIN,TOTAL 1.6 mg/dL (0.2-1.0); CO2 27 mmol/L (21-32); CREATININE 1.2 mg/dL (0.7-1.3); GLUCOSE,RANDOM 200 mg/dL (74-106); SGOT/AST 14 U/L (15-37); SGPT/ALT 26 U/L (12-78)
[2016-08-03 09:21] LABS: ALK PHOS 68 U/L (45-117); TOT PROT 6.7 g/dl (6.4-8.2)
[2016-08-03 09:36] VITALS: BP 112/66; PULSE 91
[2016-08-03 09:37] VITALS: TEMP 98.3
[2016-08-03] MEDS: ASPIRIN 81 MG CHEWABLE TABLETS PO SCH (09:38)
[2016-08-03] MEDS: LOSARTAN POTASSIUM 50 MG TABLET (FP) PO SCH (09:38)
[2016-08-03] MEDS: CLOPIDOGREL BISULFATE 75 MG TABLET (FP) PO SCH (09:38)
[2016-08-03] MEDS: METOPROLOL SUCCINATE 50 MG TAB.SR.24H (FP) PO SCH (09:38)
--- NOTE | 2016-08-03 09:43 | DS ---
Physical Examination Vital Signs: Vital Signs Temperature 98.3 F 08/03/16 09:36 Pulse Rate 91 H 08/03/16 09:36 Respiratory Rate 19 08/03/16 09:36 Blood Pressure 112/66 08/03/16 09:36 O2 Sat by Pulse Oximetry (%) 97 08/02/16 21:00 Findings/Remarks: FEELS BETTER WANTS TO GO HOME Neck: Yes: Supple Cardiovascular: Yes: Regular Rate and Rhythm Respiratory: Yes: Regular, CTA Bilaterally Gastrointestinal: Yes: Normal Bowel Sounds, Soft. No: Tenderness Neurological: Yes: Alert, Oriented, Facial Droop Labs: CBC, BMP 08/03/16 08:15 Discharge Summary Reason For Visit: DYSPNEA ON EXERT,ELEVATED BP Current Active Problems Acute ischemic left middle cerebral artery (MCA) stroke (Acute) Aphasia complicating stroke (Acute) CAD (coronary artery disease) (Acute) Carotid artery stenosis (Acute) Carotid stenosis, bilateral (Acute) Carotid stenosis, symptomatic, with infarction (Acute) Diabetes (Acute) Dilated cardiomyopathy (Acute) Dyspnea on exertion (Acute) Elevated blood pressure reading (Acute) HTN (hypertension) (Acute) Hemiplegia affecting dominant side (Acute) Hyperlipidemia (Acute) Lower extremity edema (Acute) Hospital Course: 60 yo male with pmh.of DM type 2, HTN, hyperlipidemia, CAD, on ASA daily, presented to ED for one month exertional dyspnea. He was talking and walking in ED this morning till 1.38pm. He was admitted for cardiac work up and sent to the stress cardiac lab. In the lab.stress test at 2.20pm. it was noticed then he is not talking anymore and he has right facial droop and righs side weakness. Code esposito- stroke code was activated at 2.20pm. in the cardiac stress lab. Pt evaluated in er moving extremities awake can say a few words - Past Medical History Cardiovascular: Yes: CAD (Mild non-obstructive CAD per reported cath 3 years ago ), HTN, Hyperlipdemia Endocrine: Yes: Diabetes Mellitus - Problems (1) Acute ischemic left middle cerebral artery (MCA) stroke Assessment/Plan: S/P TPA IMPROVING PT EVAL KIKO DONE NO EMBOLI SOURCE ASA and PLAVIX Code(s): I63.512 - CEREB INFRC D/T UNSP OCCLS OR STENOS OF LEFT MID CEREB ART (2) Aphasia complicating stroke Code(s): I63.9 - CEREBRAL INFARCTION, UNSPECIFIED R47.01 - APHASIA (3) Dyspnea on exertion Assessment/Plan: S/P LASIX MONITOR ECHO NOTED--LV DYSFUNCTION Code(s): R06.09 - OTHER FORMS OF DYSPNEA (4) CAD (coronary artery disease) Assessment/Plan: FOLLOW CE Code(s): I25.10 - ATHSCL HEART DISEASE OF [place] CORONARY ARTERY W/O ANG PCTRS (5) Diabetes Assessment/Plan: BGM START METFORMIN Code(s): E11.9 - TYPE 2 DIABETES MELLITUS WITHOUT COMPLICATIONS (6) HTN (hypertension) Assessment/Plan: CHANGE HYDRALAZINE TO 25 TID MONITOR BP Code(s): I10 - ESSENTIAL (PRIMARY) HYPERTENSION (7) Leukocytosis Assessment/Plan: CHECK RPT R/O UTI--WILL D/W ID - Instructions Referrals: Smooth Cisneros MD [Primary Care Provider] - 1 Week Disposition: VNS/HOME HEALTH CARE - Home Medications Comprehensive Discharge Medication List: Ambulatory Orders Aspirin [ASA -] 81 mg PO DAILY 07/28/16 Metformin HCl 500 mg BID 07/28/16 Valsartan [Diovan] 160 mg PO DAILY 07/28/16 Atorvastatin Ca [Lipitor] 80 mg PO HS #30 tablet 08/03/16 Clopidogrel Bisulfate [Plavix -] 75 mg PO DAILY #30 tablet 08/03/16 Hydralazine HCl [Apresoline -] 25 mg PO TID #90 tablet 08/03/16 Metoprolol Succinate [Toprol XL -] 50 mg PO DAILY #30 tablet 08/03/16 Sitagliptin Phosphate [Januvia] 50 mg PO DAILY@0700 #30 tablet 08/03/16
[2016-08-03 13:11] LABS: BASOPHIL 0.9 % (0-2.0); MCH 30.1 pg (25.7-33.7); MEAN CELL VOLUME 91.2 fl (80-96); MEAN PLT VOLUME 8.2 fl (7.5-11.1); PLATELET COUNT 287 K/MM3 (134-434); RDW 14.9 % (11.9-15.9); WHITE BLOOD COUNT 8.5 K/mm3 (4.0-10.0)
--- NOTE | 2016-08-03 13:21 | PN ---
Progress Note, Physician History of Present Illness: No palpitations, chest pain, edema, or dyspnea. - Current Medication List Current Medications: Active Medications Aspirin (Asa -) 81 mg PO DAILY [facility] Last Admin: 08/03/16 09:38 Dose: 81 mg Atorvastatin Calcium (Lipitor -) 80 mg PO HS [facility] Last Admin: 08/02/16 22:17 Dose: 80 mg Clopidogrel Bisulfate (Plavix -) 75 mg PO DAILY [facility] Last Admin: 08/03/16 09:38 Dose: 75 mg Heparin Sodium (Porcine) (Heparin -) 5,000 unit SQ TID [facility] Last Admin: 08/03/16 06:10 Dose: 5,000 unit Hydralazine HCl (Apresoline -) 25 mg PO TID [facility] Last Admin: 08/03/16 06:09 Dose: 25 mg Insulin Aspart (Novolog Vial Sliding Scale -) 1 vial SQ ACHS [facility] PRN Reason: Protocol Last Admin: 08/03/16 11:56 Dose: Not Given Losartan Potassium (Cozaar -) 100 mg PO DAILY [facility] Last Admin: 08/03/16 09:38 Dose: 100 mg Metformin HCl (Glucophage -) 500 mg PO BID@0700,1630 [facility] Last Admin: 08/03/16 06:09 Dose: 500 mg Metoprolol Succinate (Toprol Xl -) 50 mg PO DAILY [facility] Last Admin: 08/03/16 09:38 Dose: 50 mg - Objective Vital Signs: Vital Signs Temperature 98.3 F 08/03/16 09:36 Pulse Rate 91 H 08/03/16 09:36 Respiratory Rate 19 08/03/16 09:36 Blood Pressure 112/66 08/03/16 09:36 O2 Sat by Pulse Oximetry (%) 99 08/03/16 09:00 Constitutional: Yes: Well Nourished, No Distress Eyes: Yes: Conjunctiva Clear, EOM Intact HENT: Yes: Atraumatic, Normocephalic Cardiovascular: Yes: Regular Rate and Rhythm, JVD Respiratory: Yes: CTA Bilaterally Gastrointestinal: Yes: Normal Bowel Sounds, Soft. No: Tenderness Edema: No Neurological: Yes: Alert, Oriented Labs: CBC, BMP 08/03/16 08:15 08/03/16 08:15 INR, PTT INR 1.18 (0.82-1.09) H 07/29/16 05:10 Assessment/Plan 60 yo male with DM type 2, HTN, hyperlipidemia, reported mild CAD (No record available), newly diagnosed dilated cardiomyopathy, and acute CVA (frontal, cerebellar). Ischemic evaluation deferred at this time (due to acute CVA). Seen by vascular surgery regarding carotid disease, who recommended medical management for now. BP currently remains controlled. 07/28/16 Echocardiogram: Severe global hypokinesis with LVEF 25-30% and moderately reduced RV systolic function, biatrial enlargement, and only trace MR /TR. No LV thrombus was appreciated. 08/01/16 KIKO: No intracardiac thrombus or shunt, mod global LV dysfunction RECS: Continue losartan 100 mg po daily, metoprolol succinate 50 mg po daily, aspirin , clopidogrel, and atorvastatin. No indicaton for anticoagulation at this time given no documented afib/flutter. Possible outpatient loop recorder to evaluate for occult afib/flutter. Patient remains clinically stable from cardiac standpoint, patient may be discharged from cardiac standpoint with outpatient follow-up in 1-2 weeks to arrange for outpatient stress test versus cardiac catheterization for further evaluation of dilated cardiomyopathy. At follow-up, can readdress topic of implantable loop recorder if patient is agrees. However, patient currently does not want to have any further procedures at this time. Will see prn. Call with questions.
== END 2016-08-03 15:15 | disposition home health service (06) | DRG 62 ==
LOC: JER 06:54 → JERBED 10:18 → OBSVTOIN 17:34 → JERBED 17:34 → JICU 19:00 → J4S 08-01 15:27
PROVIDERS: ADMIT Family Medicine; ATTEND Family Medicine
PROC: 3E03317 Introduction of Other Thrombolytic into Peripheral Vein, Percutaneous Approach (ICD-10-PCS; principal; 2016-07-28)
PROC: B246ZZ4 Ultrasonography of Right and Left Heart, Transesophageal (ICD-10-PCS; 2016-08-01)
DX: I63.512 Cerebral infarction due to unspecified occlusion or stenosis of left middle cerebral artery (principal); I69.351 Hemiplegia and hemiparesis following cerebral infarction affecting right dominant side; I42.0 Dilated cardiomyopathy; I25.10 Atherosclerotic heart disease of native coronary artery without angina pectoris; E78.5 Hyperlipidemia, unspecified; E11.9 Type 2 diabetes mellitus without complications; I10 Essential (primary) hypertension; R29.717 NIHSS score 17; I69.320 Aphasia following cerebral infarction; R06.09 Other forms of dyspnea; F41.8 Other specified anxiety disorders; I65.23 Occlusion and stenosis of bilateral carotid arteries; E66.8 Other obesity; Z68.32 Body mass index [BMI] 32.0-32.9, adult; Z71.3 Dietary counseling and surveillance
CPT/HCPCS: 36415; 70450-TC; 70496-TC; 70498-TC; 70544-TC; 70551-TC; 71010-TC; 80048; 80053; 80061; 81003; 81015; 82088; 82533; 82550; 82553; 83036; 83721; 83735; 83880; 84100; 84439; 84443; 84484; 85025; 85027; 85610; 85651; 85730; 86140; 87040; 87086; 87186; 93005; 93010; 93306-TC; 93312; 93325; 93880-TC; 93970-TC; 97116-GP; 97161-GP; 99283-25; 99285-25; A9502; G0378; J1644; J2997

== ENCOUNTER 2022-09-26 10:24 | Inpatient (IN) | payer OTHER ==
[2022-09-26 10:33] VITALS: BMI 30.3
[2022-09-26] MEDS ORDERED: VANCOMYCIN 1 GM in D5W (PRE-DOCKED) 1,000 MG/250 ML (RESTRICTED TO ID ONLY IVPB ONE (11:53)
[2022-09-26] MEDS ORDERED: PIPERACILLIN/TAZOB 4.5 GM 4.5 GM in DEXTROSE 5%-WATER 100 ML IVPB ONE (11:53)
[2022-09-26] MEDS ORDERED: VANCOMYCIN/WATER FOR INJ (PEG) 1,000 MG/200 ML BAG IVPB ONE (11:58)
[2022-09-26] MEDS ORDERED: PIPERACILLIN/TAZOB 4.5 GM 4.5 GM/100 ML BAG IVPB ONE (11:58)
[2022-09-26 12:47] LABS: BASO % 0.3 % (0-2.0); EOS % 0.5 % (0-4.5); HEMATOCRIT 33.5 % (35.4-49); HEMOGLOBIN 11.4 GM/dL (11.7-16.9); LYMPH % 14.8 % (8-40); MCH 29.8 pg (25.7-33.7); MCHC 34.1 g/dl (32.0-35.9); MEAN CELL VOLUME 87.5 fl (80-96); MONO % 6.8 % (3.8-10.2); NEUT % 77.6 % (42.8-82.8); PLATELET COUNT 175 10^3/uL (134-434); RBC 3.83 M/mm3 (4.00-5.60); RDW 14.4 % (11.9-15.9); WHITE BLOOD COUNT 10.4 K/mm3 (4.0-10.0)
[2022-09-26 13:10] LABS: POTASSIUM 4.2 mmol/L (3.5-5.1)
[2022-09-26 13:13] LABS: ALBUMIN 3.6 g/dl (3.4-5.0); BLOOD UREA NITROGEN 25.9 mg/dL (7-18); CALCIUM 9.2 mg/dL (8.5-10.1)
[2022-09-26 13:16] LABS: CREATININE 1.9 mg/dL (0.55-1.3)
[2022-09-26 13:17] LABS: BILIRUBIN,TOTAL 0.6 mg/dL (0.2-1)
[2022-09-27] MEDS: PIPERACILLIN/TAZOB 4.5 GM 4.5 GM in DEXTROSE 5%-WATER 100 ML IVPB SCH ×4 (02:29→15:44)
[2022-09-27] MEDS: sitaGLIPtin PHOSPHATE 50 MG TABLET PO SCH (06:21)
[2022-09-27] MEDS: TAMSULOSIN HCL 0.4 MG CAP PO SCH (09:00)
[2022-09-27 09:34] LABS: BASO % 0.5 % (0-2.0); EOS % 0.9 % (0-4.5); HEMATOCRIT 35.8 % (35.4-49); LYMPH % 20.2 % (8-40); MCH 29.4 pg (25.7-33.7); MCHC 33.5 g/dl (32.0-35.9); MEAN CELL VOLUME 87.8 fl (80-96); MEAN PLT VOLUME 7.6 fl (7.5-11.1); MONO % 7.8 % (3.8-10.2); NEUT % 70.6 % (42.8-82.8); PLATELET COUNT 217 10^3/uL (134-434); RBC 4.07 M/mm3 (4.00-5.60); RDW 14.2 % (11.9-15.9); WHITE BLOOD COUNT 9.3 K/mm3 (4.0-10.0)
[2022-09-27 09:47] LABS: POTASSIUM 4.1 mmol/L (3.5-5.1)
[2022-09-27] MEDS: VALSARTAN 80 MG TABLET PO SCH (09:56)
[2022-09-27] MEDS: LACTOBACILLUS ACIDOPHILUS 1 TABLET PO SCH (09:57)
[2022-09-27] MEDS: ASPIRIN 81 MG CHEWABLE TABLETS PO SCH (09:57)
[2022-09-27] MEDS: MEMANTINE HCL 10 MG TABLET (FP) PO SCH (09:57)
[2022-09-27] MEDS: GABAPENTIN 100 MG CAPSULE PO SCH (09:57)
[2022-09-27] MEDS: RANOLAZINE E.R. 500 MG TABLET (FP) PO SCH (09:57)
[2022-09-27] MEDS: PIPERACILLIN/TAZOB 2.25 GM 2.25 GM in DEXTROSE 5%-WATER - 50 ML IVPB SCH ×2 (09:58→17:10)
[2022-09-27 10:00] LABS: BLOOD UREA NITROGEN 24.6 mg/dL (7-18); CALCIUM 9.2 mg/dL (8.5-10.1)
[2022-09-27] MEDS ORDERED: VANCOMYCIN 1,000 MG in DEXTROSE 5%-WATER - 250 ML IVPB SCH (10:00)
[2022-09-27] MEDS: DOXYCYCLINE HYCLATE 100 MG CAPSULE PO SCH ×2 (10:00→17:10)
[2022-09-27] MEDS: CYANOCOBALAMIN (VITAMIN B-12) 100 MCG TABLET PO SCH (10:01)
[2022-09-27 10:04] LABS: CREATININE 1.8 mg/dL (0.55-1.3)
[2022-09-27] MEDS ORDERED: VANCOMYCIN/WATER FOR INJ (PEG) 1,000 MG/200 ML BAG IVPB SCH (12:00)
[2022-09-27] MEDS: ROSUVASTATIN CA 20 MG TABLET PO SCH (21:39)
[2022-09-28] MEDS: PIPERACILLIN/TAZOB 2.25 GM 2.25 GM in DEXTROSE 5%-WATER - 50 ML IVPB SCH ×3 (02:03→18:07)
[2022-09-28] MEDS: sitaGLIPtin PHOSPHATE 50 MG TABLET PO SCH (06:06)
[2022-09-28] MEDS: DOXYCYCLINE HYCLATE 100 MG CAPSULE PO SCH ×2 (09:31→18:07)
[2022-09-28] MEDS: GABAPENTIN 100 MG CAPSULE PO SCH (09:31)
[2022-09-28] MEDS: LACTOBACILLUS ACIDOPHILUS 1 TABLET PO SCH (09:31)
[2022-09-28] MEDS: ASPIRIN 81 MG CHEWABLE TABLETS PO SCH (09:31)
[2022-09-28] MEDS: MEMANTINE HCL 10 MG TABLET (FP) PO SCH (09:31)
[2022-09-28] MEDS: RANOLAZINE E.R. 500 MG TABLET (FP) PO SCH (09:31)
[2022-09-28] MEDS: TAMSULOSIN HCL 0.4 MG CAP PO SCH (09:31)
[2022-09-28] MEDS: CYANOCOBALAMIN (VITAMIN B-12) 100 MCG TABLET PO SCH (09:31)
[2022-09-28] MEDS: VALSARTAN 80 MG TABLET PO SCH ×2 (09:32→12:08)
[2022-09-28] MEDS: ROSUVASTATIN CA 20 MG TABLET PO SCH (21:25)
[2022-09-29] MEDS: PIPERACILLIN/TAZOB 2.25 GM 2.25 GM in DEXTROSE 5%-WATER - 50 ML IVPB SCH ×3 (02:54→17:31)
[2022-09-29] MEDS: sitaGLIPtin PHOSPHATE 50 MG TABLET PO SCH (06:09)
[2022-09-29] MEDS: TAMSULOSIN HCL 0.4 MG CAP PO SCH (08:43)
[2022-09-29] MEDS: DOXYCYCLINE HYCLATE 100 MG CAPSULE PO SCH ×2 (09:30→17:28)
[2022-09-29] MEDS: ASPIRIN 81 MG CHEWABLE TABLETS PO SCH (09:30)
[2022-09-29] MEDS: GABAPENTIN 100 MG CAPSULE PO SCH (09:30)
[2022-09-29] MEDS: VALSARTAN 80 MG TABLET PO SCH (09:30)
[2022-09-29] MEDS: RANOLAZINE E.R. 500 MG TABLET (FP) PO SCH (09:30)
[2022-09-29] MEDS: MEMANTINE HCL 10 MG TABLET (FP) PO SCH (09:30)
[2022-09-29] MEDS: LACTOBACILLUS ACIDOPHILUS 1 TABLET PO SCH (09:31)
[2022-09-29] MEDS: CYANOCOBALAMIN (VITAMIN B-12) 100 MCG TABLET PO SCH (09:31)
[2022-09-29] MEDS ORDERED: DOCUSATE SODIUM 100 MG CAPSULE (FP) PO PRN (10:32)
[2022-09-29] MEDS: POLYETHYLENE GLYCOL (HEALTHYLAX) 3350 17 GM PACKET PO SCH (12:28)
[2022-09-29] MEDS: INSULIN SLIDING SCALE (NOVOLOG) 1 VIAL SQ SCH ×2 (16:10→22:19)
[2022-09-29] MEDS: ROSUVASTATIN CA 20 MG TABLET PO SCH (21:09)
[2022-09-30] MEDS: PIPERACILLIN/TAZOB 2.25 GM 2.25 GM in DEXTROSE 5%-WATER - 50 ML IVPB SCH ×3 (01:51→19:05)
[2022-09-30] MEDS: INSULIN SLIDING SCALE (NOVOLOG) 1 VIAL SQ SCH ×4 (06:01→21:53)
[2022-09-30] MEDS: sitaGLIPtin PHOSPHATE 50 MG TABLET PO SCH (06:01)
[2022-09-30] MEDS: TAMSULOSIN HCL 0.4 MG CAP PO SCH (08:35)
[2022-09-30 08:40] LABS: HEMATOCRIT 33.8 % (35.4-49); HEMOGLOBIN 11.7 GM/dL (11.7-16.9); MCH 30.2 pg (25.7-33.7); MCHC 34.5 g/dl (32.0-35.9); MEAN CELL VOLUME 87.6 fl (80-96); MEAN PLT VOLUME 7.5 fl (7.5-11.1); PLATELET COUNT 200 10^3/uL (134-434); RBC 3.86 M/mm3 (4.00-5.60); RDW 14.2 % (11.9-15.9); WHITE BLOOD COUNT 7.4 K/mm3 (4.0-10.0)
[2022-09-30 08:54] LABS: POTASSIUM 4.3 mmol/L (3.5-5.1)
[2022-09-30 09:06] LABS: CALCIUM 9.1 mg/dL (8.5-10.1)
[2022-09-30 09:07] LABS: BLOOD UREA NITROGEN 21.9 mg/dL (7-18)
[2022-09-30 09:10] LABS: CREATININE 1.7 mg/dL (0.55-1.3)
[2022-09-30 09:12] LABS: TOT PROT 6.6 g/dl (6.4-8.2)
[2022-09-30 09:13] LABS: BILIRUBIN,TOTAL 1.5 mg/dL (0.2-1)
[2022-09-30] MEDS: DOXYCYCLINE HYCLATE 100 MG CAPSULE PO SCH ×2 (09:13→21:36)
[2022-09-30] MEDS: RANOLAZINE E.R. 500 MG TABLET (FP) PO SCH (09:14)
[2022-09-30] MEDS: GABAPENTIN 100 MG CAPSULE PO SCH (09:14)
[2022-09-30] MEDS: VALSARTAN 80 MG TABLET PO SCH (09:14)
[2022-09-30] MEDS: LACTOBACILLUS ACIDOPHILUS 1 TABLET PO SCH (09:14)
[2022-09-30] MEDS: POLYETHYLENE GLYCOL (HEALTHYLAX) 3350 17 GM PACKET PO SCH (09:16)
[2022-09-30] MEDS: MEMANTINE HCL 10 MG TABLET (FP) PO SCH (09:16)
[2022-09-30] MEDS ORDERED: SODIUM CHLORIDE 0.45% 1,000 ML IV SCH (10:00)
[2022-09-30] MEDS: CYANOCOBALAMIN (VITAMIN B-12) 100 MCG TABLET PO SCH (10:48)
[2022-09-30 12:06] LABS: INR 1.26 (0.83-1.09); PROTHROMBIN TIME (PATIENT) 14.6 SEC (9.7-13.0)
[2022-09-30 12:09] LABS: ACTIVATED PTT 30.8 SECONDS (25.2-36.5)
[2022-09-30] MEDS ORDERED: HEPARIN NA (PORCINE) 5,000 UNITS/ML 1ML VIAL ONE (14:35)
[2022-09-30] MEDS ORDERED: DEXMEDETOMIDINE HCL 200 MCG/2 ML IVPB ONE (15:02)
[2022-09-30] MEDS ORDERED: MIDAZOLAM HCL 2 MG/2 ML SINGLE DOSE VIAL ONE (15:08)
[2022-09-30] MEDS ORDERED: LIDOCAINE HCL 1%, 10 MG/ML (20ML VIAL) NR ONE ×2 (15:36)
[2022-09-30] MEDS ORDERED: HEPARIN NA (PORCINE) 5,000 UNITS/ML 1ML VIAL SQ ONE ×2 (15:37)
[2022-09-30] MEDS ORDERED: DOCUSATE SODIUM 100 MG CAPSULE (FP) PO PRN ×2 (17:31→17:34)
[2022-09-30 18:53] VITALS: RESP 18
[2022-09-30] MEDS: SODIUM CHLORIDE 0.45% 1,000 ML IV SCH (18:56)
[2022-09-30] MEDS ORDERED: CLOPIDOGREL BISULFATE 75 MG TABLET (FP) PO ONE (19:10)
[2022-09-30] MEDS ORDERED: ASPIRIN 81 MG CHEWABLE TABLETS PO ONE (19:10)
[2022-09-30] MEDS: LACTATED RINGERS SOLUTION 1,000 ML IV SCH (21:36)
[2022-09-30] MEDS: ROSUVASTATIN CA 20 MG TABLET PO SCH (21:36)
[2022-10-01] MEDS: PIPERACILLIN/TAZOB 2.25 GM 2.25 GM in DEXTROSE 5%-WATER - 50 ML IVPB SCH ×3 (01:32→17:59)
[2022-10-01] MEDS: sitaGLIPtin PHOSPHATE 50 MG TABLET PO SCH (06:21)
[2022-10-01] MEDS: INSULIN SLIDING SCALE (NOVOLOG) 1 VIAL SQ SCH ×4 (06:21→21:41)
[2022-10-01] MEDS: RANOLAZINE E.R. 500 MG TABLET (FP) PO SCH (09:05)
[2022-10-01] MEDS: POLYETHYLENE GLYCOL (HEALTHYLAX) 3350 17 GM PACKET PO SCH (09:05)
[2022-10-01] MEDS: ASPIRIN 81 MG CHEWABLE TABLETS PO SCH (09:05)
[2022-10-01] MEDS: DOXYCYCLINE HYCLATE 100 MG CAPSULE PO SCH ×2 (09:05→17:59)
[2022-10-01] MEDS: GABAPENTIN 100 MG CAPSULE PO SCH (09:05)
[2022-10-01] MEDS: VALSARTAN 80 MG TABLET PO SCH (09:06)
[2022-10-01] MEDS: CLOPIDOGREL BISULFATE 75 MG TABLET (FP) PO SCH (09:06)
[2022-10-01] MEDS: LACTOBACILLUS ACIDOPHILUS 1 TABLET PO SCH (09:06)
[2022-10-01] MEDS: TAMSULOSIN HCL 0.4 MG CAP PO SCH (09:06)
[2022-10-01] MEDS: MEMANTINE HCL 10 MG TABLET (FP) PO SCH (09:06)
[2022-10-01] MEDS: CYANOCOBALAMIN (VITAMIN B-12) 100 MCG TABLET PO SCH (09:06)
[2022-10-01 10:08] LABS: POTASSIUM 4.6 mmol/L (3.5-5.1)
[2022-10-01 10:38] LABS: CALCIUM 9.4 mg/dL (8.5-10.1)
[2022-10-01 10:39] LABS: BLOOD UREA NITROGEN 19.4 mg/dL (7-18)
[2022-10-01 10:42] LABS: CREATININE 1.6 mg/dL (0.55-1.3)
[2022-10-01] MEDS: SODIUM CHLORIDE 0.45% 1,000 ML IV SCH (15:28)
[2022-10-01] MEDS: ROSUVASTATIN CA 20 MG TABLET PO SCH (21:42)
[2022-10-02] MEDS: LACTATED RINGERS SOLUTION 1,000 ML IV SCH (00:15)
[2022-10-02] MEDS: SODIUM CHLORIDE 0.45% 1,000 ML IV SCH ×2 (02:00→11:12)
[2022-10-02] MEDS: PIPERACILLIN/TAZOB 2.25 GM 2.25 GM in DEXTROSE 5%-WATER - 50 ML IVPB SCH ×2 (02:01→09:00)
[2022-10-02] MEDS: INSULIN SLIDING SCALE (NOVOLOG) 1 VIAL SQ SCH ×3 (06:36→16:58)
[2022-10-02] MEDS: sitaGLIPtin PHOSPHATE 50 MG TABLET PO SCH (06:39)
[2022-10-02] MEDS ORDERED: INSULIN (LEVEMIR) 100 UNITS/ML UNITS SQ SCH (07:00)
[2022-10-02] MEDS: CYANOCOBALAMIN (VITAMIN B-12) 100 MCG TABLET PO SCH (09:00)
[2022-10-02] MEDS: GABAPENTIN 100 MG CAPSULE PO SCH (09:00)
[2022-10-02] MEDS: MEMANTINE HCL 10 MG TABLET (FP) PO SCH (09:00)
[2022-10-02] MEDS: LACTOBACILLUS ACIDOPHILUS 1 TABLET PO SCH (09:01)
[2022-10-02] MEDS: ASPIRIN 81 MG CHEWABLE TABLETS PO SCH (09:01)
[2022-10-02] MEDS: DOXYCYCLINE HYCLATE 100 MG CAPSULE PO SCH (09:01)
[2022-10-02] MEDS: POLYETHYLENE GLYCOL (HEALTHYLAX) 3350 17 GM PACKET PO SCH (09:01)
[2022-10-02] MEDS: CLOPIDOGREL BISULFATE 75 MG TABLET (FP) PO SCH (09:01)
[2022-10-02] MEDS: RANOLAZINE E.R. 500 MG TABLET (FP) PO SCH (09:01)
[2022-10-02] MEDS: TAMSULOSIN HCL 0.4 MG CAP PO SCH (09:01)
[2022-10-02] MEDS: VALSARTAN 80 MG TABLET PO SCH (09:01)
[2022-10-02 14:38] VITALS: BP 148/79; PULSE 67; TEMP 97.5
[2022-10-02] MEDS ORDERED: AMOX TR/POT CLAV 500MG/125MG TABLETS (FP) PO SCH (17:30)
== END 2022-10-02 17:01 | disposition home or self-care (01) | DRG 271 ==
LOC: JER 10:24 → JERBED 14:44 → J5S 21:18 → OBSVTOIN 09-27 07:18
PROVIDERS: ADMIT Internal Medicine; ATTEND Family Medicine
PROC: 04CT3ZZ Extirpation of Matter from Right Peroneal Artery, Percutaneous Approach (ICD-10-PCS; 2022-09-30)
PROC: 047T3ZZ Dilation of Right Peroneal Artery, Percutaneous Approach (ICD-10-PCS; principal; 2022-09-30 15:30)
DX: E11.51 Type 2 diabetes mellitus with diabetic peripheral angiopathy without gangrene (principal); L97.518 Non-pressure chronic ulcer of other part of right foot with other specified severity; I25.10 Atherosclerotic heart disease of native coronary artery without angina pectoris; E78.00 Pure hypercholesterolemia, unspecified; E78.5 Hyperlipidemia, unspecified; E66.9 Obesity, unspecified; Z68.30 Body mass index [BMI] 30.0-30.9, adult; I70.298 Other atherosclerosis of native arteries of extremities, other extremity; E11.621 Type 2 diabetes mellitus with foot ulcer; L03.115 Cellulitis of right lower limb; F03.90 Unspecified dementia, unspecified severity, without behavioral disturbance, psychotic disturbance, mood disturbance, and anxiety; I12.9 Hypertensive chronic kidney disease with stage 1 through stage 4 chronic kidney disease, or unspecified chronic kidney disease; E11.22 Type 2 diabetes mellitus with diabetic chronic kidney disease; N18.30 Chronic kidney disease, stage 3 unspecified; Z86.73 Personal history of transient ischemic attack (TIA), and cerebral infarction without residual deficits
CPT/HCPCS: 0241U-QW; 36415; 71045-TC-FY; 73630-TC-RT-FY; 73721-RT-TC; 76000-TC-FY; 80048; 80053; 82962; 83036; 83540; 83550; 85025; 85027; 85610; 85651; 85730; 86140; 87040; 87070; 87186; 87205; 93005; 93010; 93926-TC; 94760; 99285-25; C1760; G0378; J1644